=== PATIENT | female | born 1950 | race Caucasian/White ===

== ENCOUNTER 2017-03-10 22:05 | Inpatient (IN) | payer MEDICARE, BC ==
[2017-03-10] MEDS ORDERED: METHYLPREDNISOLONE PF 125MG/VIAL IVP ONE (22:08)
[2017-03-10] MEDS ORDERED: IPRATROPIUM/ALBUTEROL (0.5MG/3MG) NEB INH ONE (22:08)
--- NOTE | 2017-03-10 22:14 | Emergency Department Record ---
History of Present Illness - General Chief Complaint: Shortness of breath Stated Complaint: GUI Time Seen by Provider: 03/10/17 22:06 Source: Patient, EMS Mode of Arrival: EMS Limitations: No limitations - History of Present Illness Initial Comments: 66 yo female presents with several days of increasing shortness of breath. She was driving to the ED tonight for these symptoms and had to ticket puller and call EMS. She has a history of COPD. She reports cough with clear sputum. NO chest pain. She was place on CPAP with very good improvement in the field. She quit smoking 8 years ago. PCP [place]. ROJAS Complaint: Shortness of breath -: Days(s) Severity: Severe Quality: Other Consistency: Intermittent Improves With: Nothing Worsens With: Coughing Known History Of: COPD Associated Symptoms: Cough Treatments Prior to Arrival: None - Related Data Previous Rx's Medication Instructions Recorded Fluticasone/Salmeterol [Advair 1 puff INH BID #1 disk.w.dev 12/31/15 250-50 Diskus] Allergies Allergy/AdvReac Type Severity Reaction Status Date / Time No Known Drug Allergies Allergy Verified 05/11/16 15:09 Review of Systems Constitutional: Denies: Chills, Fever, Malaise, Weakness Eyes: Denies: Eye discharge ENT: Denies: Congestion, Throat pain Respiratory: Reports: Cough, Dyspnea, Wheezes Cardiovascular: Reports: Dyspnea on exertion. Denies: Edema Endocrine: Denies: Fatigue, Polydipsia, Polyuria Gastrointestinal: Denies: Abdominal pain, Diarrhea, Nausea, Vomiting Genitourinary: Denies: Dysuria, Urgency Musculoskeletal: Denies: Arthralgia, Back pain, Joint swelling, Myalgia Skin: Denies: Change in color, Rash Neurological: Denies: Headache, Numbness, Weakness Psychiatric: Denies: Anxiety Hematological/Lymphatic: Denies: Blood Clots, Easy bleeding, Easy bruising, Swollen glands Past Medical History - SOCIAL HISTORY Smoking Status: Former smoker - RESPIRATORY Hx Respiratory Disorders: Yes Hx Bronchitis: Yes Hx COPD: Yes Hx Pneumonia: Yes Comment:: November 2015-GUI collapsed, intubated x 24hrs. - CARDIOVASCULAR Hx Cardio Disorders: Yes Hx Coronary Artery Disease: Yes Comment:: carotid artery stent, murmur - NEURO Hx Neuro Disorders: No - GI Hx GI Disorders: Yes Hx Obstructive Bowel: Yes (d/t adhesions) - Hx Genitourinary Disorders: No - ENDOCRINE Hx Endocrine Disorders: Yes Hx Diabetes: (N/A) Hx Thyroid Disease: Yes (overactive thyroid) - MUSCULOSKELETAL Hx Musculoskeletal Disorders: Yes Hx Arthritis: Yes Hx Gout: Yes (x 1) Hx Osteoporosis: Yes - PSYCH Hx Psych Problems: Yes Hx Anxiety: Yes - HEMATOLOGY/ONCOLOGY Hx Hematology/Oncology Disorders: No Family Medical History Hx Cancer: Mother, Brother/Sister *Cancer Comment: uterine Hx Diabetes: Father, Mother, Brother/Sister Hx Heart Disease: Father Hx Stroke: Mother Physical Exam - General General Appearance: Alert, Oriented x3, Cooperative, Mild distress, Anxious, Other (Alert, answers all questions) Limitations: No limitations - Head Head exam: Normal inspection - Eye Eye exam: Normal appearance, PERRL. negative: Conjunctival injection - ENT ENT exam: Normal exam, Mucous membranes moist Ear exam: Normal external inspection Nasal Exam: Normal inspection Mouth exam: Normal external inspection - Neck Neck exam: Normal inspection, Full ROM. negative: Tenderness - Respiratory Respiratory exam: Accessory muscle use, Decreased breath sounds, Prolonged expiratory, Respiratory distress (mild), Rhonchi, Wheezes. negative: Normal lung sounds bilaterally - Cardiovascular Cardiovascular Exam: Regular rate, Normal rhythm, Normal heart sounds - GI/Abdominal GI/Abdominal exam: Soft. negative: Tenderness - Rectal Rectal exam: Deferred - exam: Deferred - Extremities Extremities exam: Normal inspection, Full ROM, Normal capillary refill. negative: Pedal edema, Tenderness - Back Back exam: Reports: Normal inspection, Full ROM. Denies: Muscle spasm, Rash noted, Tenderness - Neurological Neurological exam: Alert, Normal gait, Oriented X3 - Psychiatric Psychiatric exam: Normal affect, Normal mood - Skin Skin exam: Dry, Intact, Normal color, Warm Course - Reevaluation(s) Reevaluation #1: The patient is improved after the Duoneb The work of breathing has improved EKG 22:26 NSR rate is 96, the axis is normal, the intervals are normal, ST normal. 03/10/17 22:40 03/10/17 22:55 The patient is resting comfortably alert on her baseline 2 liters that she uses at night. 03/10/17 23:07 The CBC was reviewed. No acute changes The CMP was without significant changes. The BNP was mildly elevated The CXR was read as being consistent COPD with bibasilar atelectasis. 03/10/17 23:10 The Troponin is negative The plan is to admit for COPD exacerbation 03/10/17 23:16 The patient is stable for admission. No clinical signs of oxygen retention. She will be kept on her typical oxygen of 2 liters Medical Decision Making - Lab Data Result diagrams: 03/10/17 22:22 03/10/17 22:22 Disposition Disposition: Admit Clinical Impression: COPD (chronic obstructive pulmonary disease) Disposition: Still a Patient at [facility] Decision to Admit: Admit from ER Decision to Admit Date: 03/10/17 Decision to Admit Time: 23:11 Condition: (2) Stable Forms: Patient Portal Access Time of Disposition: 22:42 Quality - Quality Measures Quality Measures: N/A - Blood Pressure Screening Does Patient Have Any of the Following: No Blood Pressure Classification: Pre-Hypertensive BP Reading Systolic Measurement: 133 Diastolic Measurement: 86 Screening for High Blood Pressure: < Pre-Hypertensive BP, F/U Documented > [ [id number]] Pre-Hypertensive Follow-up Interventions: Referral to alternative/primary care provider.
[2017-03-10 22:29] LABS: BASO % 1.2 % (0-6); EOS % 2.6 % (0-6); GRAN % 58.1 % (47-80); HEMATOCRIT 40.9 % (35.0-47.0); HEMOGLOBIN 12.9 gm/dl (11.6-16.0); LYMPH % 23.5 % (16-45); MEAN CORPUSCULAR HEMOGLOBIN 26.8 pg (27-33); MEAN CORPUSCULAR HGB CONC 31.5 g/dl (32-36); MEAN PLATELET VOLUME 10.1 fl (7.4-10.4); MONO % 14.6 % (0-9); PLATELET COUNT 489 K/uL (130-400); RED BLOOD COUNT 4.81 M/uL (3.80-5.40); RED CELL DISTRIBUTION WIDTH 13.8 % (11.5-14.5); WHITE BLOOD COUNT W/O DIFF 7.3 K/uL (4.2-12.2)
[2017-03-10 22:44] LABS: ALB/GLOB RATIO 0.9 (1.1-1.8); ALBUMIN 3.7 g/dL (4.0-5.0); ALKALINE PHOSPHATASE 76 U/L (35-104); ALT/SGPT 14 U/L (<33); AST/SGOT 18 U/L (10.0-35.0); BLOOD UREA NITROGEN 11 mg/dL (8-23); CREATININE 0.6 mg/dL (0.5-0.9); EST GLOMERULAR FILTRATION RATE > 60 mL/min; GLUCOSE,RANDOM 103 mg/dL (74-109); TOTAL PROTEIN 7.7 g/dL (6.6-8.7)
[2017-03-10] MEDS ORDERED: ACETAMINOPHEN 500 MG TABLET PO PRN (23:33)
[2017-03-10] MEDS ORDERED: ALBUTEROL SULFATE (0.083%) 2.5 MG/3 ML NEB INH PRN (23:33)
[2017-03-10] MEDS: METHYLPREDNISOLONE PF 125MG/VIAL IVP SCH (23:34)
[2017-03-10 23:43] LABS: INR 0.96; PROTHROMBIN TIME (PATIENT) 10.4 SECONDS (9.5-12.1)
[2017-03-10] MEDS: CEFTRIAXONE SODIUM 1 GM in 0.9 % SODIUM CHLORIDE 100ML 100 ML IVPB SCH (23:56)
[2017-03-11] MEDS: IPRATROPIUM/ALBUTEROL (0.5MG/3MG) NEB INH SCH ×6 (03:32→22:10)
[2017-03-11] MEDS: METHYLPREDNISOLONE PF 125MG/VIAL IVP SCH ×2 (08:25→15:38)
[2017-03-11] MEDS: AZITHROMYCIN 500 MG TABLET PO SCH (09:32)
[2017-03-11] MEDS: ENOXAPARIN 40 MG/0.4 ML SYR SQ SCH (09:32)
--- NOTE | 2017-03-11 13:53 | RADIOLOGY REPORT ---
EXAM: CHEST AP or PA ONLY HISTORY: DIFFICULTY IN BREATHING, COUGH FOR A COUPLE WEEKS NOW. INCREASING SHORTNESS OF BREATH. SOME CHILLS. TECHNIQUE: AP portable chest. COMPARISON: AP chest 05/11/16. FINDINGS: Heart size appears stable, within normal limits. Lungs again appear hyperinflated suggesting COPD. Considerable clearing of the left base in the interval with a minor amount of bibasilar streaky atelectasis or infiltrate currently. No definite pleural effusion or pneumothorax evident. IMPRESSION: 1. HYPERINFLATION SUGGESTING COPD. 2. MILD BIBASILAR STREAKY ATELECTASIS OR INFILTRATE. JOB NUMBER: [id number] MTDD
--- NOTE | 2017-03-11 14:52 | History & Physical ---
History of Present Illness - Date of Service Date of Service for History & Physical: 03/11/17 - History of Present Illness Admitting Diagnosis: COPD exacerbation History of Present Illness: 66yo female with CC of difficulty in breathing. She has history of COPD, hyperthyroidism, osteoporosis, anxiety, CAD and carotid artery stenosis. She was last hospitalized for COPD exacerbation in April of 2016. She has had one exacerbation requiring intubation in 2016. Patient had been feeling poorly for about 4 days. Says she developed a cough which she usually does not have that has been productive of white phlegm at times. Has been feeling more short of breath. Was at her daughter's house last night and used her rescue inhaler before trying to drive home. She got about half way home and felt very SOB and pulled over. EMS was called and brought her to the ED. Patient arrived by EMS with good response to the CPAP according to ED physician. Heart rate was 93bpm, O2 sat was 92% on room air with 20 RR. BP was 133/86. EKG showed sinus rhythm without ST changes. She had a CXR that showed bibasilar streaks but no definite infiltrate. She received a duoneb breathing treatment with improvement of her work of breathing and was placed on 2L o2 via NC. First set of CE returned wnl range and the rest of her labs were unremarkable. she was admitted for COPD exacerbation. 03/11/17- patient states she is feeling better today but not back to baseline. She reports that she no longer feels short of breath and is resting comfortably without evidence of respiratory distress. She continues to wear the 2L of O2 via NC. She says her cough is a little less frequent today. Denies chest pain. Does feel like she gets winded easily walking to the bathroom. Still follows with pulmonology. she can't remember name but thinks he is at [facility]. pcp: [facility] Travel Screening - Travel/Exposure Within Last 30 Days Have you traveled within the last 30 days?: No - Travel/Exposure Within Last Year Have you traveled outside the [place] in the last year?: No - Additonal Travel Details Have you been exposed to anyone with a communicable illness?: No - Travel Symptoms Symptom Screening: None Review of Systems Constitutional: Denies: Chills, Fever, Malaise, Weakness Eyes: Denies: Eye discharge ENT: Denies: Congestion, Throat pain Respiratory: Reports: Cough, Dyspnea, Wheezes Cardiovascular: Reports: Dyspnea on exertion. Denies: Edema Endocrine: Denies: Fatigue, Polydipsia, Polyuria Gastrointestinal: Denies: Abdominal pain, Diarrhea, Nausea, Vomiting Genitourinary: Denies: Dysuria, Urgency Musculoskeletal: Denies: Arthralgia, Back pain, Joint swelling, Myalgia Skin: Denies: Change in color, Rash Neurological: Denies: Headache, Numbness, Weakness Psychiatric: Denies: Anxiety Hematological/Lymphatic: Denies: Blood Clots, Easy bleeding, Easy bruising, Swollen glands Past Medical History - SOCIAL HISTORY Smoking Status: Former smoker Alcohol Use: None Drug Use: None - RESPIRATORY Hx Respiratory Disorders: Yes Hx Bronchitis: Yes Hx COPD: Yes Hx Pneumonia: Yes Comment:: November 2015-GUI collapsed, intubated x 24hrs. - CARDIOVASCULAR Hx Cardio Disorders: Yes Hx Abnormal EKG: Yes Hx Irregular Heartbeat: Yes Hx Coronary Artery Disease: Yes Comment:: carotid artery stent, murmur - NEURO Hx Neuro Disorders: No Comment:: Rt Sided carotid stent - GI Hx GI Disorders: Yes Hx Obstructive Bowel: Yes (d/t adhesions) - Hx Genitourinary Disorders: No - ENDOCRINE Hx Endocrine Disorders: Yes Hx Diabetes: (N/A) Hx Thyroid Disease: Yes (overactive thyroid) - MUSCULOSKELETAL Hx Musculoskeletal Disorders: Yes Hx Arthritis: Yes Hx Gout: Yes (x 1) Hx Osteoporosis: Yes - PSYCH Hx Psych Problems: Yes Hx Anxiety: Yes - HEMATOLOGY/ONCOLOGY Hx Hematology/Oncology Disorders: No Family Medical History Any Significant Family History?: Yes Hx Cancer: Mother, Brother/Sister *Cancer Comment: uterine Hx Diabetes: Father, Mother, Brother/Sister Hx Heart Disease: Father Hx Stroke: Mother H&P Meds/Allergies - Allergies Allergies: Allergies Allergy/AdvReac Type Severity Reaction Status Date / Time No Known Drug Allergies Allergy Verified 05/11/16 15:09 - Home Medications Previous Rx's Medication Instructions Recorded Fluticasone/Salmeterol [Advair 1 puff INH BID #1 disk.w.dev 12/31/15 250-50 Diskus] - Active Medications Active Medications: Current Medications Acetaminophen (Tylenol 500mg Tab) 500 mg PO Q6H PRN PRN Reason: PAIN/TEMP Albuterol Sulfate () 2.5 mg INH RESP.Q2H PRN PRN Reason: DIFFICULTY IN BREATHING Albuterol/Ipratropium (Duoneb) 3 ml INH RESP.Q4H.WA [facility] Last Admin: 03/11/17 14:06 Dose: 3 ml Azithromycin (Zithromax) 500 mg PO DAILY [facility] Last Admin: 03/11/17 09:32 Dose: 500 mg Ezetimibe (Zetia) 10 mg PO QHS [facility] Enoxaparin Sodium (Lovenox) 40 mg SQ DAILY [facility] Last Admin: 03/11/17 09:32 Dose: 40 mg Ceftriaxone Sodium 1 gm/ (Sodium Chloride) 100 mls @ 100 mls/hr IVPB Q24H [facility] Stop: 03/16/17 00:01 Last Infusion: 03/11/17 01:07 Dose: Infused Methylprednisolone Sodium Succinate (Solu-Medrol) 60 mg IVP Q8H [facility] Last Admin: 03/11/17 08:25 Dose: 65 mg Non-Formulary Medication (Raloxifene Hcl [Evista]) 60 mg PO DAILY [facility] Simvastatin (Zocor) 80 mg PO QHS [facility] Physical Exam - Vital Signs Vital Signs: Vital Signs - Last 24 Hrs Temp Pulse Pulse Resp BP Pulse Ox 03/11/17 10:20 96 H 20 93 L 03/11/17 09:00 97 H 20 03/11/17 07:33 98.5 F 97 H 20 132/68 93 L 03/11/17 05:51 94 H 18 97 03/11/17 03:33 96 H 20 98 03/10/17 23:33 98.9 F 83 24 113/38 93 L 03/10/17 23:32 16 - General General Appearance: Alert, Oriented x3, Cooperative, No acute distress Limitations: No limitations - Head Head exam: Normal inspection - Eye Eye exam: Normal appearance, PERRL. negative: Conjunctival injection - ENT ENT exam: Normal exam, Mucous membranes moist Ear exam: Normal external inspection Nasal Exam: Normal inspection Mouth exam: Normal external inspection - Neck Neck exam: Normal inspection, Full ROM. negative: Tenderness - Respiratory Respiratory exam: Decreased breath sounds, Prolonged expiratory. negative: Normal lung sounds bilaterally, Accessory muscle use, Respiratory distress, Rhonchi, Wheezes - Cardiovascular Cardiovascular Exam: Regular rate, Normal rhythm, Normal heart sounds - GI/Abdominal GI/Abdominal exam: Soft. negative: Tenderness - Rectal Rectal exam: Deferred - exam: Deferred - Extremities Extremities exam: Normal inspection, Full ROM, Normal capillary refill. negative: Pedal edema, Tenderness - Back Back exam: Reports: Normal inspection, Full ROM. Denies: Muscle spasm, Rash noted, Tenderness - Neurological Neurological exam: Alert, Normal gait, Oriented X3 - Psychiatric Psychiatric exam: Normal affect, Normal mood - Skin Skin exam: Dry, Intact, Normal color, Warm Results - Labs Result Diagrams: 03/10/17 22:22 03/10/17 22:22 Labs Last 24 Hours: Laboratory Results - last 24 hr 03/11/17 05:30 Troponin T < 0.010 - Imaging and Cardiology Chest x-ray Status: Report reviewed (bibasilar streaking; no definite infiltrate) VTE H&P Assessment - Risk for VTE Risk for VTE: Yes Risk Level: Moderate Risk Assessment Date: 03/11/17 Risk Assessment Time: 15:26 VTE Orders Placed or Will Be Placed: Yes Plan - Inpatient Certification Inpatient Certification: Admit to inpatient care: Based on my medical assessment, after consideration of patient's risk factors (age, co-morbidities and patient presenting symptoms and acuity), I expect that this patient will remain in the hospital greater than or equal to two midnights and that the services needed warrant inpatient care because: Patient Risk Factors: [age, COPD with exacerbation, respiratory distress] Estimated length of stay: [48-72H] The patient may reasonably be expected to be discharged or transferred to a hospital within 96 hours after admission to [facility]. Services needed: [IV abx, IV steroids, supplemental oxygen] Post hospital care (if known): [] I certify that my determination is in accordance with my understanding of Medicare requirements for reasonable and necessary inpatient services. 03/11/17 15:26 - Detailed Diagnosis and Plan (1) COPD with acute exacerbation Current Visit: No Status: Acute Base Code: J44.1 - CHRONIC OBSTRUCTIVE PULMONARY DISEASE W (ACUTE) EXACERBATION Comment: 03/11/17- Improved. respiratory rate stable at 20 and no increased work of breathing/accessory muscle use. Patient states her GUI has improved as well as her cough. CXR negative for infiltrate. Cardiac enzymes wnl x3. EKG continues to show NSR. -cotninue solumdedrol 60mg IV q8H. will transition to daily tomorrow. -continue rocephin 1gm IV daily and azithromycin 500mg po daily -continue oxygen via NC 2L -continue home inhalers, spiriva and advair -cotninue duoneb q4H prn sob -labs qam -vitals q8H (2) DVT prophylaxis Current Visit: No Status: Acute Base Code: [id number] - Comment: 03/11/17- lovenox 40mg sq daily (3) Full code status Current Visit: Yes Status: Acute Base Code: Z78.9 - OTHER SPECIFIED HEALTH STATUS Comment: 03/11/17- patient is full code.
[2017-03-11] MEDS ORDERED: SIMVASTATIN PO SCH (22:00)
[2017-03-11] MEDS ORDERED: EZETIMIBE PO SCH (22:00)
[2017-03-11] MEDS: SIMVASTATIN 20 MG TABLET PO SCH (22:17)
[2017-03-11] MEDS: EZETIMIBE 10 MG TABLET PO SCH (22:17)
[2017-03-12] MEDS: METHYLPREDNISOLONE PF 125MG/VIAL IVP SCH ×3 (01:00→10:07)
[2017-03-12] MEDS: CEFTRIAXONE SODIUM 1 GM in 0.9 % SODIUM CHLORIDE 100ML 100 ML IVPB SCH (01:02)
[2017-03-12] MEDS: IPRATROPIUM/ALBUTEROL (0.5MG/3MG) NEB INH SCH ×6 (02:17→22:08)
[2017-03-12 06:43] LABS: BASO % 0.1 % (0-6); HEMATOCRIT 36.7 % (35.0-47.0); HEMOGLOBIN 11.4 gm/dl (11.6-16.0); LYMPH % 4.7 % (16-45); MEAN CELL VOLUME 85.2 fl (81-97); MEAN CORPUSCULAR HGB CONC 31.1 g/dl (32-36); MEAN PLATELET VOLUME 9.7 fl (7.4-10.4); MONO % 2.1 % (0-9); PLATELET COUNT 506 K/uL (130-400); RED BLOOD COUNT 4.31 M/uL (3.80-5.40); RED CELL DISTRIBUTION WIDTH 13.8 % (11.5-14.5)
[2017-03-12 06:56] LABS: MEAN CORPUSCULAR HEMOGLOBIN 26.4 pg (27-33)
[2017-03-12 07:13] LABS: ANISOCYTOSIS 1+; PLATELET ESTIMATE INCREASED (NORMAL)
[2017-03-12 08:06] LABS: ALBUMIN 3.4 g/dL (4.0-5.0); ALKALINE PHOSPHATASE 61 U/L (35-104); ALT/SGPT 11 U/L (<33); AST/SGOT 12 U/L (10.0-35.0); BLOOD UREA NITROGEN 13 mg/dL (8-23); CREATININE 0.5 mg/dL (0.5-0.9); EST GLOMERULAR FILTRATION RATE > 60 mL/min; GLUCOSE,RANDOM 163 mg/dL (74-109); TOTAL PROTEIN 6.8 g/dL (6.6-8.7)
[2017-03-12] MEDS: ENOXAPARIN 40 MG/0.4 ML SYR SQ SCH (09:37)
[2017-03-12] MEDS: AZITHROMYCIN 500 MG TABLET PO SCH (09:37)
--- NOTE | 2017-03-12 11:41 | Physician Progress Note ---
Subjective - Date Date of Physician Progress Note: 03/12/17 - Subjective Subjective Comment: 03/12/17- Patient states she continues to improve. still having some cough that is not productive but more than her baseline. She is no longer having difficulty in breathing. Had one episode last night where she started coughing and couldn't stop which made her feel anxious and short of breath. That resolved. She hasn't felt like she needs the oxygen today. Objective - Vital Signs Vital Signs: Vital Signs - Last 24 Hrs Temp Pulse Pulse Resp BP Pulse Ox 03/12/17 10:09 92 H 18 03/12/17 08:00 99.1 F 95 H 18 123/62 95 03/12/17 05:53 96 H 18 93 L 03/12/17 02:18 79 18 99 03/12/17 00:00 98.1 F 95 H 20 117/63 95 03/11/17 22:10 102 H 18 93 L 03/11/17 21:00 97 H 18 03/11/17 18:58 93 H 18 28 L 03/11/17 15:00 98.8 F 99 H 18 127/69 93 L - General General Appearance: Alert, Oriented x3, Cooperative, No acute distress Limitations: No limitations - Head Head exam: Normal inspection - Eye Eye exam: Normal appearance, PERRL. negative: Conjunctival injection - ENT ENT exam: Normal exam, Mucous membranes moist Ear exam: Normal external inspection Nasal Exam: Normal inspection Mouth exam: Normal external inspection - Neck Neck exam: Normal inspection, Full ROM. negative: Tenderness - Respiratory Respiratory exam: Decreased breath sounds, Prolonged expiratory. negative: Normal lung sounds bilaterally, Accessory muscle use, Respiratory distress, Rhonchi, Wheezes - Cardiovascular Cardiovascular Exam: Regular rate, Normal rhythm, Normal heart sounds - GI/Abdominal GI/Abdominal exam: Soft. negative: Tenderness - Rectal Rectal exam: Deferred - exam: Deferred - Extremities Extremities exam: Normal inspection, Full ROM, Normal capillary refill. negative: Pedal edema, Tenderness - Back Back exam: Reports: Normal inspection, Full ROM. Denies: Muscle spasm, Rash noted, Tenderness - Neurological Neurological exam: Alert, Normal gait, Oriented X3 - Psychiatric Psychiatric exam: Normal affect, Normal mood - Skin Skin exam: Dry, Intact, Normal color, Warm Assessment and Plan - Assessment and Plan (1) COPD with acute exacerbation Current Visit: No Status: Acute Base Code: J44.1 - CHRONIC OBSTRUCTIVE PULMONARY DISEASE W (ACUTE) EXACERBATION Comment: 03/12/17- continues to improve.CXR negative for infiltrate. Cardiac enzymes wnl x3. EKG continues to show NSR. -transition solumedrol to 60mg IV daily -continue rocephin 1gm IV daily and azithromycin 500mg po daily -continue oxygen via NC 2L at night and to keep sats >92% during the day -continue home inhalers, spiriva and advair -cotninue duoneb q4H prn sob -labs qam -vitals q8H (2) DVT prophylaxis Current Visit: No Status: Acute Base Code: [id number] - Comment: 03/12/17- lovenox 40mg sq daily (3) Full code status Current Visit: Yes Status: Acute Base Code: Z78.9 - OTHER SPECIFIED HEALTH STATUS Comment: 03/12/17- patient is full code. Results - Labs Result Diagrams: 03/12/17 06:25 03/12/17 06:25 Labs Last 24 Hours: Laboratory Results - last 24 hr 03/12/17 03/12/17 06:25 06:25 WBC 13.0 H RBC 4.31 Hgb 11.4 L Hct 36.7 MCV 85.2 MCH 26.4 L MCHC 31.1 L RDW 13.8 Plt Count 506 H MPV 9.7 Neutrophils % 91.0 H Band Neutrophils % 1.0 Lymphocytes % 4.7 L Monocytes % 2.1 Eosinophils % 0.0 Basophils % 0.1 Lymphocytes 7.0 L Monocytes 1.0 Platelet Estimate Increased Anisocytosis 1+ Sodium 140 Potassium 4.4 Chloride 102 Carbon Dioxide 27.0 Anion Gap 11.0 BUN 13 Creatinine 0.5 Estimated GFR > 60 Random Glucose 163 H Calcium 9.0 Total Bilirubin 0.20 AST 12 ALT 11 Alkaline Phosphatase 61 Total Protein 6.8 Albumin 3.4 L Globulin 3.4 Albumin/Globulin Ratio 1.0 L DVT/PE Assessment - Risk for VTE Risk for VTE: No Risk Level: Moderate Risk Assessment Date: 03/11/17 Risk Assessment Time: 15:26 VTE Orders Placed or Will Be Placed: Yes - Active Medicaitons Current Medications: Current Medications Acetaminophen (Tylenol 500mg Tab) 500 mg PO Q6H PRN PRN Reason: PAIN/TEMP Albuterol Sulfate () 2.5 mg INH RESP.Q2H PRN PRN Reason: DIFFICULTY IN BREATHING Albuterol/Ipratropium (Duoneb) 3 ml INH RESP.Q4H.WA [facility] Last Admin: 03/12/17 10:08 Dose: 3 ml Azithromycin (Zithromax) 500 mg PO DAILY [facility] Last Admin: 03/12/17 09:37 Dose: 500 mg Ezetimibe (Zetia) 10 mg PO QHS [facility] Last Admin: 03/11/17 22:17 Dose: 10 mg Enoxaparin Sodium (Lovenox) 40 mg SQ DAILY [facility] Last Admin: 03/12/17 09:37 Dose: 40 mg Ceftriaxone Sodium 1 gm/ (Sodium Chloride) 100 mls @ 100 mls/hr IVPB Q24H [facility] Stop: 03/16/17 00:01 Last Infusion: 03/12/17 02:02 Dose: Infused Methylprednisolone Sodium Succinate (Solu-Medrol) 60 mg IVP DAILY [facility] Last Admin: 03/12/17 10:07 Dose: Not Given Non-Formulary Medication (Raloxifene Hcl [Evista]) 60 mg PO DAILY [facility] Simvastatin (Zocor) 80 mg PO QHS [facility] Last Admin: 03/11/17 22:17 Dose: 80 mg AMI Plan - Labs Result Diagrams: 03/12/17 06:25 03/12/17 06:25
[2017-03-12] MEDS ORDERED: BENZONATATE 100 MG CAPSULE PO PRN (11:43)
[2017-03-12] MEDS: SIMVASTATIN 20 MG TABLET PO SCH (21:51)
[2017-03-12] MEDS: EZETIMIBE 10 MG TABLET PO SCH (21:51)
[2017-03-13] MEDS: IPRATROPIUM/ALBUTEROL (0.5MG/3MG) NEB INH SCH ×6 (02:47→22:07)
[2017-03-13] MEDS: CEFTRIAXONE SODIUM 1 GM in 0.9 % SODIUM CHLORIDE 100ML 100 ML IVPB SCH (06:30)
[2017-03-13] MEDS: METHYLPREDNISOLONE PF 125MG/VIAL IVP SCH (11:36)
[2017-03-13] MEDS: ENOXAPARIN 40 MG/0.4 ML SYR SQ SCH (11:36)
[2017-03-13] MEDS: AZITHROMYCIN 500 MG TABLET PO SCH (11:36)
[2017-03-13] MEDS: GUAIFENESIN 1,200 MG TABLET PO SCH ×2 (17:31→21:52)
--- NOTE | 2017-03-13 19:22 | Physician Progress Note ---
Subjective - Date Date of Physician Progress Note: 03/13/17 - Subjective Subjective Comment: 03/13/17- patient states she was feeling better this morning but feels tighter in her chest as the afternoon progressed. Just feeling like she isn't moving air as well as she had been. Still coughing without much production but patient states she feels like she needs to get stuff up. She has felt short of breath at times today. She has tried not to wear her oxygen during the day and nursing has had to remind her to put it back on at times. Objective - Vital Signs Vital Signs: Vital Signs - Last 24 Hrs Temp Pulse Pulse Pulse Resp BP Pulse Ox 03/13/17 16:10 93 L 03/13/17 16:00 94 H 18 145/56 87 L 03/13/17 14:03 89 22 82 L 03/13/17 10:00 71 18 95 03/13/17 09:00 76 18 03/13/17 08:00 98.1 F 76 18 135/81 91 L 03/13/17 06:29 89 16 100 03/13/17 02:48 81 16 98 03/13/17 00:00 98.1 F 89 18 114/62 94 L 03/12/17 22:08 81 18 95 03/12/17 21:00 90 16 - General General Appearance: Alert, Oriented x3, Cooperative, No acute distress Limitations: No limitations - Head Head exam: Normal inspection - Eye Eye exam: Normal appearance, PERRL. negative: Conjunctival injection - ENT ENT exam: Normal exam, Mucous membranes moist Ear exam: Normal external inspection Nasal Exam: Normal inspection Mouth exam: Normal external inspection - Neck Neck exam: Normal inspection, Full ROM. negative: Tenderness - Respiratory Respiratory exam: Accessory muscle use (slight use of intercostals while speaking), Decreased breath sounds, Prolonged expiratory. negative: Normal lung sounds bilaterally, Respiratory distress, Rhonchi, Wheezes - Cardiovascular Cardiovascular Exam: Regular rate, Normal rhythm, Normal heart sounds - GI/Abdominal GI/Abdominal exam: Soft. negative: Tenderness - Rectal Rectal exam: Deferred - exam: Deferred - Extremities Extremities exam: Normal inspection, Full ROM, Normal capillary refill. negative: Pedal edema, Tenderness - Back Back exam: Reports: Normal inspection, Full ROM. Denies: Muscle spasm, Rash noted, Tenderness - Neurological Neurological exam: Alert, Normal gait, Oriented X3 - Psychiatric Psychiatric exam: Normal affect, Normal mood - Skin Skin exam: Dry, Intact, Normal color, Warm Assessment and Plan - Assessment and Plan (1) COPD with acute exacerbation Current Visit: No Status: Acute Base Code: J44.1 - CHRONIC OBSTRUCTIVE PULMONARY DISEASE W (ACUTE) EXACERBATION Comment: 03/13/17- patient is slightly worse today clinically. She has vibratory pep valve at home which son is goign to bring in. -add mucinex 1200mg po bid -continue solumedrol to 60mg IV daily -change rocephin and azithromycin to levaquin 750mg po daily x7 days -continue oxygen via NC 2L at night and to keep sats >92% during the day. She will need a repeat home oxygen qualifier to see if she can get a portable concentrator. She says the one she has currently is too heavy for her to carry and therefore cannot ambulate with it. -continue home inhalers, spiriva and advair -cotninue duoneb q4H prn sob -labs qam -vitals q8H (2) DVT prophylaxis Current Visit: No Status: Acute Base Code: [id number] - Comment: 03/13/17- lovenox 40mg sq daily (3) Full code status Current Visit: Yes Status: Acute Base Code: Z78.9 - OTHER SPECIFIED HEALTH STATUS Comment: 03/13/17- patient is full code. Results - Labs Result Diagrams: 03/12/17 06:25 03/12/17 06:25 DVT/PE Assessment - Risk for VTE Risk for VTE: No Risk Level: Moderate Risk Assessment Date: 03/11/17 Risk Assessment Time: 15:26 VTE Orders Placed or Will Be Placed: Yes - Active Medicaitons Current Medications: Current Medications Acetaminophen (Tylenol 500mg Tab) 500 mg PO Q6H PRN PRN Reason: PAIN/TEMP Albuterol Sulfate () 2.5 mg INH RESP.Q2H PRN PRN Reason: DIFFICULTY IN BREATHING Albuterol/Ipratropium (Duoneb) 3 ml INH RESP.Q4H.[facility] Last Admin: 03/13/17 14:02 Dose: 3 ml Benzonatate (Tessalon) 100 mg PO TID PRN PRN Reason: COUGH Ezetimibe (Zetia) 10 mg PO QHS [facility] Last Admin: 03/12/17 21:51 Dose: 10 mg Enoxaparin Sodium (Lovenox) 40 mg SQ DAILY [facility] Last Admin: 03/13/17 11:36 Dose: 40 mg Guaifenesin (Mucinex) 1,200 mg PO BID [facility] Last Admin: 03/13/17 17:31 Dose: 1,200 mg Methylprednisolone Sodium Succinate (Solu-Medrol) 60 mg IVP DAILY [facility] Last Admin: 03/13/17 11:36 Dose: 60 mg Non-Formulary Medication (Raloxifene Hcl [Evista]) 60 mg PO DAILY [facility] Simvastatin (Zocor) 80 mg PO QHS [facility] Last Admin: 03/12/17 21:51 Dose: 80 mg AMI Plan - Labs Result Diagrams: 03/12/17 06:25 03/12/17 06:25
[2017-03-13] MEDS: SIMVASTATIN 20 MG TABLET PO SCH (21:50)
[2017-03-13] MEDS: EZETIMIBE 10 MG TABLET PO SCH (21:51)
[2017-03-13] MEDS: RALOXIFENE HCL 60 MG PO SCH ×2 (21:59)
[2017-03-14] MEDS: IPRATROPIUM/ALBUTEROL (0.5MG/3MG) NEB INH SCH ×2 (07:54→10:29)
[2017-03-14] MEDS ORDERED: LEVOFLOXACIN 500 MG TABLET PO SCH (10:00)
[2017-03-14] MEDS: ENOXAPARIN 40 MG/0.4 ML SYR SQ SCH (10:01)
[2017-03-14] MEDS: GUAIFENESIN 1,200 MG TABLET PO SCH (10:01)
[2017-03-14] MEDS: METHYLPREDNISOLONE PF 125MG/VIAL IVP SCH (10:01)
--- NOTE | 2017-03-14 10:41 | Discharge Summary ---
Providers Discharge Summary Date: 03/14/17 Date of admission: 03/10/17 23:28 Expected Date of Discharge: 03/14/17 Attending physician: Brandon Christianson Primary care physician: Ina Borjas Physical Exam - Vital Signs Vital Signs: Vital Signs - Last 24 Hrs Temp Pulse Pulse Pulse Resp BP Pulse Ox 03/13/17 23:00 98.1 F 82 24 153/88 93 L 03/13/17 22:10 86 18 95 03/13/17 21:00 86 18 03/13/17 16:10 93 L 03/13/17 16:00 94 H 18 145/56 87 L 03/13/17 14:03 89 22 82 L - General General Appearance: Alert, Oriented x3, Cooperative, No acute distress Limitations: No limitations - Head Head exam: Normal inspection - Eye Eye exam: Normal appearance, PERRL. negative: Conjunctival injection - ENT ENT exam: Normal exam, Mucous membranes moist Ear exam: Normal external inspection Nasal Exam: Normal inspection Mouth exam: Normal external inspection - Neck Neck exam: Normal inspection, Full ROM. negative: Tenderness - Respiratory Respiratory exam: Decreased breath sounds, Prolonged expiratory. negative: Normal lung sounds bilaterally, Accessory muscle use, Respiratory distress, Rhonchi, Wheezes - Cardiovascular Cardiovascular Exam: Regular rate, Normal rhythm, Normal heart sounds - GI/Abdominal GI/Abdominal exam: Soft. negative: Tenderness - Rectal Rectal exam: Deferred - exam: Deferred - Extremities Extremities exam: Normal inspection, Full ROM, Normal capillary refill. negative: Pedal edema, Tenderness - Back Back exam: Reports: Normal inspection, Full ROM. Denies: Muscle spasm, Rash noted, Tenderness - Neurological Neurological exam: Alert, Normal gait, Oriented X3 - Psychiatric Psychiatric exam: Normal affect, Normal mood - Skin Skin exam: Dry, Intact, Normal color, Warm Hospitalization - Hospitalization Admission Diagnosis: COPD exacerbation - Problem List/Discharge Diagnosis (1) COPD with acute exacerbation Status: Acute Base Code: J44.1 - CHRONIC OBSTRUCTIVE PULMONARY DISEASE W ( ACUTE) EXACERBATION Comment: 03/14/17-improving. Feels like the PEP valve helps her significantly. -continue mucinex 1200mg po bid -continue levaquin 750mg po dily for total 7 day course -repeat home O2 shows need for continuous oxygen. Social work to set that up with hopefully a smaller, portable concentrator. script written. -continue home inhalers, spiriva and advair -cotninue duoneb q4H prn sob -follow up with Dr. borjas in 7-10 days and call to schedule follow up with [employer] Sales Representative rafa (2) DVT prophylaxis Status: Acute Base Code: [id number] - Comment: 03/14/17-lovenox 40mg sq daily (3) Full code status Status: Acute Base Code: Z78.9 - OTHER SPECIFIED HEALTH STATUS Comment: - patient is full code. - Hospitalization Course Disposition: Home, Self-Care Abnormal Labs: Abnormal Lab Results 03/12/17 03/12/17 Range/Units 06:25 06:25 WBC 13.0 H (4.2-12.2) K/uL Hgb 11.4 L (11.6-16.0) gm/dl MCH 26.4 L (27-33) pg MCHC 31.1 L (32-36) g/dl Plt Count 506 H (130-400) K/uL Neutrophils % 91.0 H (47-80) % Lymphocytes % 4.7 L (16-45) % Lymphocytes 7.0 L (16-45) % Random Glucose 163 H (74-109) mg/dL Albumin 3.4 L (4.0-5.0) g/dL Albumin/Globulin Ratio 1.0 L (1.1-1.8) Condition at Discharge: (2) Stable Discharge Medications - Discharge Medications Prescriptions: Benzonatate [Tessalon Perles] 100 mg PO TID PRN #30 capsule PRN Reason: Cough Guaifenesin [Mucinex] 1,200 mg PO BID #20 tab.er.12h Levofloxacin [Levaquin] 750 mg PO DAILY #6 tablet Prednisone [Prednisone 10Mg] 10 mg PO ASDIR #30 tab Home Medications: Ambulatory Orders Albuterol Sulfate [Proair Hfa] 1 - 2 puff IH .EVERY 4-6 HOURS PRN 11/05/15 [ Last Taken 05/11/16] Ezetimibe/Simvastatin [Vytorin 10-80 mg Tablet] 1 each PO QHS 11/05/15 [Last Taken 05/10/16] Raloxifene HCl [Evista] 60 mg PO DAILY 11/05/15 [Last Taken 05/11/16] Tiotropium [place] [Spiriva] 18 mcg IH DAILY 11/05/15 [Last Taken 05/11/16] Fluticasone/Salmeterol [Advair 250-50 Diskus] 1 puff INH BID #1 disk.w.dev 12/30 [Last Taken 05/11/16] Benzonatate [Tessalon Perles] 100 mg PO TID PRN #30 capsule 03/14/17 [Last Taken Unknown] Guaifenesin [Mucinex] 1,200 mg PO BID #20 tab.er.12h 03/14/17 [Last Taken Unknown] Levofloxacin [Levaquin] 750 mg PO DAILY #6 tablet 03/14/17 [Last Taken Unknown] Prednisone [Prednisone 10Mg] 10 mg PO ASDIR #30 tab 03/14/17 [Last Taken Unknown ] Discharge Plan - Discharge Instructions Activity at Discharge: Resume Usual Activities As Tolerated, Wear Oxygen At All Times Diet at Discharge: Regular Diet Instructions: COPD (Chronic Obstructive Pulmonary Disease) (DC), How Your Lungs Work (DC), Chronic Lung Disease and Infection Prevention (DC), Nutrition Guidelines for People with COPD (DC) Additional Instructions: 2 Activity: Resume Usual Activities As Tolerated Wear Oxygen At Night and with activity 2 Diet: Regular Diet 2 Consults: [] 2 Follow Up: [Please call Dr. 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 May use albuterol as needed every 4 hours as needed for shortness of breath Please call with any questions or concerns Return to ED for any new or worsening symptoms Quality Measures - Quality Measures Quality Measures: Advance Directives, Documentation of Current Medications in Medical Record, Elder Maltreatment Screen and Follow-Up Plan, Screening for High Blood Pressure and F/U Documented - Current Medications Quality Measure: Measure #130: Documentation of Current Medications Documentation of Current Medications: <Current Medications Documented/Reviewed> [G8427] - Blood Pressure Screening Quality Measure: Screening for High Blood Pressure and Follow-Up Documented Does Patient Have Any of the Following: No Blood Pressure Classification: Pre-Hypertensive BP Reading Systolic Measurement: 133 Diastolic Measurement: 86 Screening for High Blood Pressure: < Pre-Hypertensive BP, F/U Documented > [ G8950] Pre-Hypertensive Follow-up Interventions: Referral to alternative/primary care provider. - Advance Directives Quality Measure: Measure #47: Care Plan Advance Directives Established: No Advance Directives Information Provided To Patient: No Advance Directives on File: No Living Will: No Power of Panel Edge Sealer: No Advance Care Planning: <Care Plan/Decision Maker Documented; Discussed & Documented> [1123F] - Elder Abuse Suspicion Index Screening: Elder Abuse Suspicion Index Screening Rely on people for bathing, dressing, shopping, banking, etc: No Prevented from getting food, clothes, medication, etc: No Made to feel shamed or threatened by someone: No Forced to sign papers or use money against will: No Feel afraid, touched in ways not wanted or hurt physically: No Poor eye contact, withdrawn, malnourished, cuts or bruises: No Screening Result: Negative result EASI Reference Information: Willa GARCIA, Melinda C, Deuce D, Jennifer M.Development and validation of a tool to assist physicians identification of elder abuse: The Elder Abuse Suspicion Index (EASI ). Journal of Elder Abuse and Neglect, 2008; 20 (3): 276-300. - Elder Maltreatment Screen Quality Measures: Elder Maltreatment Screen and Follow-Up Plan Elder Maltreatment Screen: <Negative, No Follow-Up Plan Required> [G8734]
== END 2017-03-14 14:20 | disposition home or self-care (01) | DRG 192 ==
LOC: ER 22:05 → MEDSURG 23:28
PROVIDERS: ADMIT Emergency Medicine; ATTEND Emergency Medicine
DX: J44.1 Chronic obstructive pulmonary disease with (acute) exacerbation (principal); E05.90 Thyrotoxicosis, unspecified without thyrotoxic crisis or storm; M81.0 Age-related osteoporosis without current pathological fracture; I25.10 Atherosclerotic heart disease of native coronary artery without angina pectoris; F41.9 Anxiety disorder, unspecified; I65.29 Occlusion and stenosis of unspecified carotid artery; Z87.891 Personal history of nicotine dependence
CPT/HCPCS: 71010; 80053; 83880; 84484; 85025; 85027; 85610; 93005; 93010; 93041; 94010; 94640; 94761; 96374; 99223; 99233; 99239; 99285; J1650; J2930

== ENCOUNTER 2017-07-30 21:21 | Emergency (ER) | payer MEDICARE, BC ==
[2017-07-30] MEDS ORDERED: IPRATROPIUM/ALBUTEROL (0.5MG/3MG) NEB INH ONE (21:28)
[2017-07-30] MEDS ORDERED: METHYLPREDNISOLONE PF 125MG/VIAL IVP ONE (21:28)
[2017-07-30] MEDS ORDERED: MAGNESIUM SULFATE 16 MEQ in 0.9 % SODIUM CHLORIDE 100ML 100 ML IV ONE (21:29)
[2017-07-30 21:32] LABS: HEMATOCRIT 42.7 % (35.0-47.0); HEMOGLOBIN 13.3 gm/dl (11.6-16.0); MEAN CELL VOLUME 84.2 fl (81-97); MEAN CORPUSCULAR HEMOGLOBIN 26.2 pg (27-33); MEAN CORPUSCULAR HGB CONC 31.1 g/dl (32-36); MEAN PLATELET VOLUME 11.2 fl (7.4-10.4); PLATELET COUNT 283 K/uL (130-400); RED BLOOD COUNT 5.07 M/uL (3.80-5.40); RED CELL DISTRIBUTION WIDTH 15.4 % (11.5-14.5); WHITE BLOOD COUNT W/O DIFF 4.8 K/uL (4.2-12.2)
--- NOTE | 2017-07-30 21:32 | Emergency Department Record ---
History of Present Illness - General Stated Complaint: GUI Time Seen by Provider: 07/30/17 21:27 Source: Patient Mode of Arrival: EMS Limitations: No limitations - History of Present Illness Initial Comments: The patient is here due to a 2 day hx of progressively increasing SOB, GUI, and cough. She did cough some clear sputum up this AM but denies any fever, CP, back pain or RAMSEY. She does have a long hx of COPD and is on home O2. Due to worsening COPD EMS was called who found the patient with a low biox. The patient does wear home O2 mainly at night but was needing it during the day today. MD Complaint: Cough Onset/Timin -: Days(s) Severity: Moderate - Related Data Home Medications Medication Instructions Recorded Confirmed Last Taken Buspirone HCl [Buspar] 30 mg PO BID 07/30/17 07/30/17 Unknown Paroxetine HCl [Paxil] 20 mg PO DAILY 07/30/17 07/30/17 Unknown Previous Rx's Medication Instructions Recorded Fluticasone/Salmeterol [Advair 1 puff INH BID #1 disk.w.dev 12/31/15 250-50 Diskus] Allergies Allergy/AdvReac Type Severity Reaction Status Date / Time No Known Drug Allergies Allergy Verified 05/11/16 15:09 Review of Systems Constitutional: Denies: Chills, Fever Eyes: Denies: Eye discharge ENT: Reports: Congestion Respiratory: Reports: Cough, Dyspnea, Wheezes. Denies: Hemoptysis, Stridor Cardiovascular: Denies: Arrhythmia, Chest pain Endocrine: Denies: Fatigue Gastrointestinal: Denies: Nausea Genitourinary: Denies: Dysuria Musculoskeletal: Denies: Arthralgia Past Medical History - SOCIAL HISTORY Smoking Status: Former smoker Drug Use: None - RESPIRATORY Hx Respiratory Disorders: Yes Hx Bronchitis: Yes Hx COPD: Yes Hx Pneumonia: Yes Comment:: November 2015-GUI collapsed, intubated x 24hrs. - CARDIOVASCULAR Hx Cardio Disorders: Yes Hx Abnormal EKG: Yes Hx Irregular Heartbeat: Yes Hx Coronary Artery Disease: Yes Comment:: carotid artery stent, murmur - NEURO Hx Neuro Disorders: No Comment:: Rt Sided carotid stent - GI Hx GI Disorders: Yes Hx Obstructive Bowel: Yes (d/t adhesions) - Hx Genitourinary Disorders: No - ENDOCRINE Hx Endocrine Disorders: Yes Hx Diabetes: (N/A) Hx Thyroid Disease: Yes (overactive thyroid) - MUSCULOSKELETAL Hx Musculoskeletal Disorders: Yes Hx Arthritis: Yes Hx Gout: Yes (x 1) Hx Osteoporosis: Yes - PSYCH Hx Psych Problems: Yes Hx Anxiety: Yes - HEMATOLOGY/ONCOLOGY Hx Hematology/Oncology Disorders: No Family Medical History Hx Cancer: Mother, Brother/Sister *Cancer Comment: uterine Hx Diabetes: Father, Mother, Brother/Sister Hx Heart Disease: Father Hx Stroke: Mother Physical Exam - General General Appearance: Alert, Oriented x3, Cooperative, Mild distress - Head Head exam: Atraumatic, Normocephalic, Normal inspection - ENT Throat exam: Normal inspection. negative: Tonsillar erythema, Tonsillar exudate - Neck Neck exam: Normal inspection, Full ROM. negative: Tenderness - Respiratory Respiratory exam: Accessory muscle use, Decreased breath sounds, Respiratory distress (mild.), Wheezes (at the bases.). negative: Normal lung sounds bilaterally, Rhonchi, Stridor - Cardiovascular Cardiovascular Exam: Regular rate, Normal rhythm, Normal heart sounds - GI/Abdominal GI/Abdominal exam: Soft, Normal bowel sounds. negative: Tenderness - Extremities Extremities exam: Normal inspection, Full ROM, Normal capillary refill. negative: Tenderness - Neurological Neurological exam: Alert. negative: Motor sensory deficit Course - Reevaluation(s) Reevaluation #1: The patient is feeling better at this time. Her HR is decreasing and her RR also is decreasing slowly. She is feeling better and her breathing is less labored. 07/30/17 21:54 Reevaluation #2: The patient is feeling better at this time. Her breathing is less labored and she is feeling better. The patient is able to speak in full sentences and her RR and HR are still decreasing. 07/30/17 22:11 Reevaluation #3: The patient is still fairly labored with her breathing but does feel better. Her ABG did return with a moderate amount of CO2 retention which was measured at 56 and a PH of 7.27. Due to that fact I did recommend transfer to a larger hospital. The patient was intubated last year and sent to [facility] so she did want to return there. We will make contact with Dr. Harris for transfer. 07/30/17 22:47 Reevaluation #4: The patient is doing a little better and slowly making progress. She states she feels like her breathing is about 50% improved and she is not the least confused and not in worsening distress. Her breathing is still labored but no worsening and she is talking in full sentences. She will need a repeat ABG at [facility] but at this time I do not feel she needs Bipap. Her lung aeration is improving and she is feeling better. 07/30/17 23:06 07/30/17 23:38 Medical Decision Making - Data Complexity MDM Data: Labs Ordered and/or Reviewed, X-Ray Ordered and/or Reviewed, EKG Ordered and/or Reviewed - Lab Data Result diagrams: 07/30/17 21:15 07/30/17 21:15 - EKG Data -: EKG Interpreted by Me EKG: No Acute Changes, Unchanged From Previous - Radiology Data Radiology results: Report reviewed (CXR: R lung base infiltrate.) Critical Care Time Critical Care Time: Yes Total Critical Care Time: 90 Disposition Disposition: Transfer Clinical Impression: COPD with acute exacerbation Disposition: Acute Care Hospital Transfer Transfer To: [facility] Reason For Transfer: Pulmonary Accepting Physician: Steven. Time Discussed w/Accepting Physician: 22:58 Condition: (2) Stable Forms: Patient Portal Access Time of Disposition: 22:59 Quality - Quality Measures Quality Measures: N/A - Blood Pressure Screening View Details: Yes Does Patient Have Any of the Following: No Blood Pressure Classification: Normal BP Reading Systolic Measurement: 93 Diastolic Measurement: 71 Screening for High Blood Pressure: < Normal BP, F/U Not Required > [G8783]
[2017-07-30] MEDS ORDERED: ALBUTEROL SULFATE (0.083%) 2.5 MG/3 ML NEB INH ONE ×2 (21:34→22:01)
[2017-07-30 21:37] LABS: BLOOD UREA NITROGEN 8 mg/dL (8-23); CREATININE 0.5 mg/dL (0.5-0.9); EST GLOMERULAR FILTRATION RATE > 60 mL/min
[2017-07-30 21:40] LABS: GLUCOSE,RANDOM 143 mg/dL (74-109)
[2017-07-30 21:43] LABS: CREATINE PHOSPHOKINASE 63 U/L (26-192)
[2017-07-30] MEDS ORDERED: LEVOFLOXACIN/D5W 750 MG/150 ML BAG IVPB ONE (21:51)
[2017-07-30] MEDS ORDERED: 0.9 % SODIUM CHLORIDE 1,000 ML BAG IV ONE (21:53)
[2017-07-30 22:44] LABS: ALLEN TEST PASS; ARTERIAL BLD GAS O2 SATURATION 91.7 % (95-98); ARTERIAL BLOOD GAS HCO3 25.1 mmol/L (18-23); ARTERIAL BLOOD GAS PCO2 56.2 mmHg (35-48); ARTERIAL BLOOD GAS pH 7.27 (7.35-7.45); CARBOXYHEMOGLOBIN 0.9 % (0-1.5); METHEMOGLOBIN 0.2 % (0.0-1.5); O2 HEMOGLOBIN 90.7 % vol (94-99); TOTAL HEMOGLOBIN 12.1 g/dl (11.6-16)
--- NOTE | 2017-07-31 15:06 | RADIOLOGY REPORT ---
EXAM: CHEST, SINGLE VIEW HISTORY: SHORTNESS OF BREATH. HISTORY OF COPD. TECHNIQUE: A single AP portable upright view of the chest was performed. Comparison: 03/10/17. FINDINGS: The heart is normal in size. The mediastinum and pulmonary vasculature are normal. The lungs are hyperinflated consistent with COPD. There is focal infiltrate at the right lung base suspicious for developing pneumonia. There is minor atelectasis or scarring at the left lung base. The upper lung carrasquillo are clear. The bones appear intact. IMPRESSION: 1. MILD INFILTRATE AT THE RIGHT LUNG BASE SUSPICIOUS FOR DEVELOPING PNEUMONIA. 2. COPD. J[facility]BER: [id number] [facility]
== END 2017-07-30 23:27 | disposition short-term general hospital (02) ==
LOC: ER 21:21
DX: J44.1 Chronic obstructive pulmonary disease with (acute) exacerbation (principal); R91.8 Other nonspecific abnormal finding of lung field; R06.00 Dyspnea, unspecified; I25.10 Atherosclerotic heart disease of native coronary artery without angina pectoris; Z99.81 Dependence on supplemental oxygen; Z95.5 Presence of coronary angioplasty implant and graft; Z87.891 Personal history of nicotine dependence
CPT/HCPCS: 99291 ×2; 96365; 96366; 96375; 96368; 82550; 82375; 82553; 80048; 82803; 84484; 85027; 83880; 71045; 94640 ×2; 36600; 93005; 93010; J1956; J2930; J7613

== ENCOUNTER 2017-08-10 18:04 | Emergency (ER) | payer MEDICARE, BC ==
[2017-08-10] MEDS ORDERED: IPRATROPIUM/ALBUTEROL (0.5MG/3MG) NEB INH ONE (18:14)
[2017-08-10] MEDS ORDERED: METHYLPREDNISOLONE PF 125MG/VIAL IVP ONE (18:23)
--- NOTE | 2017-08-10 18:28 | Emergency Department Record ---
History of Present Illness - General Chief Complaint: Shortness of breath Stated Complaint: GUI Time Seen by Provider: 08/10/17 18:22 Source: Patient Mode of Arrival: EMS Limitations: No limitations - History of Present Illness Initial Comments: 66 yo female presents to ED for evaluation of worsening SOB symptoms this afternoon. Patient was seen 1 week ago, diagnosed with CAP, and transferred to [facility], was released yesterday on Prednisone and a medication for anxiety. Patient also reports history of O2 dependent COPD, reports that her SOB symptoms worsened today. Patient report non-productive cough symptoms, denies fever or chills. Patient also reports that she has been too weak to use the bathroom at home. MD Complaint: Shortness of breath Onset/Timin -: Days(s) Severity: Moderate Consistency: Constant Improves With: Bronchodilators, Oxygen Worsens With: Nothing Known History Of: COPD, Other Context: Recent URI Associated Symptoms: Cough, Orthopnia Treatments Prior to Arrival: Bronchodilator, Oxygen - Related Data Home Oxygen Therapy: Yes Home Oxygen Amount: 2 Liters Home Medications Medication Instructions Recorded Confirmed Last Taken Budesonide 1 mg IH BID 08/10/17 08/10/17 Unknown Guaifenesin [Mucinex] 600 mg PO BID 08/10/17 08/10/17 Unknown Previous Rx's Medication Instructions Recorded Fluticasone/Salmeterol [Advair 1 puff INH BID #1 disk.w.dev 12/31/15 250-50 Diskus] Allergies Allergy/AdvReac Type Severity Reaction Status Date / Time No Known Drug Allergies Allergy Verified 05/11/16 15:09 Travel Screening - Travel/Exposure Within Last 30 Days Have you traveled within the last 30 days?: No Review of Systems Constitutional: Reports: Weakness. Denies: Chills, Fever, Malaise, Night sweats Eyes: Denies: Eye discharge, Eye pain ENT: Reports: Congestion. Denies: Ear pain, Epistaxis Respiratory: Reports: Cough, Dyspnea, Wheezes Cardiovascular: Reports: Dyspnea on exertion. Denies: Arrhythmia, Chest pain, Palpitations Endocrine: Reports: Fatigue Gastrointestinal: Denies: Abdominal pain, Constipation, Nausea, Vomiting Genitourinary: Denies: Incontinence, Retention Musculoskeletal: Denies: Arthralgia, Back pain, Gout, Joint swelling Skin: Denies: Bruising, Change in color Neurological: Denies: Abnormal gait, Confusion, Headache Psychiatric: Denies: Anxiety Hematological/Lymphatic: Denies: Anemia, Blood Clots Past Medical History - SOCIAL HISTORY Smoking Status: Former smoker Alcohol Use: None Drug Use: None - RESPIRATORY Hx Respiratory Disorders: Yes Hx Bronchitis: Yes Hx COPD: Yes Hx Pneumonia: Yes Comment:: November 2015-GUI collapsed, intubated x 24hrs. - CARDIOVASCULAR Hx Cardio Disorders: Yes Hx Abnormal EKG: Yes Hx Irregular Heartbeat: Yes Hx Coronary Artery Disease: Yes Comment:: carotid artery stent, murmur - NEURO Hx Neuro Disorders: No Comment:: Rt Sided carotid stent - GI Hx GI Disorders: Yes Hx Obstructive Bowel: Yes (d/t adhesions) - Hx Genitourinary Disorders: No - ENDOCRINE Hx Endocrine Disorders: Yes Hx Diabetes: (N/A) Hx Thyroid Disease: Yes (overactive thyroid) - MUSCULOSKELETAL Hx Musculoskeletal Disorders: Yes Hx Arthritis: Yes Hx Gout: Yes (x 1) Hx Osteoporosis: Yes - PSYCH Hx Psych Problems: Yes Hx Anxiety: Yes - HEMATOLOGY/ONCOLOGY Hx Hematology/Oncology Disorders: No Family Medical History Any Significant Family History?: Yes Hx Cancer: Mother, Brother/Sister *Cancer Comment: uterine Hx Diabetes: Father, Mother, Brother/Sister Hx Heart Disease: Father Hx Stroke: Mother Physical Exam - General General Appearance: Alert, Oriented x3, Cooperative, Moderate distress ( Moderate respiratory distress, decreased BS bilaterally, increased respiratory rate.) Limitations: No limitations - Head Head exam: Atraumatic, Normocephalic, Normal inspection Head exam detail: negative: Abrasion, Contusion, Carballo's sign, General tenderness, Hematoma, Laceration - Eye Eye exam: Normal appearance. negative: Conjunctival injection, Periorbital swelling, Periorbital tenderness, Scleral icterus - ENT Ear exam: negative: Auricular hematoma, Auricular trauma Nasal Exam: negative: Active bleeding, Discharge, Dried blood, Foreign body Mouth exam: negative: Drooling, Laceration, Tongue elevation - Neck Neck exam: Normal inspection. negative: Meningismus, Tenderness - Respiratory Respiratory exam: Decreased breath sounds, Prolonged expiratory, Respiratory distress, Wheezes. negative: Rhonchi, Stridor - Cardiovascular Cardiovascular Exam: Normal rhythm, Normal heart sounds, Tachycardia - GI/Abdominal GI/Abdominal exam: Soft. negative: Rebound, Rigid, Tenderness - Rectal Rectal exam: Deferred - exam: Deferred - Extremities Extremities exam: Normal inspection. negative: Pedal edema, Tenderness - Back Back exam: Denies: CVA tenderness (R), CVA tenderness (L) - Neurological Neurological exam: Alert, Normal gait, Oriented X3 - Psychiatric Psychiatric exam: Normal affect, Normal mood - Skin Skin exam: Normal color. negative: Abrasion Type of lesion: negative: abrasion Course Vital Signs 08/10/17 08/10/17 18:07 18:20 Temperature 98.5 F Pulse Rate 98 H 96 H Respiratory 28 H 24 Rate Blood Pressure 187/82 Pulse Ox 92 L 95 - Reevaluation(s) Reevaluation #1: 08/10/17 19:01 Patient was reassessed following 2nd duoneb, symptoms are greatly improved. Reevaluation #2: 08/10/17 19:17 AB.35/66.5/39/66.9 Findings are c/w hypoxia. Will monitor closely. Reevaluation #3: 08/10/17 19:59 Labs reviewed, WBC 13.2, labs are otherwise grossly unremarkable for an acute process. CXR: Clearing previous RLL infiltrate. Case was discussed with Dr. Christianson, feels the patient should be transferred back to [facility]. Reevaluation #4: 08/10/17 20:21 Case was discussed with Dr. Cavanaugh, will accept transfer at this time. Medical Decision Making - Lab Data Result diagrams: 08/10/17 18:17 08/10/17 18:17 Disposition Disposition: Transfer Clinical Impression: Hypoxia COPD (chronic obstructive pulmonary disease) Qualifiers: COPD type: unspecified COPD Qualified Code(s): J44.9 - Chronic obstructive pulmonary disease, unspecified Disposition: Acute Care Hospital Transfer Transfer To: [facility] Reason For Transfer: Hypoxia, COPD exacerbation, recent respiratory failure Accepting Physician: Mao Time Discussed w/Accepting Physician: 20:06 Condition: (2) Stable Forms: Patient Portal Access Time of Disposition: 20:06 Quality - Quality Measures Quality Measures: N/A - Blood Pressure Screening Does Patient Have Any of the Following: Active Dx of HTN Blood Pressure Classification: Pre-Hypertensive BP Reading Systolic Measurement: 187 Diastolic Measurement: 82 Screening for High Blood Pressure: Patient Exclusion, Hx of HTN [G9744]
[2017-08-10] MEDS ORDERED: ALBUTEROL SULFATE (0.083%) 2.5 MG/3 ML NEB INH SCH (18:30)
[2017-08-10 19:09] LABS: ARTERIAL BLOOD GAS BASE EXCESS 8.2 mmol/L (-2 - 3); ARTERIAL BLOOD GAS HCO3 35.7 mmol/L (18-23); ARTERIAL BLOOD GAS pH 7.35 (7.35-7.45); CARBOXYHEMOGLOBIN 1.2 % (0-1.5); METHEMOGLOBIN 0.2 % (0.0-1.5); TOTAL HEMOGLOBIN 12.6 g/dl (11.6-16)
[2017-08-10 19:11] LABS: ARTERIAL BLOOD GAS PCO2 66.5 mmHg (35-48)
[2017-08-10 19:12] LABS: ARTERIAL BLD GAS O2 SATURATION 66.9 % (95-98)
[2017-08-10 19:19] LABS: HEMATOCRIT 47.4 % (35.0-47.0); HEMOGLOBIN 14.4 gm/dl (11.6-16.0); MEAN CELL VOLUME 86.2 fl (81-97); MEAN CORPUSCULAR HGB CONC 30.4 g/dl (32-36); MEAN PLATELET VOLUME 11.4 fl (7.4-10.4); PLATELET COUNT 396 K/uL (130-400); RED CELL DISTRIBUTION WIDTH 15.8 % (11.5-14.5); WHITE BLOOD COUNT W/O DIFF 13.2 K/uL (4.2-12.2)
[2017-08-10 19:20] LABS: MEAN CORPUSCULAR HEMOGLOBIN 26.1 pg (27-33)
[2017-08-10 19:26] LABS: PLATELET ESTIMATE NORMAL (NORMAL)
[2017-08-10 19:31] LABS: BLOOD UREA NITROGEN 15 mg/dL (8-23); CREATININE 0.4 mg/dL (0.5-0.9); EST GLOMERULAR FILTRATION RATE > 60 mL/min; TOTAL PROTEIN 7.5 g/dL (6.6-8.7)
[2017-08-10 19:33] LABS: GLUCOSE,RANDOM 113 mg/dL (74-109)
[2017-08-10 19:36] LABS: ALBUMIN 3.8 g/dL (4.0-5.0); ALKALINE PHOSPHATASE 65 U/L (35-104); ALT/SGPT 29 U/L (<33); AST/SGOT 27 U/L (10.0-35.0)
--- NOTE | 2017-08-11 14:50 | RADIOLOGY REPORT ---
EXAM: CHEST, TWO VIEWS HISTORY: DIFFICULTY IN BREATHING AND COUGH. TECHNIQUE: PA and lateral views of the chest were obtained. Comparison: Portable chest 07/30/17. FINDINGS: The heart size is within normal limits. There has been some clearing of the right base since the prior study. The lungs again appear hyperinflated consistent with advanced underlying COPD and there is still some minor bibasilar streaky atelectasis or infiltrate present. No definite pleural effusion or pneumothorax evident. Calcification of the aorta. IMPRESSION: 1. FINDINGS CONSISTENT WITH ADVANCED UNDERLYING COPD. 2. SOME CLEARING OF THE RIGHT BASE SINCE 07/30/17 WITH SOME MILD RESIDUAL BIBASILAR STREAKY ATELECTASIS OR INFILTRATE STILL PRESENT. JOB NUMBER: [id number] [facility]
== END 2017-08-10 21:55 | disposition short-term general hospital (02) ==
LOC: ER 18:04
DX: J44.1 Chronic obstructive pulmonary disease with (acute) exacerbation (principal); R09.02 Hypoxemia; I10 Essential (primary) hypertension; Z87.01 Personal history of pneumonia (recurrent); Z99.81 Dependence on supplemental oxygen; Z87.891 Personal history of nicotine dependence
CPT/HCPCS: 36600; 71046; 80053; 82375; 82803; 85027; 94640; 96374; 99285

== ENCOUNTER 2018-08-21 13:54 | Emergency (ER) | payer MEDICARE, BC ==
[2018-08-21] MEDS ORDERED: METHYLPREDNISOLONE PF 125MG/VIAL IVP ONE (14:19)
[2018-08-21] MEDS ORDERED: IPRATROPIUM/ALBUTEROL (0.5MG/3MG) NEB INH ONE (14:19)
[2018-08-21 14:25] LABS: HEMATOCRIT 39.3 % (35.0-47.0); HEMOGLOBIN 11.9 gm/dl (11.6-16.0); MEAN CELL VOLUME 77.5 fl (81-97); MEAN CORPUSCULAR HEMOGLOBIN 23.5 pg (27-33); MEAN CORPUSCULAR HGB CONC 30.3 g/dl (32-36); MEAN PLATELET VOLUME 10.6 fl (7.4-10.4); PLATELET COUNT 430 K/uL (130-400); RED BLOOD COUNT 5.07 M/uL (3.80-5.40); WHITE BLOOD COUNT W/O DIFF 5.2 K/uL (4.2-12.2)
[2018-08-21 14:35] LABS: ARTERIAL BLD GAS O2 SATURATION 93.5 % (95-98); ARTERIAL BLOOD GAS BASE EXCESS 2.8 mmol/L (-2 - 3); ARTERIAL BLOOD GAS HCO3 28.6 mmol/L (18-23); ARTERIAL BLOOD GAS PCO2 52.2 mmHg (35-48); ARTERIAL BLOOD GAS pH 7.36 (7.35-7.45); CARBOXYHEMOGLOBIN 1.6 % (0-1.5); O2 HEMOGLOBIN 92.5 % vol (94-99); TOTAL HEMOGLOBIN 10.9 g/dl (11.6-16)
[2018-08-21 14:41] LABS: BLOOD UREA NITROGEN 10 mg/dL (8-23)
[2018-08-21 14:42] LABS: CREATININE 0.2 mg/dL (0.5-0.9); EST GLOMERULAR FILTRATION RATE > 60 mL/min; TOTAL PROTEIN 7.1 g/dL (6.6-8.7)
[2018-08-21 14:43] LABS: METHEMOGLOBIN -0.5 % (0.0-1.5)
[2018-08-21 14:44] LABS: GLUCOSE,RANDOM 119 mg/dL (74-109)
[2018-08-21 14:44] LABS: ALLEN TEST PASS
[2018-08-21] MEDS ORDERED: ALBUTEROL SULFATE 0.5% 5 MG/ML BTL 20ML INH SCH ×2 (14:45)
[2018-08-21 14:47] LABS: ALBUMIN 3.5 g/dL (4.0-5.0); ALKALINE PHOSPHATASE 78 U/L (35-104); ALT/SGPT 34 U/L (<33); AST/SGOT 37 U/L (10.0-35.0)
[2018-08-21] MEDS ORDERED: ALBUTEROL (0.5% CONCENTRATED) 2.5 MG/0.5 ML VIAL.NEB INH ONE (15:30)
[2018-08-21] MEDS ORDERED: 0.9% SODIUM CHLORIDE 250ML BAG IV ONE (15:52)
[2018-08-21 15:55] LABS: INFLUENZA A NEGATIVE (NEGATIVE); INFLUENZA B NEGATIVE (NEGATIVE)
[2018-08-21] MEDS ORDERED: CEFTRIAXONE 1GM/50ML BAG 1 GM/50 ML BAG IVPB ONE (15:55)
--- NOTE | 2018-08-21 16:25 | Emergency Department Record ---
History of Present Illness - General Chief Complaint: Shortness of breath Stated Complaint: GUI Time Seen by Provider: 08/21/18 14:14 Source: Patient, Family, EMS Mode of Arrival: EMS Limitations: No limitations - History of Present Illness Initial Comments: pt brought in by ems for severe respiratory distress with sats in the 70s. she has been feeling bad since yest w increasing sob, chills, cough. she has been using her home O2 more frequently. MD Complaint: Shortness of breath Onset/Timin -: Days(s) Consistency: Getting worse Improves With: Nothing Worsens With: Exertion, Lying flat Known History Of: COPD Associated Symptoms: Cough, Fever - Related Data Home Oxygen Therapy: Yes Home Oxygen Amount: 2 Liters Home Medications Medication Instructions Recorded Confirmed Last Taken Escitalopram Oxalate [Lexapro] 10 mg PO QHS 08/21/18 08/21/18 08/20/18 Previous Rx's Medication Instructions Recorded Albuterol Sulfate 0.083% [Neb] 3 ml NEB .EVERY 4-6 HOURS PRN #180 08/24/17 [Albuterol Sulfate] ml Aspirin Enteric-Coated [Ecotrin 81 mg PO DAILY tabec 08/24/17 (EC)] Allergies Allergy/AdvReac Type Severity Reaction Status Date / Time No Known Drug Allergies Allergy Verified 08/21/18 14:08 Travel Screening - Travel/Exposure Within Last 30 Days Have you traveled within the last 30 days?: No Review of Systems Reviewed: No additional complaints except as noted below Constitutional: Reports: As per HPI. Denies: Chills, Fever, Malaise, Night sweats, Weakness, Weight change Eyes: Reports: As per HPI. Denies: Eye discharge, Eye pain, Photophobia, Vision change ENT: Reports: As per HPI. Denies: Congestion, Dental pain, Ear pain, Epistaxis , Hearing loss, Throat pain Respiratory: Reports: As per HPI, Cough, Dyspnea. Denies: Hemoptysis, Stridor, Wheezes Cardiovascular: Reports: As per HPI. Denies: Arrhythmia, Chest pain, Dyspnea on exertion, Edema, Murmurs, Orthopnea, Palpitations, Paroxysmal nocturnal dyspnea, Rheumatic Fever, Syncope Endocrine: Reports: As per HPI. Denies: Fatigue, Heat or cold intolerance, Polydipsia, Polyuria Gastrointestinal: Reports: As per HPI. Denies: Abdominal pain, Constipation, Diarrhea, Hematemesis, Hematochezia, Melena, Nausea, Vomiting Genitourinary: Reports: As per HPI. Denies: Abnormal menses, Discharge, Dyspareunia, Dysuria, Frequency, Hematuria, Incontinence, Retention, Urgency Musculoskeletal: Reports: As per HPI. Denies: Arthralgia, Back pain, Gout, Joint swelling, Myalgia, Neck pain Skin: Reports: As per HPI. Denies: Bruising, Change in color, Change in hair/ nails, Lesions, Pruritus, Rash Neurological: Reports: As per HPI. Denies: Abnormal gait, Confusion, Headache, Numbness, Paresthesias, Seizure, Tingling, Tremors, Vertigo, Weakness Psychiatric: Reports: As per HPI. Denies: Anxiety, Auditory hallucinations, Depression, Homicidal thoughts, Suicidal thoughts, Visual hallucinations Hematological/Lymphatic: Reports: As per HPI. Denies: Anemia, Blood Clots, Easy bleeding, Easy bruising, Swollen glands Past Medical History - SOCIAL HISTORY Smoking Status: Former smoker Alcohol Use: None Drug Use: None - RESPIRATORY Hx Respiratory Disorders: Yes Hx Bronchitis: Yes Hx COPD: Yes Hx Pneumonia: Yes Comment:: November 2015-GUI collapsed, intubated x 24hrs. - CARDIOVASCULAR Hx Cardio Disorders: Yes Hx Abnormal EKG: Yes Hx Irregular Heartbeat: Yes Hx Coronary Artery Disease: Yes Comment:: carotid artery stent, murmur - NEURO Hx Neuro Disorders: No Hx Seizures: No - GI Hx GI Disorders: Yes Hx Obstructive Bowel: Yes (d/t adhesions) - Hx Genitourinary Disorders: No - ENDOCRINE Hx Endocrine Disorders: No Hx Diabetes: (N/A) - MUSCULOSKELETAL Hx Musculoskeletal Disorders: Yes Hx Arthritis: Yes Hx Gout: Yes (x 1) Hx Osteoporosis: Yes - PSYCH Hx Psych Problems: Yes Hx Anxiety: Yes - HEMATOLOGY/ONCOLOGY Hx Hematology/Oncology Disorders: No Family Medical History Any Significant Family History?: Yes Hx Cancer: Mother, Brother/Sister *Cancer Comment: uterine Hx Diabetes: Father, Mother, Brother/Sister Hx Heart Disease: Father Hx Stroke: Mother Physical Exam - General General Appearance: Alert, Oriented x3, Cooperative, Moderate distress - Head Head exam: Normal inspection - Eye Eye exam: Normal appearance, PERRL, EOMI Pupils: Normal accommodation - ENT ENT exam: Normal exam, Mucous membranes moist, Normal external ear exam, Normal orophraynx Ear exam: Normal external inspection. negative: External canal tenderness Nasal Exam: Normal inspection. negative: Discharge, Sinus tenderness Mouth exam: Normal external inspection, Tongue normal Teeth exam: Normal inspection. negative: Dental caries Throat exam: Normal inspection. negative: Tonsillar erythema, Tonsillar exudate - Neck Neck exam: Normal inspection, Full ROM. negative: Tenderness - Respiratory Respiratory exam: Normal lung sounds bilaterally. negative: Respiratory distress - Cardiovascular Cardiovascular Exam: Regular rate, Normal rhythm, Normal heart sounds - GI/Abdominal GI/Abdominal exam: Soft, Normal bowel sounds. negative: Tenderness - Rectal Rectal exam: Deferred - exam: Deferred - Extremities Extremities exam: Normal inspection, Full ROM, Normal capillary refill. negative: Tenderness - Back Back exam: Reports: Normal inspection, Full ROM. Denies: Muscle spasm, Rash noted, Tenderness - Neurological Neurological exam: Alert, CN II-XII intact, Normal gait, Oriented X3 - Psychiatric Psychiatric exam: Normal affect, Normal mood - Skin Skin exam: Dry, Intact, Normal color, Warm Course Vital Signs 08/21/18 08/21/18 08/21/18 13:56 14:11 15:35 Temperature 98.8 F 99.1 F Pulse Rate 122 H Pulse Rate [ 131 H 143 H Application Operations Engineer ] Respiratory 28 H 24 24 Rate Blood Pressure 134/92 Blood Pressure 134/89 126/73 [Right Arm] Pulse Ox 83 L 96 92 L - Reevaluation(s) Reevaluation #1: 08/21/18 16:34 pt came in in severe respiratory distress. treaments and steroids given. cxr shows pneumonia Medical Decision Making - Lab Data Result diagrams: 08/21/18 14:10 08/21/18 14:10 Lab Results 08/21/18 08/21/18 08/21/18 Range/Units 14:10 14:10 14:10 WBC 5.2 (4.2-12.2) K/uL RBC 5.07 (3.80-5.40) M/uL Hgb 11.9 (11.6-16.0) gm/dl Hct 39.3 (35.0-47.0) % MCV 77.5 L (81-97) fl MCH 23.5 L (27-33) pg MCHC 30.3 L (32-36) g/dl RDW 16.0 H (11.5-14.5) % Plt Count 430 H (130-400) K/uL MPV 10.6 H (7.4-10.4) fl Neutrophils % 67.0 (47-80) % Eosinophils % Not Reportable Basophils % Not Reportable Lymphocytes 19.0 (16-45) % Monocytes 13.0 H (0-9) % Eosinophil Count 1.0 (0-6) % Puncture Site pCO2 (35-48) mmHg pO2 (83-108) mmHg HCO3 (18-23) mmol/L Oxyhemoglobin (94-99) % vol ABG pH (7.35-7.45) ABG O2 Saturation (95-98) % ABG Base Excess (-2 - 3) mmol/L Thang Test Carboxyhemoglobin (0-1.5) % Methemoglobin (0.0-1.5) % Total Hemoglobin (11.6-16) g/dl Actual Respiration Rate (10-18) /MIN FiO2 % Sodium 139 (136-145) mmol/L Potassium 4.2 (3.4-4.5) mmol/L Chloride 100 (98-107) mmol/L Carbon Dioxide 27.0 (22-29) mmol/L Anion Gap 12.0 (7-16) BUN 10 (8-23) mg/dL Creatinine 0.2 L (0.5-0.9) mg/dL Estimated GFR > 60 mL/min Random Glucose 119 H (74-109) mg/dL Calcium 9.4 (8.8-10.2) mg/dL Total Bilirubin 0.30 (0.2-1.0) mg/dL AST 37 H (10.0-35.0) U/L ALT 34 H (<33) U/L Alkaline Phosphatase 78 (35-104) U/L NT-Pro-B Natriuret Pep 1151.00 H (<125) pg/mL Total Protein 7.1 (6.6-8.7) g/dL Albumin 3.5 L (4.0-5.0) g/dL Globulin 3.6 (1.4-4.8) gm/dL Albumin/Globulin Ratio 1.0 L (1.1-1.8) Influenza Type A Ag (NEGATIVE) Influenza Type B Ag (NEGATIVE) 04/02/19 04/02/19 Range/Units 14:25 15:30 WBC (4.2-12.2) K/uL RBC (3.80-5.40) M/uL Hgb (11.6-16.0) gm/dl Hct (35.0-47.0) % MCV (81-97) fl MCH (27-33) pg MCHC (32-36) g/dl RDW (11.5-14.5) % Plt Count (130-400) K/uL MPV (7.4-10.4) fl Neutrophils % (47-80) % Eosinophils % Basophils % Lymphocytes (16-45) % Monocytes (0-9) % Eosinophil Count (0-6) % Puncture Site Right wrist pCO2 52.2 H (35-48) mmHg pO2 68.0 L (83-108) mmHg HCO3 28.6 H (18-23) mmol/L Oxyhemoglobin 92.5 L (94-99) % vol ABG pH 7.36 (7.35-7.45) ABG O2 Saturation 93.5 L (95-98) % ABG Base Excess 2.8 (-2 - 3) mmol/L Thang Test Pass Carboxyhemoglobin 1.6 H (0-1.5) % Methemoglobin -0.5 L (0.0-1.5) % Total Hemoglobin 10.9 L (11.6-16) g/dl Actual Respiration Rate 30.0 H (10-18) /MIN FiO2 % Sodium (136-145) mmol/L Potassium (3.4-4.5) mmol/L Chloride (98-107) mmol/L Carbon Dioxide (22-29) mmol/L Anion Gap (7-16) BUN (8-23) mg/dL Creatinine (0.5-0.9) mg/dL Estimated GFR mL/min Random Glucose (74-109) mg/dL Calcium (8.8-10.2) mg/dL Total Bilirubin (0.2-1.0) mg/dL AST (10.0-35.0) U/L ALT (<33) U/L Alkaline Phosphatase (35-104) U/L NT-Pro-B Natriuret Pep (<125) pg/mL Total Protein (6.6-8.7) g/dL Albumin (4.0-5.0) g/dL Globulin (1.4-4.8) gm/dL Albumin/Globulin Ratio (1.1-1.8) Influenza Type A Ag Negative (NEGATIVE) Influenza Type B Ag Negative (NEGATIVE) Critical Care Time Critical Care Time: Yes Total Critical Care Time: 30 Disposition Disposition: Transfer Clinical Impression: Pneumonia Qualifiers: Pneumonia type: due to unspecified organism Laterality: bilateral Lung location : lower lobe of lung Qualified Code(s): J18.1 - Lobar pneumonia, unspecified organism Disposition: [facility] For Transfer: needs alarm technician Accepting Physician: dr walden Time Discussed w/Accepting Physician: 17:26 Quality - Quality Measures Quality Measures: N/A - Blood Pressure Screening Does Patient Have Any of the Following: No Blood Pressure Classification: Hypertensive Reading Systolic Measurement: 134 Diastolic Measurement: 92 Screening for High Blood Pressure: < First Hypertensive BP, F/U Documented > [ G8950] First Hypertensive Follow-up Interventions: Follow-up with rescreen GT 1 day and LT 4 weeks.
[2018-08-21] MEDS ORDERED: LEVALBUTEROL HCL 1.25 MG/3 ML INH ONE (17:58)
--- NOTE | 2018-08-23 10:40 | RADIOLOGY REPORT ---
EXAM: FRONTAL CHEST HISTORY: DIFFICULTY BREATHING. TECHNIQUE: A single frontal view of the chest was obtained. Comparison: Two view chest radiograph 08/10/17. FINDINGS: The cardiac silhouette is within normal limits. The lungs are hyperinflated. Increased patchy opacities in both lung bases. No significant pleural fluid collection. No visible pneumothorax. IMPRESSION: 1. INCREASING BIBASILAR PULMONARY OPACITIES, MAY REPRESENT ATELECTASIS OR PNEUMONIA. 2. PULMONARY HYPERINFLATION SUGGESTING COPD. JOB NUMBER: [id number] [facility]
== END 2018-08-21 19:11 | disposition short-term general hospital (02) ==
LOC: ER 13:54
DX: J18.1 Lobar pneumonia, unspecified organism (principal); J44.9 Chronic obstructive pulmonary disease, unspecified; Z99.81 Dependence on supplemental oxygen; Z87.891 Personal history of nicotine dependence
CPT/HCPCS: 36600; 71045; 80053; 82375; 82803; 83880; 85027; 87400; 93005; 93010; 94640; 96365; 96366; 96375; 99285; J0696; J2930

== ENCOUNTER 2018-08-29 12:08 | Inpatient (IN) | payer MEDICARE, BC ==
--- NOTE | 2018-08-29 15:51 | Rehab Evaluation ---
Patient Information - Patient Information Diagnosis: deconditioning Ordered Treatment: OT Evaluate and Treat Status: Initial Evaluation Surgery: No Past Medical/Surgical Hx: PAST MEDICAL/SURGICAL HISTORY Past Surgical History Hysterectomy, , Carotid artery with stent, colon resection (d/t adhesions), heart cath 2018 PMH - Respiratory Hx Respiratory Disorders Yes Hx Bronchitis Yes Hx Chronic Obstructive Yes Pulmonary Disease (COPD) Hx Pneumonia Yes Hx of SOB Yes Comment: November 2015-GUI collapsed, intubated x 24hrs. PMH - Cardiovascular Hx Cardiovascular Disorders Yes Hx Abnormal EKG Yes Hx Irregular Heartbeat Yes Hx Coronary Artery Disease Yes Hx Heart Murmur Yes: no problems Comment: carotid artery stent, murmur PMH - Neuro Hx Neurological Disorders No Hx Seizures No Comment: Rt Sided carotid stent PMH - GI Hx Gastrointestinal Disorders Yes Hx Obstructive Bowel Yes: d/t adhesions PMH - Hx Genitourinary Disorders No PMH - Endocrine Hx Endocrine Disorders No Hx Diabetes N/A Hx Thyroid Disease Yes: overactive thyroid PMH - Musculoskeletal Hx Musculoskeletal Disorders Yes Hx Arthritis Yes Hx Gout Yes: x 1 Hx Osteoporosis Yes PMH - Psych Hx Psychiatric Problems Yes Hx Anxiety Yes Hx Depression Yes PMH - Hematology/Oncology Hx Hematology/Oncology No Disorders Premorbid Status: Detail (Pt lives with son in a 1 story house with basement. She has 3 steps at the entrance onto a deck and 1 step into the kitchen with padmini railings. She has a tub/shower combination with shower seat and hand held shower, no grab bars and an elevated toilet, no grab bars. Pt and son shared home mgmt and meal prep, son was responsible for laundry. She ambulated without an assistive device but owns a 4 wheeled walker. She uses 1 1/2 liters of oxygen at night.) Social History: Detail (Pt has a supportive family.) Precautions: [place], [place], Other (Using 1 1/2 liters of oxygen) - Time With Patient Total Time Spent With Patient (Min): 35 Treatment Procedures: Detail (OT eval low complexity) Subjective Information - Subjective Information Per Patient Objective Data - Pain Pain Present: No - Mental Status Patient Orientation: Oriented x3 - Visual Perception Appears within normal limits for therapeutic activities - ROM Not within normal limits (Right shoulder flexion to 45 degrees from injury in December,, remaining padmini UE AROM WNL) - Strength/Tone Not within normal limits (Right shoulder flexion 2-/5, left shoulder flexion 4-/ 5, padmini elbow flexion 4/5, padmini elbow extension 4/5, padmini marketing sales representative 4/5) - Coordination Appears within normal limits for therapeutic activities - Transfers Needs Assist (Ind with sit to stand from recliner, mod assist for sit to stand from standard toilet height.) - Balance Balance Sitting: Good Balance Standing: Good - Sensation Intact - Gait Detail (Pt ambulated several feet in room with 2 wheeled walker using 1 1/2 liters of oxygen and rest breaks due to shortness of breath.) - ADL's/IADL's Detail (Pt has not attempted self care tasks yet but she was able to complete toileting including pants management and toileting hygiene Indly with assist for sit to stand from toilet height.) Therapy Assessment - Therapy Assessment Detail (Pt presents with significant shortness of breath with activity as well as decreased Ind with self cares and functional mobility.) Problem List - Problem List Occupational Therapy Problem List: Detail (1. Decreased Ind with total body dressing. 2. Decreased Ind with showering in sitting. 3. Decreased activity tolerance needed for safe and Ind self cares and IADLs.) Goals - Goals Occupational Therapy Goals: 1. Pt will be Ind with total body dressing using energy conservation techniques. 2. Pt will be Ind with showering in sitting using energy conservation techniques. 3. Pt will demonstrate improved endurance to allow safe and Ind self cares. Prognosis - Prognosis Good Plan - Plan Occupational Therapy Plan: OT 2-4 days per week to address goals and problem list. Thank you for this referral.
--- NOTE | 2018-08-29 16:03 | Rehab Evaluation ---
Patient Information - Patient Information Diagnosis: deconditioning Ordered Treatment: PT Evaluate and Treat Status: Initial Evaluation Surgery: No Past Medical/Surgical Hx: PAST MEDICAL/SURGICAL HISTORY Past Surgical History Hysterectomy, , Carotid artery with stent, colon resection (d/t adhesions), heart cath 2018 PMH - Respiratory Hx Respiratory Disorders Yes Hx Bronchitis Yes Hx Chronic Obstructive Yes Pulmonary Disease (COPD) Hx Pneumonia Yes Hx of SOB Yes Comment: November 2015-GUI collapsed, intubated x 24hrs. PMH - Cardiovascular Hx Cardiovascular Disorders Yes Hx Abnormal EKG Yes Hx Irregular Heartbeat Yes Hx Coronary Artery Disease Yes Hx Heart Murmur Yes: no problems Comment: carotid artery stent, murmur PMH - Neuro Hx Neurological Disorders No Hx Seizures No Comment: Rt Sided carotid stent PMH - GI Hx Gastrointestinal Disorders Yes Hx Obstructive Bowel Yes: d/t adhesions PMH - Hx Genitourinary Disorders No PMH - Endocrine Hx Endocrine Disorders No Hx Diabetes N/A Hx Thyroid Disease Yes: overactive thyroid PMH - Musculoskeletal Hx Musculoskeletal Disorders Yes Hx Arthritis Yes Hx Gout Yes: x 1 Hx Osteoporosis Yes PMH - Psych Hx Psychiatric Problems Yes Hx Anxiety Yes Hx Depression Yes PMH - Hematology/Oncology Hx Hematology/Oncology No Disorders Premorbid Status: Detail (Pt lives with son in a 1 story house with basement. She has 3 steps at the entrance onto a deck and 1 step into the kitchen with padmini railings. She has a tub/shower combination with shower seat and hand held shower, no grab bars and an elevated toilet, no grab bars. Pt and son shared home mgmt and meal prep, son was responsible for laundry. She ambulated without an assistive device but owns a 4 wheeled walker. She uses 1 1/2 liters of oxygen at night.) Social History: Detail (Pt has a supportive family.) Precautions: Elk, Fall, Other (Using 1 1/2 liters of oxygen) - Time With Patient Total Time Spent With Patient (Min): 30 Treatment Procedures: Detail (Initial Evaluation) Subjective Information - Subjective Information Per Patient (The patient had no complaints of pain but did complain of LE "aching" due to increased LE edema.) Objective Data - Mental Status Patient Orientation: Oriented x3 - Visual Perception Appears within normal limits for therapeutic activities - ROM Within normal limits (LE AROM was WNL.) - Strength/Tone Not within normal limits (R LE strength: hip flexors 4-/5, hip abductors/ adductors 4/5, ankle musculature 4/5, knee flexors 4-/5, knee extensors 4-/5, L LE strength is generally 4/5.) - Bed Mobility Needs Assist (Bed mobility was not tested since patient was up in chair.) - Transfers Independent (Independent sit to stand from recliner. Moderate PA of one with sit to stand from toilet. The patient was independent with stand to sit from all surfaces.) - Balance Balance Sitting: Good Balance Standing: Fair (The patient required support of walker to stand. The patient's balance was not tested using objective balance test.) - Gait Detail (The patient ambulated with two wheeled walker 20 feet x 1 with 1 1/2 L of O2 and to and from bathroom 7 feet x 2. O2 sat after ambulated was 92. The patient required frequent rest period throughout ambulation. The patient was short of breath with ambulation but was able to complete pursed lip breathing.) Therapy Assessment - Therapy Assessment Detail (The patient has decreased ability to complete prolonged physical activity and required assistance with sit to stand from lower surface. The patient ambulates limited distances. Feel the patient is a good rehab candidate to return to previous functional level. Due to patient's stable condition PT complexity is rated as low.) Problem List - Problem List Physical Therapy Problem List: Detail (1) Shortness of breath with ambulation/ all physical activity 2) Assistance with sit to stand transfer from low surface 3) Decreased LE strength R LE greater then L. 4) Decreased ability to complete physical activity) Goals - Goals Physical Therapy Goals: 1) Assess the patient's balance using objective balance testing. 2)Assess the patient's bed mobility. 3) The patient will ambulate with appropriate assistive device independently distances of 100 feet plus with minimal shortness of breath. 4) The patient will be independent with all transfers and bed mobility. 5)The patient will tolerate 20 to 30 minutes of physical activity with one to two rest periods. 6) Increase LE strength 1/3 muscle grade to improve stability of gait pattern. Prognosis - Prognosis Good Plan - Plan Physical Therapy Plan: PT 1 to 2 times a day for gait training, bed mobility, transfer training, LE strengthening and muscular endurance exercises.
--- NOTE | 2018-08-29 17:15 | History & Physical ---
History of Present Illness - Date of Service Date of Service for History & Physical: 08/31/18 - History of Present Illness Admitting Diagnosis: Deconditioning r/t PNA History of Present Illness: 67 yo female presents for swing bed rehab s/p NSTEMI, resp failure, and pneumonia. Pt has significant PMH of COPD (emphysema), resp failure, anxiety, hyperlipidemia, and poor calorie intake. 08/21/18 Pt presented to [facility] ER for SOB, sats 70% with severe resp distress, reporting onset of symptoms 1 day previous to ER visit. Pt given steroids, neb treatments. CXR showed padmini lower lob pneumonia Pt was transferred to [facility]. 08/21/18 [facility] notes reviewed, pt was paced on bipap for several days, labs revealed NSTEMI, heart cath completed but no STENTs required. Continued Zosyn, neb, steroids through inpt stay and having PTOT work with pt. Pt consulting pulm and cardiology during inpt stay, started on Lasix r/t new onset water retention abd and padmini legs. Pt transitioned to 2L NC, up with some STRICKLAND but functional. D/C to [facility] Swing Bed. 08/29/18 Pt admitted for physical deconditioning r/t pneumonia. Pt in no acute distress, able to talk in complete sentences. Tolerating 2L NC with ADLs and other activities. Pt alert and oriented, remembers most/all of inpt stay. Son at bedside and was unaware pt had NSTEMI when inpt. Lungs diminished throughout but no wheezing noted, heart RRR. DP and PT +3, trace edema lower legs. Abdomen appears larger than pt baseline, concerns for continued water retentions. BS x4. Pt denies any pain, expresses desire to increase strength, healthy weight gain, and decrease STRICKLAND. Skin pink, warm, and dry. POC- Pt to continue PT/OT, improve activity tolerance, continue to diurese, and increase to high protein diet and regain weight loss to return to baseline 100lbs. Pt was 93lbs with onset of PNA. Pt will also complete here cardiology follow up, preventative health mammogram and lower ext doppler ordered from PCP. Follow up PCP 1 week after d/c from swing bed. PCP MILANA Reza Specialist Elbert (pulm) Review of Systems Constitutional: Reports: As per HPI. Denies: Chills, Fever, Malaise, Night sweats, Weakness, Weight change Eyes: Reports: As per HPI. Denies: Eye discharge, Eye pain, Photophobia, Vision change ENT: Reports: As per HPI. Denies: Congestion, Dental pain, Ear pain, Epistaxis , Hearing loss, Throat pain Respiratory: Reports: Dyspnea Cardiovascular: Reports: As per HPI, Dyspnea on exertion. Denies: Arrhythmia, Chest pain, Edema, Murmurs, Orthopnea, Palpitations, Paroxysmal nocturnal dyspnea, Rheumatic Fever, Syncope Endocrine: Reports: As per HPI. Denies: Fatigue, Heat or cold intolerance, Polydipsia, Polyuria Gastrointestinal: Reports: As per HPI. Denies: Abdominal pain, Constipation, Diarrhea, Hematemesis, Hematochezia, Melena, Nausea, Vomiting Genitourinary: Reports: As per HPI. Denies: Abnormal menses, Discharge, Dyspareunia, Dysuria, Frequency, Hematuria, Incontinence, Retention, Urgency Musculoskeletal: Reports: As per HPI. Denies: Arthralgia, Back pain, Gout, Joint swelling, Myalgia, Neck pain Skin: Reports: Bruising Neurological: Reports: As per HPI. Denies: Abnormal gait, Confusion, Headache, Numbness, Paresthesias, Seizure, Tingling, Tremors, Vertigo, Weakness Psychiatric: Reports: Anxiety. Denies: Suicidal thoughts, Visual hallucinations Hematological/Lymphatic: Reports: As per HPI. Denies: Anemia, Blood Clots, Easy bleeding, Easy bruising, Swollen glands Past Medical History - SOCIAL HISTORY Smoking Status: Former smoker - RESPIRATORY Hx Respiratory Disorders: Yes Hx Bronchitis: Yes Hx COPD: Yes Hx Pneumonia: Yes Comment:: November 2015-GUI collapsed, intubated x 24hrs. - CARDIOVASCULAR Hx Cardio Disorders: Yes Hx Abnormal EKG: Yes Hx Irregular Heartbeat: Yes Comment:: carotid artery stent, murmur - NEURO Hx Neuro Disorders: No Hx Seizures: No - GI Hx GI Disorders: Yes Hx Obstructive Bowel: Yes (d/t adhesions) - Hx Genitourinary Disorders: No - ENDOCRINE Hx Endocrine Disorders: No Hx Diabetes: (N/A) - MUSCULOSKELETAL Hx Musculoskeletal Disorders: Yes Hx Arthritis: Yes Hx Gout: Yes (x 1) Hx Osteoporosis: Yes - PSYCH Hx Psych Problems: Yes Hx Anxiety: Yes - HEMATOLOGY/ONCOLOGY Hx Hematology/Oncology Disorders: No Family Medical History Any Significant Family History?: Yes Hx Cancer: Mother, Brother/Sister *Cancer Comment: uterine Hx Diabetes: Father, Mother, Brother/Sister Hx Heart Disease: Father Hx Stroke: Mother H&P Meds/Allergies - Allergies Allergies: Allergies Allergy/AdvReac Type Severity Reaction Status Date / Time No Known Drug Allergies Allergy Verified 08/21/18 14:08 - Home Medications Home Medications Medication Instructions Recorded Confirmed Last Taken Carvedilol [Coreg] 12.5 mg PO BID 08/29/18 08/29/18 Unknown Previous Rx's Medication Instructions Recorded Albuterol Sulfate 0.083% [Neb] 3 ml NEB .EVERY 4-6 HOURS PRN #180 08/24/17 [Albuterol Sulfate] ml Aspirin Enteric-Coated [Ecotrin 81 mg PO DAILY tabec 08/24/17 (EC)] - Active Medications Active Medications: Current Medications Albuterol Sulfate (Albuterol Sulfate) 2.5 mg INH Q4H PRN PRN Reason: SHORTNESS OF BREATH Aspirin (Ecotrin (Ec)) 81 mg PO DAILY [facility] Carvedilol (Coreg) 12.5 mg PO BID [facility] Ezetimibe (Zetia) 10 mg PO QHS [facility] Escitalopram Oxalate (Lexapro) 15 mg PO QHS [facility] Furosemide (Lasix) 20 mg PO DAILY [facility] Patient Own Med: (Raloxifene 60 Mg) 1 each PO DAILY [facility] Patient Own Med: (Daliresp 500 Mcg) 1 each PO DAILY [facility] Prednisone (Prednisone 20mg) 40 mg PO DAILYWM [facility] Stop: 09/01/18 08:01 Prednisone (Prednisone 20mg) 20 mg PO DAILYWM [facility] Stop: 09/07/18 08:01 Prednisone (Prednisone 10mg) 10 mg PO DAILYWM [facility] Stop: 09/04/18 08:01 Prednisone (Prednisone 10mg) 10 mg PO DAILYWM [facility] Stop: 09/10/18 08:01 Simvastatin (Zocor) 80 mg PO QHS [facility] Physical Exam - Vital Signs Vital Signs: Vital Signs - Last 24 Hrs Temp Pulse Resp BP BP Pulse Ox 08/29/18 16:13 97.9 F 167/81 08/29/18 15:10 97.9 F 83 20 167/81 91 L - General General Appearance: Alert, Oriented x3, Cooperative, No acute distress Limitations: Physical limitation (weakness, STRICKLAND) - Head Head exam: Atraumatic Head exam detail: negative: Abrasion, Contusion - Eye Eye exam: Normal appearance Pupils: Normal accommodation - ENT ENT exam: Normal exam, Mucous membranes moist Ear exam: Normal external inspection Nasal Exam: Normal inspection Mouth exam: Normal external inspection - Neck Neck exam: Normal inspection - Respiratory Respiratory exam: Decreased breath sounds, Prolonged expiratory. negative: Wheezes - Cardiovascular Peripheral Pulses: 3+: Radial (R), Radial (L), Dorsalis Pedis (R), Dorsalis Pedis (L) - GI/Abdominal GI/Abdominal exam: Soft, Normal bowel sounds, Distended - Rectal Rectal exam: Deferred - exam: Deferred - Extremities Extremities exam: Normal inspection, Full ROM, Normal capillary refill, Pedal edema (trace) - Back Back exam: Reports: Normal inspection, Full ROM. Denies: CVA tenderness (R), CVA tenderness (L) - Neurological Neurological exam: Alert, CN II-XII intact, Normal gait, Oriented X3 - Psychiatric Psychiatric exam: Normal affect, Normal mood - Skin Skin exam: Dry, Normal color, Warm, Other (brusing padmini wrist (ABGs and heart cath access sites), no s/s infection) Results - Imaging and Cardiology Chest x-ray Status: Report reviewed ([facility] and [facility] reports reviewed) VTE H&P Assessment - Risk for VTE Risk for VTE: Yes Risk Level: Moderate Risk Assessment Date: 08/31/18 Risk Assessment Time: 08:46 VTE Orders Placed or Will Be Placed: Yes Plan - Detailed Diagnosis and Plan (1) Physical deconditioning Current Visit: Yes Status: Acute Base Code: R53.81 - OTHER MALAISE Comment : 08/29/18 -PT/OT ordered, continue to decrease STRICKLAND with ADLs -up in chair and hallway several times a day -independent for ADLs using O2 and 4-wheeled walker (2) Emphysema lung Current Visit: No Status: Chronic Qualifiers: Emphysema type: unspecified Qualified Code(s): J43.9 - Emphysema, unspecified Base Code: J43.9 - EMPHYSEMA, UNSPECIFIED Comment: 08/29/18 -prednisone taper dose -alb neb tx q4 PRN WA -daily maint inhalers -O2 continuous (3) DVT prophylaxis Current Visit: No Status: Acute Base Code: [id number] - Comment: 08/29/18 -lovenox 40 mg SQ daily (4) Full code status Current Visit: No Status: Acute Base Code: Z78.9 - OTHER SPECIFIED HEALTH STATUS Comment: 08/29/18- patient is full code.
[2018-08-29] MEDS: ESCITALOPRAM 10 MG TABLET PO SCH (21:09)
[2018-08-29] MEDS: EZETIMIBE 10 MG TABLET PO SCH (21:09)
[2018-08-29] MEDS: CARVEDILOL 12.5 MG TABLET PO SCH (21:10)
[2018-08-29] MEDS: SIMVASTATIN 20 MG TABLET PO SCH (21:10)
[2018-08-29] MEDS: ALBUTEROL SULFATE (0.083%) 2.5 MG/3 ML NEB INH PRN (21:23)
[2018-08-30] MEDS: ASPIRIN 81 MG TABEC PO SCH (10:16)
[2018-08-30] MEDS: CARVEDILOL 12.5 MG TABLET PO SCH ×2 (10:16→22:08)
[2018-08-30] MEDS: FUROSEMIDE 20 MG TABLET PO SCH (10:16)
[2018-08-30] MEDS: UMECLIDINIUM BROMIDE (INCRUSE) 62.5MCG IH SCH (10:21)
[2018-08-30] MEDS: BREO (FLUTICASONE/VILANTEROL) 200MCG/25MCG INHALER INH SCH (10:22)
[2018-08-30] MEDS: PREDNISONE 20 MG TAB PO SCH (10:42)
[2018-08-30] MEDS: DALIRESP 500 MCG PO SCH (10:43)
[2018-08-30] MEDS: PATIENT OWN MED: RALOXIFENE 60 MG PO SCH (10:44)
[2018-08-30] MEDS: PNEUM 23-VAL ADULT IM ONE ×2 (11:01→15:53)
[2018-08-30] MEDS: ALBUTEROL SULFATE (0.083%) 2.5 MG/3 ML NEB INH PRN (12:46)
--- NOTE | 2018-08-30 15:17 | Physical Therapy Tx Note ---
Physical Therapy Tx Note - Treatment Note Tolerated: Good Total Time Spent With Patient: 30 Physical Therapy Tx Note: Detail (Pt sitting up in recliner upon arrival, awake/ alert, cooperative for therapy. Sit<>stand transfer to 4WW independently, [facility] and return w/SBA and assist for O2 (about 134 feet). After brief rest period, she performed 10 reps each B of hip flexion, knee extension, hip adduction w/pillow, hip abduction w/manual resistance, isometric knee flexion, ankle pumps. She requested pictures of exercises to do on her own. She was left up in chair, reclined, w/call light and bedside table in reach.) Physical Therapy Problem List: Detail (1) Shortness of breath with ambulation/ all physical activity 2) Assistance with sit to stand transfer from low surface 3) Decreased LE strength R LE greater then L. 4) Decreased ability to complete physical activity) Physical Therapy Goals: 1) Assess the patient's balance using objective balance testing. 2)Assess the patient's bed mobility. 3) The patient will ambulate with appropriate assistive device independently distances of 100 feet plus with minimal shortness of breath. 4) The patient will be independent with all transfers and bed mobility. 5)The patient will tolerate 20 to 30 minutes of physical activity with one to two rest periods. 6) Increase LE strength 1/3 muscle grade to improve stability of gait pattern. Prognosis: Good Physical Therapy Plan: PT 1 to 2 times a day for gait training, bed mobility, transfer training, LE strengthening and muscular endurance exercises.
--- NOTE | 2018-08-30 15:27 | Physical Therapy Tx Note ---
Physical Therapy Tx Note - Treatment Note Tolerated: Good Total Time Spent With Patient: 20 Physical Therapy Tx Note: Detail (Pt sleeping in recliner upon arrival, but awakened easily and cooperative for therapy. Stated she felt like she might have done too much this morning, had just had breathing treatment. Chose to do LE exercises instead of walking; provided w/written illustrated instructions and performed 10 reps each B of hip flexion, knee extension, hip adduction w/ pillow, hip abduction w/yellow theraband, resisted knee extension w/yellow theraband. Assisted to bathroom for toileting (mostly for O2 tubing) w/SBA for transfers and gait w/4WW. Returned to bedside recliner, mildly short of breath. Verbalized and demonstrated good understanding of HEP. Left up in chair w/call light in reach, son present in room.) Physical Therapy Problem List: Detail (1) Shortness of breath with ambulation/ all physical activity 2) Assistance with sit to stand transfer from low surface 3) Decreased LE strength R LE greater then L. 4) Decreased ability to complete physical activity) Physical Therapy Goals: 1) Assess the patient's balance using objective balance testing. 2)Assess the patient's bed mobility. 3) The patient will ambulate with appropriate assistive device independently distances of 100 feet plus with minimal shortness of breath. 4) The patient will be independent with all transfers and bed mobility. 5)The patient will tolerate 20 to 30 minutes of physical activity with one to two rest periods. 6) Increase LE strength 1/3 muscle grade to improve stability of gait pattern. Physical Therapy Plan: PT 1 to 2 times a day for gait training, bed mobility, transfer training, LE strengthening and muscular endurance exercises.
[2018-08-30] MEDS ORDERED: Diph,Pert(Acell),Tet Vac 0.5 ML SYR IM ONE (15:38)
[2018-08-30] MEDS: ESCITALOPRAM 10 MG TABLET PO SCH (22:07)
[2018-08-30] MEDS: SIMVASTATIN 20 MG TABLET PO SCH (22:08)
[2018-08-30] MEDS: EZETIMIBE 10 MG TABLET PO SCH (22:08)
[2018-08-31] MEDS: PREDNISONE 20 MG TAB PO SCH (07:46)
[2018-08-31] MEDS: UMECLIDINIUM BROMIDE (INCRUSE) 62.5MCG IH SCH (10:04)
[2018-08-31] MEDS: BREO (FLUTICASONE/VILANTEROL) 200MCG/25MCG INHALER INH SCH (10:04)
--- NOTE | 2018-08-31 10:27 | Occupational Therapy Tx Note ---
Occupational Therapy Tx Note - Treatment Note Tolerated: Good Total Time Spent With Patient: 35 (ADL) Occupational Therapy Treatment Note: Detail (S: Pt up in chair, looking forward to showering. O: Pt using 1 1/2 liters of oxygen throughout treatment. Sit to stand and amb to toilet with 4 wheeled walker Indly. Pt completed toileting Indly including pants mgmt and hygiene. Pt doffed slipper socks, pants and underwear Indly in sitting with multiple short rest breaks and verbal cues for pursed lip breathing. Natan socks doffed per OT. Pt doffed sweatshirt Indly. Pt sit to stand from toilet Indly and amb to shower with 4 wheeled walker Indly. Pt completed partial body showering in sitting with max assist to wash hair due to fatigue and shortness of breath. Pt dried self with assist for back and hair. Pt donned sweatshirt, underwear, pants and slipper socks Indly in sitting. Pt amb to chair with 4 wheeled walker Indly. A: Pt very short of breath and required many rest breaks during shower and dressing activity. Pt able to pace self and use energy conservation techniques appropriately.) Occupational Therapy Problem List: Detail (1. Decreased Ind with total body dressing. 2. Decreased Ind with showering in sitting. 3. Decreased activity tolerance needed for safe and Ind self cares and IADLs.) Occupational Therapy Goals: 1. Pt will be Ind with total body dressing using energy conservation techniques. 2. Pt will be Ind with showering in sitting using energy conservation techniques. 3. Pt will demonstrate improved endurance to allow safe and Ind self cares. Prognosis: Good Occupational Therapy Plan: OT 2-4 days per week to address goals and problem list. Thank you for this referral.
[2018-08-31] MEDS: CARVEDILOL 12.5 MG TABLET PO SCH ×2 (10:33→23:15)
[2018-08-31] MEDS: FUROSEMIDE 20 MG TABLET PO SCH (10:34)
[2018-08-31] MEDS: ASPIRIN 81 MG TABEC PO SCH (10:34)
[2018-08-31] MEDS: PATIENT OWN MED: RALOXIFENE 60 MG PO SCH (10:36)
[2018-08-31] MEDS: DALIRESP 500 MCG PO SCH (10:37)
[2018-08-31] MEDS: ENOXAPARIN 40 MG/0.4 ML SYR SQ SCH (10:38)
--- NOTE | 2018-08-31 14:00 | Physical Therapy Tx Note ---
Physical Therapy Tx Note - Treatment Note Tolerated: Fair Total Time Spent With Patient: 30 Physical Therapy Tx Note: Detail (The patient was up in a chair when PT arrived. The patient ambulated with 4 wheeled walker 67 ft. x 2 and 130 feet x 2 with 2 L of O2. (two seperate 15 min sessions)O2 sat level was 75-80 after ambulating and returned after a minute rest period to 90. The patient's balance was tested using the Tinetti Assessment Tool was 21/28 which is moderate risk for falling. The patient completed LE strengthening exercises which included: yellow T-band LAQ and hip abduction, hip marching and hip adduction all x 10 reps. O2 sat level decreased to 85-88 with LE exercises with recovery to the 90' s after 2 to 3 minutes. The patient is gradually increasing her ambulation distance.) Physical Therapy Problem List: Detail (1) Shortness of breath with ambulation/ all physical activity 2) Assistance with sit to stand transfer from low surface 3) Decreased LE strength R LE greater then L. 4) Decreased ability to complete physical activity) Physical Therapy Goals: 1) Assess the patient's balance using objective balance testing. 2)Assess the patient's bed mobility. 3) The patient will ambulate with appropriate assistive device independently distances of 100 feet plus with minimal shortness of breath. 4) The patient will be independent with all transfers and bed mobility. 5)The patient will tolerate 20 to 30 minutes of physical activity with one to two rest periods. 6) Increase LE strength 1/3 muscle grade to improve stability of gait pattern. Physical Therapy Plan: PT 1 to 2 times a day for gait training, bed mobility, transfer training, LE strengthening and muscular endurance exercises.
[2018-08-31] MEDS: ESCITALOPRAM 10 MG TABLET PO SCH (23:16)
[2018-08-31] MEDS: SIMVASTATIN 20 MG TABLET PO SCH (23:17)
[2018-08-31] MEDS: EZETIMIBE 10 MG TABLET PO SCH (23:18)
[2018-09-01] MEDS: PREDNISONE 20 MG TAB PO SCH (08:06)
[2018-09-01] MEDS: UMECLIDINIUM BROMIDE (INCRUSE) 62.5MCG IH SCH (09:46)
[2018-09-01] MEDS: BREO (FLUTICASONE/VILANTEROL) 200MCG/25MCG INHALER INH SCH (09:46)
[2018-09-01] MEDS: ASPIRIN 81 MG TABEC PO SCH (10:00)
[2018-09-01] MEDS: CARVEDILOL 12.5 MG TABLET PO SCH ×2 (10:00→21:41)
[2018-09-01] MEDS: ENOXAPARIN 40 MG/0.4 ML SYR SQ SCH (10:00)
[2018-09-01] MEDS: FUROSEMIDE 20 MG TABLET PO SCH (10:00)
[2018-09-01] MEDS: PATIENT OWN MED: RALOXIFENE 60 MG PO SCH (10:01)
[2018-09-01] MEDS: DALIRESP 500 MCG PO SCH (10:01)
[2018-09-01] MEDS: SIMVASTATIN 20 MG TABLET PO SCH (21:41)
[2018-09-01] MEDS: EZETIMIBE 10 MG TABLET PO SCH (21:41)
[2018-09-01] MEDS: ESCITALOPRAM 10 MG TABLET PO SCH (21:41)
[2018-09-02] MEDS: ENOXAPARIN 40 MG/0.4 ML SYR SQ SCH (09:08)
[2018-09-02] MEDS: CARVEDILOL 12.5 MG TABLET PO SCH ×2 (09:08→21:51)
[2018-09-02] MEDS: ASPIRIN 81 MG TABEC PO SCH (09:09)
[2018-09-02] MEDS: FUROSEMIDE 20 MG TABLET PO SCH (09:09)
[2018-09-02] MEDS: PREDNISONE 20 MG TAB PO SCH (09:09)
[2018-09-02] MEDS: PATIENT OWN MED: RALOXIFENE 60 MG PO SCH (09:10)
[2018-09-02] MEDS: DALIRESP 500 MCG PO SCH (09:10)
[2018-09-02] MEDS: PREDNISONE 10 MG TAB PO SCH (09:12)
[2018-09-02] MEDS: BREO (FLUTICASONE/VILANTEROL) 200MCG/25MCG INHALER INH SCH (09:33)
[2018-09-02] MEDS: UMECLIDINIUM BROMIDE (INCRUSE) 62.5MCG IH SCH (09:33)
[2018-09-02] MEDS: SIMVASTATIN 20 MG TABLET PO SCH (21:50)
[2018-09-02] MEDS: ESCITALOPRAM 10 MG TABLET PO SCH (21:51)
[2018-09-02] MEDS: EZETIMIBE 10 MG TABLET PO SCH (21:51)
[2018-09-03] MEDS: PREDNISONE 10 MG TAB PO SCH (08:33)
[2018-09-03] MEDS: PREDNISONE 20 MG TAB PO SCH (08:33)
[2018-09-03] MEDS: CARVEDILOL 12.5 MG TABLET PO SCH ×2 (09:03→21:48)
[2018-09-03] MEDS: FUROSEMIDE 20 MG TABLET PO SCH (09:03)
[2018-09-03] MEDS: ASPIRIN 81 MG TABEC PO SCH (09:03)
[2018-09-03] MEDS: ENOXAPARIN 40 MG/0.4 ML SYR SQ SCH (09:03)
[2018-09-03] MEDS: DALIRESP 500 MCG PO SCH (09:04)
[2018-09-03] MEDS: PATIENT OWN MED: RALOXIFENE 60 MG PO SCH (09:04)
[2018-09-03] MEDS: BREO (FLUTICASONE/VILANTEROL) 200MCG/25MCG INHALER INH SCH (09:57)
[2018-09-03] MEDS: UMECLIDINIUM BROMIDE (INCRUSE) 62.5MCG IH SCH (09:58)
--- NOTE | 2018-09-03 10:18 | Occupational Therapy Tx Note ---
Occupational Therapy Tx Note - Treatment Note Tolerated: Good Total Time Spent With Patient: 40 (ther activity) Occupational Therapy Treatment Note: Detail (S: Pt up in room, ready for OT. O : Pt using 1 1/2 liters of oxygen during treatment. Pt amb 65 feet with 4 wheeled walker Indly and then transported to rehab gym via wheelchair. Pt completed 5 minutes on nustep with rest breaks as needed with sats above 91 throughout. Pt completed reaching into overhead and lower cupboards to simulate kitchen activity - 4 sets of 12 reps for overhead and 1 set of lower reaching with rest breaks in between. Pt was able to maintain sats above 90 while using 1 1/2 liters of oxygen but dropped to 87 without oxygen on last set of overhead reaching activity. Reviewed energy conservation techniques and use of oxygen during activity once she returns home. Pt is hoping to wean off oxygen during the day. Pt transported back to room and left up in chair with respiratory. A: Shortness of breath continues with UE activity although endurance is somewhat improved.) Occupational Therapy Problem List: Detail (1. Decreased Ind with total body dressing. 2. Decreased Ind with showering in sitting. 3. Decreased activity tolerance needed for safe and Ind self cares and IADLs.) Occupational Therapy Goals: 1. Pt will be Ind with total body dressing using energy conservation techniques. 2. Pt will be Ind with showering in sitting using energy conservation techniques. 3. Pt will demonstrate improved endurance to allow safe and Ind self cares. Prognosis: Good Occupational Therapy Plan: OT 2-4 days per week to address goals and problem list. Thank you for this referral.
--- NOTE | 2018-09-03 13:44 | Physical Therapy Tx Note ---
Physical Therapy Tx Note - Treatment Note Tolerated: Good Total Time Spent With Patient: 30 Physical Therapy Tx Note: Detail (The patient reports she doesn't feel energetic since her B/P is low. The patient ambulated with 4 wheeled walker a distance of 67 feet with 1 1/2 L of O2. The patient ambulated on 3 steps with use of railing x 2 (rest period inbetween). Unsteadiness in LE's was noted with descending stairs. The patient ambulated back to room with a rest period. The patient was instructed in standing squats x , MARIYA, quad sets to increase quad strength. The patient did well with O2 sat. level remaining 83-90 with activity. ) Physical Therapy Problem List: Detail (1) Shortness of breath with ambulation/ all physical activity 2) Assistance with sit to stand transfer from low surface 3) Decreased LE strength R LE greater then L. 4) Decreased ability to complete physical activity) Physical Therapy Goals: 1) Assess the patient's balance using objective balance testing. 2)Assess the patient's bed mobility. 3) The patient will ambulate with appropriate assistive device independently distances of 100 feet plus with minimal shortness of breath. 4) The patient will be independent with all transfers and bed mobility. 5)The patient will tolerate 20 to 30 minutes of physical activity with one to two rest periods. 6) Increase LE strength 1/3 muscle grade to improve stability of gait pattern. Physical Therapy Plan: PT 1 to 2 times a day for gait training, bed mobility, transfer training, LE strengthening and muscular endurance exercises.
--- NOTE | 2018-09-03 16:35 | Occupational Therapy Tx Note ---
Occupational Therapy Tx Note - Treatment Note Occupational Therapy Treatment Note: Detail (Discussed kitchen assessment and pt deferring at this time as she does not feel this will be a problem after discharge. She did request healthy microwave meal options and this was passed on to Zo in dietary.) Occupational Therapy Problem List: Detail (1. Decreased Ind with total body dressing. 2. Decreased Ind with showering in sitting. 3. Decreased activity tolerance needed for safe and Ind self cares and IADLs.) Occupational Therapy Goals: 1. Pt will be Ind with total body dressing using energy conservation techniques. 2. Pt will be Ind with showering in sitting using energy conservation techniques. 3. Pt will demonstrate improved endurance to allow safe and Ind self cares. Occupational Therapy Plan: OT 2-4 days per week to address goals and problem list. Thank you for this referral.
[2018-09-03] MEDS: SIMVASTATIN 20 MG TABLET PO SCH (21:48)
[2018-09-03] MEDS: ESCITALOPRAM 10 MG TABLET PO SCH (21:48)
[2018-09-03] MEDS: EZETIMIBE 10 MG TABLET PO SCH (21:49)
[2018-09-04] MEDS: PREDNISONE 20 MG TAB PO SCH (07:34)
[2018-09-04] MEDS: PREDNISONE 10 MG TAB PO SCH (07:35)
[2018-09-04] MEDS: UMECLIDINIUM BROMIDE (INCRUSE) 62.5MCG IH SCH (10:13)
[2018-09-04] MEDS: BREO (FLUTICASONE/VILANTEROL) 200MCG/25MCG INHALER INH SCH (10:14)
[2018-09-04] MEDS: FUROSEMIDE 20 MG TABLET PO SCH (10:32)
[2018-09-04] MEDS: ASPIRIN 81 MG TABEC PO SCH (10:33)
[2018-09-04] MEDS: CARVEDILOL 12.5 MG TABLET PO SCH ×2 (10:33→23:19)
[2018-09-04] MEDS: ENOXAPARIN 40 MG/0.4 ML SYR SQ SCH (10:34)
[2018-09-04] MEDS: DALIRESP 500 MCG PO SCH (10:36)
[2018-09-04] MEDS: PATIENT OWN MED: RALOXIFENE 60 MG PO SCH (10:37)
--- NOTE | 2018-09-04 10:55 | Occupational Therapy Tx Note ---
Occupational Therapy Tx Note - Treatment Note Tolerated: Good Total Time Spent With Patient: 36 (2 ADL) Occupational Therapy Treatment Note: Detail (S: Pt sitting in chair upon arrival , agreeable to OT Tx and requesting shower. Reports she is feeling good today and her breathing is improving. O: Pt using 1.5 L O2 NC and demos good use of self-initiated rest breaks and PLB technique throughout Tx. Pt completes toileting independently. Pt demos ability to don/doff UB and LB dress independently. Pt showers with several self-initiated rest breaks (occassional therapist initiated), requiring assist to wash hair secondary to fatigue and SOB. Pt demos safe use of 4WW during functional ambulation within her bedroom. Pt educated on handout of energy conservation techniques to use at home. A: Pt moderately SOB throughout Tx and requiring many rest breaks, however demos good pacing and self-initiated rests. Would benefit from further education on EC techs to use at home when feeling SOB to reduce risk of overexertion.) Occupational Therapy Problem List: Detail (1. Decreased Ind with total body dressing. 2. Decreased Ind with showering in sitting. 3. Decreased activity tolerance needed for safe and Ind self cares and IADLs.) Occupational Therapy Goals: 1. Pt will be Ind with total body dressing using energy conservation techniques. 2. Pt will be Ind with showering in sitting using energy conservation techniques. 3. Pt will demonstrate improved endurance to allow safe and Ind self cares. Prognosis: Good Occupational Therapy Plan: OT 2-4 days per week to address goals and problem list. Thank you for this referral.
--- NOTE | 2018-09-04 15:15 | Physical Therapy Tx Note ---
Physical Therapy Tx Note - Treatment Note Tolerated: Good Total Time Spent With Patient: 30 Physical Therapy Tx Note: Detail (The patient was up in chair when PT arrived. The patient stated she rode the pedalar for 45 minutes and asked how she could progress.Resistance was increased on pedalar. The patient ambulated with 4 wheeled walker a distance of 67 feet x 2 with 1.5 L of O2 with minimal shortness of breath. The patient completed a tub transfer stepping over the tub lip with supervision for safety only. The patient completed LE exercises in parallel bar including squats, hip abduction and hip extension and step ups all x 10 reps. Patient required one rest period to complete LE exercises.) Physical Therapy Problem List: Detail (1) Shortness of breath with ambulation/ all physical activity 2) Assistance with sit to stand transfer from low surface 3) Decreased LE strength R LE greater then L. 4) Decreased ability to complete physical activity) Physical Therapy Goals: 1) Assess the patient's balance using objective balance testing.(Goal Met). 2)Assess the patient's bed mobility. 3) The patient will ambulate with appropriate assistive device independently distances of 100 feet plus with minimal shortness of breath.(Goal Met). 4) The patient will be independent with all transfers and bed mobility. 5)The patient will tolerate 20 to 30 minutes of physical activity with one to two rest periods. 6) Increase LE strength 1/3 muscle grade to improve stability of gait pattern. Physical Therapy Plan: PT 1 to 2 times a day for gait training, bed mobility, transfer training, LE strengthening and muscular endurance exercises.
[2018-09-04] MEDS: SIMVASTATIN 20 MG TABLET PO SCH (23:18)
[2018-09-04] MEDS: EZETIMIBE 10 MG TABLET PO SCH (23:19)
[2018-09-04] MEDS: ESCITALOPRAM 10 MG TABLET PO SCH (23:19)
[2018-09-05] MEDS: PREDNISONE 20 MG TAB PO SCH (08:39)
[2018-09-05] MEDS: CARVEDILOL 12.5 MG TABLET PO SCH ×2 (10:20→21:16)
[2018-09-05] MEDS: UMECLIDINIUM BROMIDE (INCRUSE) 62.5MCG IH SCH (10:23)
[2018-09-05] MEDS: BREO (FLUTICASONE/VILANTEROL) 200MCG/25MCG INHALER INH SCH (10:23)
[2018-09-05] MEDS: FUROSEMIDE 20 MG TABLET PO SCH (10:29)
[2018-09-05] MEDS: ENOXAPARIN 40 MG/0.4 ML SYR SQ SCH (10:32)
[2018-09-05] MEDS: ASPIRIN 81 MG TABEC PO SCH (10:32)
[2018-09-05] MEDS: DALIRESP 500 MCG PO SCH (10:33)
[2018-09-05] MEDS: PATIENT OWN MED: RALOXIFENE 60 MG PO SCH (10:33)
--- NOTE | 2018-09-05 12:47 | Occupational Therapy Tx Note ---
Occupational Therapy Tx Note - Treatment Note Tolerated: Good Total Time Spent With Patient: 40 (ther exercise) Occupational Therapy Treatment Note: Detail (S: Pt up in chair ready for OT. O : Pt amb 135 feet with 4 wheeled walker using 1 1/2 liters of O2 Indly. Pt transported to rehab gym via wheelchair. O: Pt completed repetitive reaching and resisted pinch activity with graded clothespins using padmini UEs (right only to shoulder height). Pt completed standing and reaching overhead and below waist into cupboard to simulate kitchen activity x 10 reps x 2 sets overhead and 1 set below waist. Pt required rest breaks between each set. Provided pt with red theraputty and written HEP for padmini arts and crafts teacher, pinch and rolling. Pt completed 8 min of theraputty strengthening. Reviewed energy conservation principles with self care and meal/home mgmt tasks, diaphramatic breathing, deep breathing and coordinating breathing with activity with pt as well as provided written information. Pt verbalized understanding. Pt left with PT in rehab gym. A: Shortness of breath is slowly improving sven. with overhead activities.) Occupational Therapy Problem List: Detail (1. Decreased Ind with total body dressing. 2. Decreased Ind with showering in sitting. 3. Decreased activity tolerance needed for safe and Ind self cares and IADLs.) Occupational Therapy Goals: 1. Pt will be Ind with total body dressing using energy conservation techniques. 2. Pt will be Ind with showering in sitting using energy conservation techniques. 3. Pt will demonstrate improved endurance to allow safe and Ind self cares. Prognosis: Good Occupational Therapy Plan: OT 2-4 days per week to address goals and problem list. Thank you for this referral.
--- NOTE | 2018-09-05 13:19 | Physical Therapy Tx Note ---
Physical Therapy Tx Note - Treatment Note Tolerated: Good Total Time Spent With Patient: 20 Physical Therapy Tx Note: Detail (The patient's balance was retested using Tinetti Assessment Tool and was rated as 22/28 which remains in the moderate risk for falling category. The patient's strength was retested and was : bilateral hip abductors and adductors 4+/5, hip flexors 4/5, knee extensors L 4/ 5, R 4+/5, ankle musculature 4+/5. The patient reports she sleeps in recliner at home so has no need to complete bed mobility. The patient ambulated with front wheeled walker a distance of 104 feet x 2 with 1 1/2 L of O2. The patient' s LE strength has improved. Patient continues to complain of knee weakness.) Physical Therapy Problem List: Detail (1) Shortness of breath with ambulation/ all physical activity 2) Assistance with sit to stand transfer from low surface 3) Decreased LE strength R LE greater then L. 4) Decreased ability to complete physical activity) Physical Therapy Goals: 1) Assess the patient's balance using objective balance testing.(Goal Met). 2)Assess the patient's bed mobility (NA- patient sleeps in recliner). 3) The patient will ambulate with appropriate assistive device independently distances of 100 feet plus with minimal shortness of breath.(Goal Met). 4) The patient will be independent with all transfers and bed mobility ( Goal Met). 5)The patient will tolerate 20 to 30 minutes of physical activity with one to two rest periods. 6) Increase LE strength 1/3 muscle grade to improve stability of gait pattern. Physical Therapy Plan: PT 1 to 2 times a day for gait training, bed mobility, transfer training, LE strengthening and muscular endurance exercises.
--- NOTE | 2018-09-05 14:28 | Physician Progress Note ---
Subjective - Date Date of Progress Note: 09/05/18 - Admitting Diagnosis Diagnosis: Deconditioning r/t PNA - Subjective Nursing Care Plan Problem List Activity Intolerance (Swing Bed) Start: 08/29/18 14: 22 Freq: Status: Active Protocol: Created 08/29/18 14:22 [facility] (Rec: 08/29/18 14:22 [facility] [id number]) Knowledge Deficit (Swing Bed) Start: 08/29/18 14: 22 Freq: Status: Active Protocol: Created 08/29/18 14:22 [facility] (Rec: 08/29/18 14:22 [facility] [id number]) Pain (Swing Bed) Start: 08/29/18 14: 22 Freq: Status: Active Protocol: Created 08/29/18 14:22 [facility] (Rec: 08/29/18 14:22 [facility] [id number]) General - Cognitive Patterns Speech: Normal Thought Process: Intact Thought Content: Normal - Communication Select best description of speech pattern: Clear Speech Ability to express ideas and wants: Understood Understanding verbal content: Understands - Mood and Behavior Patterns Appearance: Well Groomed Mood: Normal Attitude: Cooperative Motor Activity: Calm Affect: Appropriate Hallucinations: Denies - Physical Functioning Activity Level: Up as tolerated Turning: Self ad eli ROM Ability: Within Normal Limits Assistive Devices: 4 Wheel Walker Ambulation Ability: Independent Bed Mobility: Independent Transfer Ability: Independent Bathing Ability: Independent Personal Hygiene: Independent Dressing Ability: Independent Eating (Feeding) Ability: Independent Toileting Ability: Independent Administer Own Medication: Independent - Continence Bowel Pattern: Normal for Patient Bladder Pattern: Normal Meds/Allergies - Allergies Allergies Allergy/AdvReac Type Severity Reaction Status Date / Time No Known Drug Allergies Allergy Verified 08/21/18 14:08 - Active Medications Current Medications Albuterol Sulfate (Albuterol Sulfate) 2.5 mg INH Q4H PRN PRN Reason: SHORTNESS OF BREATH Last Admin: 08/30/18 12:46 Dose: 2.5 mg Aspirin (Ecotrin (Ec)) 81 mg PO DAILY [facility] Last Admin: 09/05/18 10:32 Dose: 81 mg Carvedilol (Coreg) 12.5 mg PO BID [facility] Last Admin: 09/05/18 10:20 Dose: Not Given Ezetimibe (Zetia) 10 mg PO QHS [facility] Last Admin: 09/04/18 23:19 Dose: 10 mg Enoxaparin Sodium (Lovenox) 40 mg SQ DAILY [facility] Last Admin: 09/05/18 10:32 Dose: 40 mg Escitalopram Oxalate (Lexapro) 15 mg PO QHS [facility] Last Admin: 09/04/18 23:19 Dose: 15 mg Furosemide (Lasix) 20 mg PO DAILY [facility] Last Admin: 09/05/18 10:29 Dose: Not Given Patient Own Med: (Raloxifene 60 Mg) 1 each PO DAILY [facility] Last Admin: 09/05/18 10:33 Dose: 1 each Patient Own Med: (Daliresp 500 Mcg) 1 each PO DAILY [facility] Last Admin: 09/05/18 10:33 Dose: 1 each Prednisone (Prednisone 20mg) 20 mg PO DAILYWM [facility] Stop: 09/07/18 08:01 Last Admin: 09/05/18 08:39 Dose: 20 mg Prednisone (Prednisone 10mg) 10 mg PO DAILYWM [facility] Stop: 09/10/18 08:01 Simvastatin (Zocor) 80 mg PO QHS [facility] Last Admin: 09/04/18 23:18 Dose: 80 mg Objective - Vital Signs Vital Signs: Vital Signs - Last 24 Hrs Pulse Pulse Resp BP Pulse Ox 09/05/18 10:57 97/45 09/05/18 10:23 72 16 93 L 09/05/18 08:00 80 20 80/54 93 L - General General Appearance: Alert, Oriented x3, Cooperative, No acute distress Limitations: Physical limitation (weakness, STRICKLAND) - Head Head exam: Atraumatic Head exam detail: negative: Abrasion, Contusion - Eye Eye exam: Normal appearance Pupils: Normal accommodation - ENT ENT exam: Normal exam, Mucous membranes moist Ear exam: Normal external inspection Nasal Exam: Normal inspection Mouth exam: Normal external inspection - Neck Neck exam: Normal inspection - Respiratory Respiratory exam: Decreased breath sounds, Prolonged expiratory. negative: Wheezes - Cardiovascular Peripheral Pulses: 3+: Radial (R), Radial (L), Dorsalis Pedis (R), Dorsalis Pedis (L) - GI/Abdominal GI/Abdominal exam: Soft, Normal bowel sounds, Distended - Rectal Rectal exam: Deferred - exam: Deferred - Extremities Extremities exam: Normal inspection, Full ROM, Normal capillary refill, Pedal edema (trace) - Back Back exam: Reports: Normal inspection, Full ROM. Denies: CVA tenderness (R), CVA tenderness (L) - Neurological Neurological exam: Alert, CN II-XII intact, Normal gait, Oriented X3 - Psychiatric Psychiatric exam: Normal affect, Normal mood - Skin Skin exam: Dry, Normal color, Warm, Other (brusing padmini wrist (ABGs and heart cath access sites), no s/s infection) Discharge Potential - Discharge Potential Discharge Potential: Planning for d/c home this Monday with home health care in place - Discharge Needs Community Services Used Prior to Admission: None Patient Discharge Plan Description: Return Home Community Services Needed at Discharge: Physical Therapy Discharge Needs Comment: Pt would like same home health company as she had last time she discharged Plan - Swing Bed Certification Initial Certification Due: 08/29/18 14 Day Re-Cert Due: 09/12/18 44 Day Re-Cert Due: 10/12/18 74 Day Re-Cert Due: 11/11/18 - Detailed Diagnosis and Plan (1) Physical deconditioning Current Visit: Yes Status: Acute Base Code: R53.81 - OTHER [place] Comment : 09/05/18 -PT/OT ordered, continue to decrease STRICKLAND with ADLs -up in chair and hallway several times a day -independent for ADLs using O2 and 4-wheeled walker (2) DVT prophylaxis Current Visit: No Status: Acute Base Code: [id number] - Comment: 09/05/18 -lovenox 40 mg SQ daily (3) Full code status Current Visit: No Status: Acute Base Code: Z78.9 - OTHER SPECIFIED HEALTH STATUS Comment: 09/05/18- patient is full code.
[2018-09-05] MEDS: ESCITALOPRAM 10 MG TABLET PO SCH (21:16)
[2018-09-05] MEDS: SIMVASTATIN 20 MG TABLET PO SCH (21:16)
[2018-09-05] MEDS: EZETIMIBE 10 MG TABLET PO SCH (21:16)
[2018-09-06] MEDS: PREDNISONE 20 MG TAB PO SCH (09:03)
[2018-09-06] MEDS: ASPIRIN 81 MG TABEC PO SCH (09:03)
[2018-09-06] MEDS: PATIENT OWN MED: RALOXIFENE 60 MG PO SCH (09:04)
[2018-09-06] MEDS: DALIRESP 500 MCG PO SCH (09:04)
[2018-09-06] MEDS: UMECLIDINIUM BROMIDE (INCRUSE) 62.5MCG IH SCH (09:33)
[2018-09-06] MEDS: BREO (FLUTICASONE/VILANTEROL) 200MCG/25MCG INHALER INH SCH (09:34)
[2018-09-06] MEDS: ENOXAPARIN 40 MG/0.4 ML SYR SQ SCH (09:53)
[2018-09-06] MEDS: FUROSEMIDE 20 MG TABLET PO SCH (10:02)
[2018-09-06] MEDS: CARVEDILOL 12.5 MG TABLET PO SCH ×2 (10:02→22:04)
[2018-09-06] MEDS ORDERED: FUROSEMIDE 20 MG TABLET PO PRN (14:10)
--- NOTE | 2018-09-06 15:04 | Physical Therapy Tx Note ---
Physical Therapy Tx Note - Treatment Note Tolerated: Good Total Time Spent With Patient: 30 Physical Therapy Tx Note: Detail (Patient was seated in chair upon COACH arrival. Patient states bilateral calves are sore today, possibly from using portable bike in her room. Patient transferred sit to and from stand SBA x1. Patient ambulated 176 feet x2 with four wheeled walker with 1.5 L portable oxygen SBA x1. Patient transferred sit to and from stand SBA x1. Patient performed the following exercises x10-15 reps each: seated marching, seated heel raises, seated toe raises, and LAQ. Patient transferred sit to and from stand SBA x1. Patient performed gastroc stretch and soleus stretch standing x30 seconds each bilateral. Patient required seated rest break with ambulation and exercises due to shortness of breath and fatigue. Patient reports feeling tired after treatment. Patient was left seated in chair on 1.5L O2 with call light within reach.) Physical Therapy Problem List: Detail (1) Shortness of breath with ambulation/ all physical activity 2) Assistance with sit to stand transfer from low surface 3) Decreased LE strength R LE greater then L. 4) Decreased ability to complete physical activity) Physical Therapy Goals: 1) Assess the patient's balance using objective balance testing.(Goal Met). 2)Assess the patient's bed mobility (NA- patient sleeps in recliner). 3) The patient will ambulate with appropriate assistive device independently distances of 100 feet plus with minimal shortness of breath.(Goal Met). 4) The patient will be independent with all transfers and bed mobility ( Goal Met). 5)The patient will tolerate 20 to 30 minutes of physical activity with one to two rest periods. 6) Increase LE strength 1/3 muscle grade to improve stability of gait pattern. Prognosis: Good Physical Therapy Plan: PT 1 to 2 times a day for gait training, bed mobility, transfer training, LE strengthening and muscular endurance exercises.
--- NOTE | 2018-09-06 17:49 | Physical Therapy Tx Note ---
Physical Therapy Tx Note - Treatment Note Tolerated: Good Total Time Spent With Patient: 30 Physical Therapy Tx Note: Detail (Patient was seated in chair upon [employer] SALESPERSON arrival. Patient states calves feel better this afternoon. Patient transferred sit to and from stand SBA x1. Patient ambulated 279 feet x2 with four wheeled walker with 2L portable oxygen SBA x1. Patient required seated rest break with ambulation due to fatigue and shortness of breath. Patient transferred sit to and from stand SBA x1. Patient performed the following seated exercises with 1.5L oxygen x10 reps each: heel raises, toe raises, marching, LAQ, isometric hamstring sets, isometric hip abduction, and adductor squeezes. Patient tolerated treatment well. Patient displays shortness of breath with ambulation , and seated exercises. Patient reports feeling tired after treatment. Patient was left seated in chair with call light within reach.) Physical Therapy Problem List: Detail (1) Shortness of breath with ambulation/ all physical activity 2) Assistance with sit to stand transfer from low surface 3) Decreased LE strength R LE greater then L. 4) Decreased ability to complete physical activity) Physical Therapy Goals: 1) Assess the patient's balance using objective balance testing.(Goal Met). 2)Assess the patient's bed mobility (NA- patient sleeps in recliner). 3) The patient will ambulate with appropriate assistive device independently distances of 100 feet plus with minimal shortness of breath.(Goal Met). 4) The patient will be independent with all transfers and bed mobility ( Goal Met). 5)The patient will tolerate 20 to 30 minutes of physical activity with one to two rest periods. 6) Increase LE strength 1/3 muscle grade to improve stability of gait pattern. Prognosis: Good Physical Therapy Plan: PT 1 to 2 times a day for gait training, bed mobility, transfer training, LE strengthening and muscular endurance exercises.
[2018-09-06] MEDS: SIMVASTATIN 20 MG TABLET PO SCH (21:54)
[2018-09-06] MEDS: EZETIMIBE 10 MG TABLET PO SCH (21:56)
[2018-09-06] MEDS: ESCITALOPRAM 10 MG TABLET PO SCH (21:57)
[2018-09-07] MEDS: ASPIRIN 81 MG TABEC PO SCH (09:06)
[2018-09-07] MEDS: PREDNISONE 20 MG TAB PO SCH (09:06)
[2018-09-07] MEDS: CARVEDILOL 12.5 MG TABLET PO SCH (09:06)
[2018-09-07] MEDS: ENOXAPARIN 40 MG/0.4 ML SYR SQ SCH (09:07)
[2018-09-07] MEDS: DALIRESP 500 MCG PO SCH (09:07)
[2018-09-07] MEDS: PATIENT OWN MED: RALOXIFENE 60 MG PO SCH (09:07)
[2018-09-07] MEDS: BREO (FLUTICASONE/VILANTEROL) 200MCG/25MCG INHALER INH SCH (09:54)
[2018-09-07] MEDS: UMECLIDINIUM BROMIDE (INCRUSE) 62.5MCG IH SCH (09:54)
--- NOTE | 2018-09-07 10:10 | Physical Therapy Tx Note ---
Physical Therapy Tx Note - Treatment Note Tolerated: Good Total Time Spent With Patient: 30 Physical Therapy Tx Note: Detail (Patient states she did her portable bike for a half hour last night and isn't too sore today. Patient was seated in chair with nursing upon STORAGE [employer]UT[employer] ARCHITECT arrival. Patient transferred sit to and from stand independently. Patient ambulated 13 feet x2 without assistive device independently with 1.5L O2. Patient transferred sit to and from stand independently. Patient ambulated 186 feet x2 with four wheeled walker SBA x1 with 2L portable O2. Patient transferred sit to and from stand independently. Patient performed the following seated exercises x15-20 reps each: marching, LAQ , hamstring curls with yellow theraband, hip abduction with red theraband, and isometric hip adduction. Patient tolerated treatment well. Patient displays shortness of breath with ambulation, and required seated rest break. Patient required a couple rest breaks with seated exercises due to shortness of breath. Patient reports feeling tired after treatment. Patient was left seated in chair with call light within reach.) Physical Therapy Problem List: Detail (1) Shortness of breath with ambulation/ all physical activity 2) Assistance with sit to stand transfer from low surface 3) Decreased LE strength R LE greater then L. 4) Decreased ability to complete physical activity) Physical Therapy Goals: 1) Assess the patient's balance using objective balance testing.(Goal Met). 2)Assess the patient's bed mobility (NA- patient sleeps in recliner). 3) The patient will ambulate with appropriate assistive device independently distances of 100 feet plus with minimal shortness of breath.(Goal Met). 4) The patient will be independent with all transfers and bed mobility ( Goal Met). 5)The patient will tolerate 20 to 30 minutes of physical activity with one to two rest periods. 6) Increase LE strength 1/3 muscle grade to improve stability of gait pattern. Prognosis: Good Physical Therapy Plan: PT 1 to 2 times a day for gait training, bed mobility, transfer training, LE strengthening and muscular endurance exercises.
--- NOTE | 2018-09-07 10:46 | Discharge Summary ---
Providers Discharge Summary Date: 09/07/18 Date of admission: 08/29/18 14:12 Expected Date of Discharge: 09/07/18 Attending physician: INDIRA CHAMPION Primary care physician: INDIRA CHAMPION Physical Exam - Vital Signs Vital Signs: Vital Signs - Last 24 Hrs Temp Pulse Pulse Resp BP Pulse Ox 09/07/18 09:57 79 20 93 L 09/07/18 08:00 98.2 F 79 16 137/45 97 09/06/18 20:00 97.8 F 75 22 130/47 96 - General General Appearance: Alert, Oriented x3, Cooperative, No acute distress Limitations: Physical limitation (weakness) - Head Head exam: Atraumatic Head exam detail: negative: Abrasion, Contusion - Eye Eye exam: Normal appearance Pupils: Normal accommodation - ENT ENT exam: Normal exam, Mucous membranes moist Ear exam: Normal external inspection Nasal Exam: Normal inspection Mouth exam: Normal external inspection - Neck Neck exam: Normal inspection - Respiratory Respiratory exam: Decreased breath sounds, Prolonged expiratory. negative: Wheezes - Cardiovascular Peripheral Pulses: 3+: Radial (R), Radial (L), Dorsalis Pedis (R), Dorsalis Pedis (L) - GI/Abdominal GI/Abdominal exam: Soft, Normal bowel sounds, Distended - Rectal Rectal exam: Deferred - exam: Deferred - Extremities Extremities exam: Normal inspection, Full ROM, Normal capillary refill, Pedal edema (trace) - Back Back exam: Reports: Normal inspection, Full ROM. Denies: CVA tenderness (R), CVA tenderness (L) - Neurological Neurological exam: Alert, CN II-XII intact, Normal gait, Oriented X3 - Psychiatric Psychiatric exam: Normal affect, Normal mood - Skin Skin exam: Dry, Normal color, Warm, Other (brusing padmini wrist (ABGs and heart cath access sites), no s/s infection) Hospitalization - Hospitalization Admission Diagnosis: Deconditioning r/t PNA - Problem List (1) Physical deconditioning Current Visit: Yes Status: Acute Base Code: R53.81 - OTHER MALAISE Comment : 09/07/18 -independent for ADLs using O2 and 4-wheeled walker -Increased strength, balance, and endurance -Plan to d/c home today with home health service (2) DVT prophylaxis Current Visit: No Status: Acute Base Code: [id number] - Comment: 09/07/18 -Will not d/c home with prophylaxis, pt to return to normal level of activity (3) Full code status Current Visit: No Status: Acute Base Code: Z78.9 - OTHER SPECIFIED HEALTH STATUS Comment: 09/05/18- patient is full code. - Hospitalization Course Disposition: Home Health Service Reason For Discharge/Transfer: Medical Stability Hospital Course: 67 yo female presents for swing bed rehab s/p NSTEMI, resp failure, and pneumonia. Pt has significant PMH of COPD (emphysema), resp failure, anxiety, hyperlipidemia, and poor calorie intake. 08/21/18 Pt presented to [facility] ER for SOB, sats 70% with severe resp distress, reporting onset of symptoms 1 day previous to ER visit. Pt given steroids, neb treatments. CXR showed padmini lower lob pneumonia Pt was transferred to [facility]. 08/21/18 [facility] notes reviewed, pt was paced on bipap for several days, labs revealed NSTEMI, heart cath completed but no STENTs required. Continued Zosyn, neb, steroids through inpt stay and having PTOT work with pt. Pt consulting pulm and cardiology during inpt stay, started on Lasix r/t new onset water retention abd and padmini legs. Pt transitioned to 2L NC, up with some STRICKLAND but functional. D/C to [facility] Swing Bed. 08/29/18 Pt admitted for physical deconditioning r/t pneumonia. Pt in no acute distress, able to talk in complete sentences. Tolerating 2L NC with ADLs and other activities. Pt alert and oriented, remembers most/all of inpt stay. Son at bedside and was unaware pt had NSTEMI when inpt. Lungs diminished throughout but no wheezing noted, heart RRR. DP and PT +3, trace edema lower legs. Abdomen appears larger than pt baseline, concerns for continued water retentions. BS x4. Pt denies any pain, expresses desire to increase strength, healthy weight gain, and decrease STRICK[place]. Skin pink, warm, and dry. POC- Pt to continue PT/OT, improve activity tolerance, continue to diurese, and increase to high protein diet and regain weight loss to return to baseline 100lbs. Pt was 93lbs with onset of PNA. Pt will also complete here cardiology follow up, preventative health mammogram and lower ext doppler ordered from PCP. Follow up PCP 1 week after d/c from swing bed. 09/07/18: Continued progress with PT/OT, plan to d/c home today with home health service in place. Pt. has been using Breo and Incruse during swing bed- per pt - she prefers to try continuing these due to being once/day and she often would forget the 2nd dose of her spiriva. f/u with Yvette as scheduled for 09/13/18 at 4:40pm. PCP MILANA Reza Specialist [facility] (pulm) Condition at Discharge: (2) Stable Discharge Medications - Discharge Medications Prescriptions: Fluticasone/Vilanterol 200/25 [Breo Ellipta 200-25 Mcg INH] 1 puff INH DAILY 30 Days #1 inhaler Umeclidinium [place] (Incruse) [Incruse Ellipta] 1 puff IH DAILY 30 Days #1 inhaler Home Medications: Ambulatory Orders Albuterol Sulfate 0.083% [Neb] [Albuterol Sulfate] 3 ml NEB .EVERY 4-6 HOURS PRN #180 ml 08/24/17 [Last Taken 08/21/18] Aspirin Enteric-Coated [Ecotrin (EC)] 81 mg PO DAILY tabec 08/24/17 [Last Taken 08/21/18] Escitalopram Oxalate [Lexapro] 15 mg PO QHS 08/21/18 [Last Taken 08/20/18] Carvedilol [Coreg] 12.5 mg PO BID 08/29/18 [Last Taken Unknown] Fluticasone/Vilanterol 200/25 [Breo Ellipta 200-25 Mcg INH] 1 puff INH DAILY 30 Days #1 inhaler 09/07/18 [Last Taken Unknown] Umeclidinium [place]idalia (Incruse) [Incruse Ellipta] 1 puff IH DAILY 30 Days #1 inhaler 09/07/18 [Last Taken Unknown] Discharge Plan - Discharge Instructions Activity at Discharge: As Per Physical Therapy Diet at Discharge: Advance to Usual Diet Additional Instructions: Appointments have been scheduled for you as follows: Yvette Varela NP at [facility] on September 13 at 4:40PM. GINA Luu with [facility] at [facility] on October 18 at 1:30 pm. [facility] will see you at home. They can be reached at Quality Measures - Quality Measures Quality Measures: Advance Directives, Documentation of Current Medications in Medical Record, Elder Maltreatment Screen and Follow-Up Plan, Screening for High Blood Pressure and F/U Documented - Current Medications Quality Measure: Measure #130: Documentation of Current Medications Documentation of Current Medications: <Current Medications Documented/Reviewed> [D1589] - Blood Pressure Screening Quality Measure: Screening for High Blood Pressure and Follow-Up Documented Does Patient Have Any of the Following: Active Dx of HTN Blood Pressure Classification: Pre-Hypertensive BP Reading Systolic Measurement: 125 Diastolic Measurement: 42 Screening for High Blood Pressure: Patient Exclusion, Hx of HTN [G9744] - Advance Directives Quality Measure: Measure #47: Care Plan Advance Directives Established: No Advance Directives Information Provided To Patient: No Advance Directives on File: No Living Will: Yes (TRUST) Power of Laborer Hoisting: Yes Power of Laborer Hoisting Name: MARYA CONWAY Advance Care Planning: <Care Plan/Decision Maker Documented; Discussed & Documented> [1123F] - Elder Abuse Suspicion Index Screening: Elder Abuse Suspicion Index Screening Rely on people for bathing, dressing, shopping, banking, etc: No Prevented from getting food, clothes, medication, etc: No Made to feel shamed or threatened by someone: No Forced to sign papers or use money against will: No Feel afraid, touched in ways not wanted or hurt physically: No Poor eye contact, withdrawn, malnourished, cuts or bruises: No Screening Result: Negative result EASI Reference Information: Willa GARCIA, Melinda C, Deuce D, Jennifer Rivas.Development and validation of a tool to assist physicians identification of elder abuse: The Elder Abuse Suspicion Index (EASI ). Journal of Elder Abuse and Neglect, 2008; 20 (3): 276-300. - Elder Maltreatment Screen Quality Measures: Elder Maltreatment Screen and Follow-Up Plan Elder Maltreatment Screen: <Negative, No Follow-Up Plan Required> [G8734]
--- NOTE | 2018-09-07 15:16 | Physical Therapy Tx Note ---
Physical Therapy Tx Note - Treatment Note Tolerated: Good Total Time Spent With Patient: 15 Physical Therapy Tx Note: Detail (Patient states feeling good this afternoon. Patient was seated in chair upon GREEN TIRE INSPECTOR arrival. Patient transferred sit to and from stand independently. Patient ambulated 176 feet x2 with four wheeled walker SBA x1 with 2L portable oxygen. Patient ascended and descended 3 steps SBA x1 with 2L portable oxgyen. Patient transferred sit to and from stand independently. Patient ambulated 13 feet without assistive device SBA x1 with 1.5L oxygen. Patient tolerated treatment well. Patient reports feeling tired after ambulating stairs. Patient displays some shortness of breath with ambulation, and ascending and descending stairs. Patient was left in bathroom with pull cord within reach.) Physical Therapy Problem List: Detail (1) Shortness of breath with ambulation/ all physical activity 2) Assistance with sit to stand transfer from low surface 3) Decreased LE strength R LE greater then L. 4) Decreased ability to complete physical activity) Physical Therapy Goals: 1) Assess the patient's balance using objective balance testing.(Goal Met). 2)Assess the patient's bed mobility (NA- patient sleeps in recliner). 3) The patient will ambulate with appropriate assistive device independently distances of 100 feet plus with minimal shortness of breath.(Goal Met). 4) The patient will be independent with all transfers and bed mobility ( Goal Met). 5)The patient will tolerate 20 to 30 minutes of physical activity with one to two rest periods. 6) Increase LE strength 1/3 muscle grade to improve stability of gait pattern. Prognosis: Good Physical Therapy Plan: PT 1 to 2 times a day for gait training, bed mobility, transfer training, LE strengthening and muscular endurance exercises.
[2018-09-08] MEDS ORDERED: PREDNISONE 10 MG TAB PO SCH (08:00)
--- NOTE | 2018-09-10 11:42 | Rehab Discharge Summary ---
Patient Information - Patient Information Diagnosis: deconditioning Ordered Treatment: PT Evaluate and Treat Surgery: No Past Medical/Surgical Hx: PAST MEDICAL/SURGICAL HISTORY Past Surgical History Hysterectomy, , Carotid artery with stent, colon resection (d/t adhesions), heart cath 2018 PMH - Respiratory Hx Respiratory Disorders Yes Hx Bronchitis Yes Hx Chronic Obstructive Yes Pulmonary Disease (COPD) Hx Pneumonia Yes Hx of SOB Yes Comment: November 2015-GUI collapsed, intubated x 24hrs. PMH - Cardiovascular Hx Cardiovascular Disorders Yes Hx Abnormal EKG Yes Hx Irregular Heartbeat Yes Hx Coronary Artery Disease Yes Hx Heart Murmur Yes: no problems Comment: carotid artery stent, murmur PMH - Neuro Hx Neurological Disorders No Hx Seizures No Comment: Rt Sided carotid stent PMH - GI Hx Gastrointestinal Disorders Yes Hx Obstructive Bowel Yes: d/t adhesions PMH - Hx Genitourinary Disorders No PMH - Endocrine Hx Endocrine Disorders No Hx Diabetes N/A Hx Thyroid Disease Yes: overactive thyroid PMH - Musculoskeletal Hx Musculoskeletal Disorders Yes Hx Arthritis Yes Hx Gout Yes: x 1 Hx Osteoporosis Yes PMH - Psych Hx Psychiatric Problems Yes Hx Anxiety Yes Hx Depression Yes PMH - Hematology/Oncology Hx Hematology/Oncology No Disorders Premorbid Status: Detail (Pt lives with son in a 1 story house with basement. She has 3 steps at the entrance onto a deck and 1 step into the kitchen with padmini railings. She has a tub/shower combination with shower seat and hand held shower, no grab bars and an elevated toilet, no grab bars. Pt and son shared home mgmt and meal prep, son was responsible for laundry. She ambulated without an assistive device but owns a 4 wheeled walker. She uses 1 1/2 liters of oxygen at night.) Social History: Detail (Pt has a supportive family.) Precautions: [place], Fall, Other (Using 1 1/2 liters of oxygen) Subjective Information - Subjective Information Per Patient (The patient has no complaints of pain. The patient reports her LE' s still feel weak when she's ambulating but not as "rubbery" as initially.) Objective Data - Mental Status Patient Orientation: Oriented x3 - Visual Perception Appears within normal limits for therapeutic activities - ROM Within normal limits - Strength/Tone Not within normal limits (The patient's LE strength was bilateral hip flexors 4/ 5, hip abductors and adductors 4+/5, knee extensors L 4/5, R 4+/5, knee flexors 4/5, ankle musculature 4+/5.) - Bed Mobility Independent (The patient sleeps in recliner at home.) - Transfers Independent (The patient was independent with sit to and from stand transfer, toilet transfer and tub transfer (stepping over tub).) - Balance Balance Sitting: Good Balance Standing: Fair (The patient's balance using the Tinetti Assessment Tool was 21/28 which is in the moderate for falls category.) - Gait Detail (The patient ambulated with 4 wheeled walker a distance of 176 feet x 2 with 1.5 L of O2 with assistance with equipment only. The patient ambulated on steps with use of railing with supervision for safety only.) Therapy Assessment - Therapy Assessment Detail (The patient exhibited increased LE strength in most muscle groups and was independent with transfers and ambulation. The patient is to recieve Home Rehab services to assess safety in the home environment and continue to improve LE strength, balance and ability to complete prolonged physical activity.) Patient Education - Patient Education Teaching Topic: Exercise/Activity (The patient was independent with a home exercise program of LE strengthening exercises. The patient was also independent with deep breathing techniques.) Response: Return Demonstration Teaching Method: Demonstration, Handout Teaching Recipient: Patient Barriers To Learning: None Problem List - Problem List Physical Therapy Problem List: Detail (1) Shortness of breath with ambulation/ all physical activity 2) Assistance with sit to stand transfer from low surface 3) Decreased LE strength R LE greater then L. 4) Decreased ability to complete physical activity) Occupational Therapy Problem List: Detail (1. Decreased Ind with total body dressing. 2. Decreased Ind with showering in sitting. 3. Decreased activity tolerance needed for safe and Ind self cares and IADLs.) Goals - Goals Physical Therapy Goals: 1) Assess the patient's balance using objective balance testing.(Goal Met). 2)Assess the patient's bed mobility (NA- patient sleeps in recliner). 3) The patient will ambulate with appropriate assistive device independently distances of 100 feet plus with minimal shortness of breath.(Goal Met). 4) The patient will be independent with all transfers and bed mobility ( Goal Met). 5)The patient will tolerate 20 to 30 minutes of physical activity with one to two rest periods. 6) Increase LE strength 1/3 muscle grade to improve stability of gait pattern. Occupational Therapy Goals: 1. Pt will be Ind with total body dressing using energy conservation techniques. 2. Pt will be Ind with showering in sitting using energy conservation techniques. 3. Pt will demonstrate improved endurance to allow safe and Ind self cares. Plan - Plan Physical Therapy Plan: The patient was discharged from [facility] to home. The patient is to receive Home PT/OT. Occupational Therapy Plan: OT 2-4 days per week to address goals and problem list. Thank you for this referral.
--- NOTE | 2018-09-11 11:10 | Rehab Discharge Summary ---
Patient Information - Patient Information Diagnosis: deconditioning Ordered Treatment: OT Evaluate and Treat Surgery: No Past Medical/Surgical Hx: PAST MEDICAL/SURGICAL HISTORY Past Surgical History Hysterectomy, , Carotid artery with stent, colon resection (d/t adhesions), heart cath 2018 PMH - Respiratory Hx Respiratory Disorders Yes Hx Bronchitis Yes Hx Chronic Obstructive Yes Pulmonary Disease (COPD) Hx Pneumonia Yes Hx of SOB Yes Comment: November 2015-GUI collapsed, intubated x 24hrs. PMH - Cardiovascular Hx Cardiovascular Disorders Yes Hx Abnormal EKG Yes Hx Irregular Heartbeat Yes Hx Coronary Artery Disease Yes Hx Heart Murmur Yes: no problems Comment: carotid artery stent, murmur PMH - Neuro Hx Neurological Disorders No Hx Seizures No Comment: Rt Sided carotid stent PMH - GI Hx Gastrointestinal Disorders Yes Hx Obstructive Bowel Yes: d/t adhesions PMH - Hx Genitourinary Disorders No PMH - Endocrine Hx Endocrine Disorders No Hx Diabetes N/A Hx Thyroid Disease Yes: overactive thyroid PMH - Musculoskeletal Hx Musculoskeletal Disorders Yes Hx Arthritis Yes Hx Gout Yes: x 1 Hx Osteoporosis Yes PMH - Psych Hx Psychiatric Problems Yes Hx Anxiety Yes Hx Depression Yes PMH - Hematology/Oncology Hx Hematology/Oncology No Disorders Premorbid Status: Detail (Pt lives with son in a 1 story house with basement. She has 3 steps at the entrance onto a deck and 1 step into the kitchen with padmini railings. She has a tub/shower combination with shower seat and hand held shower, no grab bars and an elevated toilet, no grab bars. Pt and son shared home mgmt and meal prep, son was responsible for laundry. She ambulated without an assistive device but owns a 4 wheeled walker. She uses 1 1/2 liters of oxygen at night.) Social History: Detail (Pt has a supportive family.) Precautions: [place], Fall, Other (Using 1 1/2 liters of oxygen) Subjective Information - Subjective Information Per Patient Objective Data - Pain Pain Present: No - Mental Status Patient Orientation: Oriented x3 - Visual Perception Appears within normal limits for therapeutic activities - ROM Not within normal limits (Right shoulder flexion limited to 90 degrees due to premorbid injury. Remaining UE AROM WNL.) - Strength/Tone Not within normal limits (Right shoulder flexion 2-/5, left shoulder flexion 4/5 , padmini elbow flexion 4/5, padmini elbow extension 4+/5, padmini mine analyst 4/5) - Coordination Appears within normal limits for therapeutic activities - Bed Mobility Independent (Ind with supine to sit.) - Transfers Independent (Ind with sit to stand from various surfaces.) - Balance Balance Sitting: Good Balance Standing: Fair - Sensation Intact - Gait Detail (Pt ambulating with 4 wheeled walker Indly.) - ADL's/IADL's Detail (Pt is Ind with showering in sitting, she requires assist for washing hair due to shortness of breath. Pt uses 1 1/2 liters of oxygen at all times. She is Ind with total body dressing. She was able to simulate kitchen activity but declined completion of meal prep.) Therapy Assessment - Therapy Assessment Detail (Pt is Ind with use of breathing techniques and energy conservation techniques for self cares and IADLs.) Problem List - Problem List Physical Therapy Problem List: Detail (1) Shortness of breath with ambulation/ all physical activity 2) Assistance with sit to stand transfer from low surface 3) Decreased LE strength R LE greater then L. 4) Decreased ability to complete physical activity) Occupational Therapy Problem List: Detail (1. Decreased Ind with total body dressing. 2. Decreased Ind with showering in sitting. 3. Decreased activity tolerance needed for safe and Ind self cares and IADLs.) Goals - Goals Physical Therapy Goals: 1) Assess the patient's balance using objective balance testing.(Goal Met). 2)Assess the patient's bed mobility (NA- patient sleeps in recliner). 3) The patient will ambulate with appropriate assistive device independently distances of 100 feet plus with minimal shortness of breath.(Goal Met). 4) The patient will be independent with all transfers and bed mobility ( Goal Met). 5)The patient will tolerate 20 to 30 minutes of physical activity with one to two rest periods. 6) Increase LE strength 1/3 muscle grade to improve stability of gait pattern. Occupational Therapy Goals: Goals Met: 1. Pt will be Ind with total body dressing using energy conservation techniques. 2. Pt will be Ind with showering in sitting using energy conservation techniques. Goal partially met: 3. Pt will demonstrate improved endurance to allow safe and Ind self cares. Prognosis - Prognosis Good Plan - Plan Physical Therapy Plan: The patient was discharged from [facility] to home. The patient is to receive Home PT/OT. Occupational Therapy Plan: Pt discharged home on 09/07/18 with home OT/PT.
== END 2018-09-07 16:15 | disposition home health service (06) | DRG 947 ==
LOC: MEDSURG 14:12
PROVIDERS: ADMIT Internal Medicine; ATTEND Internal Medicine
DX: R53.81 Other malaise (principal); J18.9 Pneumonia, unspecified organism; I22.9 Subsequent ST elevation (STEMI) myocardial infarction of unspecified site; I21.9 Acute myocardial infarction, unspecified; J96.90 Respiratory failure, unspecified, unspecified whether with hypoxia or hypercapnia; J44.9 Chronic obstructive pulmonary disease, unspecified; J43.9 Emphysema, unspecified; E78.5 Hyperlipidemia, unspecified; Z87.891 Personal history of nicotine dependence; Z95.5 Presence of coronary angioplasty implant and graft; R01.1 Cardiac murmur, unspecified; M19.90 Unspecified osteoarthritis, unspecified site
CPT/HCPCS: 90715; 90732; 94640; 94760; 94761; 97110; 97530; 97535; 99306; 99309; 99315; J1650; J7512; J7613

== ENCOUNTER 2018-12-16 13:14 | Inpatient (IN) | payer MEDICARE, BC ==
[2018-12-16] MEDS: BREO (FLUTICASONE/VILANTEROL) 200MCG/25MCG INHALER INH SCH (09:30)
[2018-12-16] MEDS: UMECLIDINIUM BROMIDE (INCRUSE) 62.5MCG IH SCH (09:30)
[~2018-12-16 13:14] MED LIST: ALBUTEROL SULFATE (0.083%) 2.5 MG/3 ML NEB INH PRN
[2018-12-16] MEDS: CARVEDILOL 3.125 MG TABLET PO SCH ×2 (14:30→21:35)
[2018-12-16] MEDS: BIFIDOBACTERIUM INFANTIS 4 MG CAPSULE PO SCH (14:30)
[2018-12-16] MEDS: ASPIRIN 81 MG TABEC PO SCH (14:30)
[2018-12-16] MEDS: DALIRESP 500 MCG PO SCH (14:33)
[2018-12-16] MEDS: ESCITALOPRAM 10 MG TABLET PO SCH (14:33)
[2018-12-16] MEDS: DRONABINOL 2.5 MG CAPSULE PO SCH ×2 (14:34→17:39)
[2018-12-16] MEDS: EVISTA 60 MG PO SCH (14:34)
[2018-12-16] MEDS: VANCOMYCIN HCL 1 GM VIAL PO SCH ×2 (14:34→17:39)
[2018-12-16] MEDS: EZETIMIBE 10 MG TABLET PO SCH (21:35)
[2018-12-16] MEDS: SIMVASTATIN 20 MG TABLET PO SCH (21:35)
[2018-12-17] MEDS: VANCOMYCIN HCL 1 GM VIAL PO SCH ×4 (00:02→18:04)
[2018-12-17] MEDS: BIFIDOBACTERIUM INFANTIS 4 MG CAPSULE PO SCH (09:21)
[2018-12-17] MEDS: ESCITALOPRAM 10 MG TABLET PO SCH (09:22)
[2018-12-17] MEDS: ASPIRIN 81 MG TABEC PO SCH (09:22)
[2018-12-17] MEDS: CARVEDILOL 3.125 MG TABLET PO SCH ×2 (09:22→22:07)
[2018-12-17] MEDS: DALIRESP 500 MCG PO SCH (09:23)
[2018-12-17] MEDS: EVISTA 60 MG PO SCH (09:23)
--- NOTE | 2018-12-17 09:55 | Rehab Evaluation ---
Patient Information - Patient Information Diagnosis: Deconditioning secondary to C-Diff., failure to thrive/wgt Ordered Treatment: PT Evaluate and Treat Status: Initial Evaluation Past Medical/Surgical Hx: PAST MEDICAL/SURGICAL HISTORY Past Surgical History Hysterectomy, , Carotid artery with stent, colon resection (d/t adhesions), heart cath 2018 PMH - Respiratory Hx Respiratory Disorders Yes Hx Bronchitis Yes Hx Chronic Obstructive Yes Pulmonary Disease (COPD) Hx Pneumonia Yes Hx of SOB Yes Comment: November 2015-GUI collapsed, intubated x 24hrs. PMH - Cardiovascular Hx Cardiovascular Disorders Yes Hx Abnormal EKG Yes Hx Irregular Heartbeat Yes Hx Coronary Artery Disease Yes Hx Heart Murmur Yes: no problems Comment: carotid artery stent, murmur PMH - Neuro Hx Neurological Disorders No Hx Seizures No Comment: Rt Sided carotid stent PMH - GI Hx Gastrointestinal Disorders Yes Hx Obstructive Bowel Yes: d/t adhesions PMH - Hx Genitourinary Disorders No PMH - Endocrine Hx Endocrine Disorders No Hx Diabetes N/A Hx Thyroid Disease Yes: overactive thyroid PMH - Musculoskeletal Hx Musculoskeletal Disorders Yes Hx Arthritis Yes Hx Gout Yes: x 1 Hx Osteoporosis Yes PMH - Psych Hx Psychiatric Problems Yes Hx Anxiety Yes Hx Depression Yes PMH - Hematology/Oncology Hx Hematology/Oncology No Disorders Premorbid Status: Detail (Prior to admission, the patient was independent with self care. The patient was ambulatory without a device household distances with 1 L of O2. The patient does have a 4WW available.) Social History: Detail (The patient lives with son in a one story house with basement. At the enterance there are 3 steps that take you up onto a deck and then 1 more step into kitchen with bilateral hand rails. Patient has a tub/shower combination with a shower seat and hand held shower head and an elevated toilet . There are not grab bars in the bathroom. Pt. and son share home management and meal prep tasks. The patient's son completes laundry.) Precautions: [place], Fall, Other (C-diff precautions) - Time With Patient Total Time Spent With Patient (Min): 30 Treatment Procedures: Detail (Initial Evaluation, LE muscular endurance exercises including the following: red T-band hip abduction and hamstring curls, ankle pumps, hip adductor squeezes and LAQ all x 15 reps. The patient required 3 rest periods and O2 sat level dropped to SpO2 83-85 with 3 to 4 minute recovery period to return to 88/90. Patient completed exercisies with 1 L of O2.) Subjective Information - Subjective Information Per Patient (The paient had no complaints of pain, but did complain of fatigue.) Objective Data - Mental Status Patient Orientation: Oriented x3 - Visual Perception Appears within normal limits for therapeutic activities - ROM Within normal limits (LE AROM is WNL.) - Strength/Tone Not within normal limits (The mag's LE strength is generally 4+ to 5/5 except for bilateral hip extensors 4-/5, hip flexors 4/5, R knee flexors 4/5).) - Bed Mobility Independent (The patient was independent with supine to and from sit and scooting up in bed.) - Transfers Independent (The patient was independent with sit to and from stand transfer.) - Balance Balance Sitting: Good Balance Standing: Good (Did not test the patient's balance with formal objective balance test.) - Sensation Intact - Gait Detail (The patient ambulated in room without device and 1 L of O2 a distance of 55 feet x 1. SpO2 dropped to 83 after ambulation. The patient required a 5 minute rest period to return 90.) Therapy Assessment - Therapy Assessment Detail (The patient exhibits weakness in some LE muscle groups and decreased ability to complete prolonged physical activity. Feel the patient would benefit from PT to return to previous functional.) Problem List - Problem List Physical Therapy Problem List: Detail (1)Weakness in hip flexors, extensors and R hamstrings 2) Decreased ability to complete prolonged physical activity 3) Shortness of breath and SpO2 decrease to the 80's with activity) Goals - Goals Physical Therapy Goals: 1) Evaluate the patient's balance with use of an objective balance scale. 2) The paient will ambulate distances of 100 feet and plus independently on 1L of O2 maintaining SpO2 level to 90 and above. 3) The patient will tolerate 30 minutes of physical activity with one to two rest periods. Prognosis - Prognosis Good Plan - Plan Physical Therapy Plan: PT 1-2 times a day M-F for LE strengthening and muscular endurance exercises, mild aerobic exercises and gait training distances.
--- NOTE | 2018-12-17 10:32 | Swing Bed Certification/Recert ---
Initial Certification Due: 12/16/18 14 Day Re-Cert Due: 12/30/18 44 Day Re-Cert Due: 01/29/19 74 Day Re-Cert Due: 02/28/19 CERTIFICATION CERTIFICATION OF PATIENT ADMISSION Required at time of admission. Due: 12/16/18 I certify that SNF services are required to be given on an inpatient basis because of the above named patient's need for long-term care on a continui ng basis for the condition(s) for which he/she was receiving inpatient hospital services prior to his/her transfer to the SNF. The patient's current needs for skilled care includes: [PT/OT for decond itioning/failure to thrive in adult] Farrah Desai, N.P. 12/16/18
--- NOTE | 2018-12-17 10:41 | History & Physical ---
History of Present Illness - Date Date of Service for History & Physical: 12/17/18 - History of Present Illness Admitting Diagnosis: deconditioning due to C Diff infection History of Present Illness: Pt. presented to her PCP appointment on 12/13 for a f/u of COPD and c/o persistent diarrhea with occasional abdominal pain/cramping due to a d-diff infection for 4 months. She had lost 4 pounds since 11/14/18, and 30 pounds since 09/06/18. Her history includes: ex-smoker, COPD emphysema, home oxygen dependent, mixed hyperlipidemia, and AZUCENA. She was directly admitted for c-diff, failed outpatient treatment, dehydration, weight loss, anorexia, and failure to thrive. Labs ordered, TSH low <0.01. Nutrition consult ordered, high calorie/high protein diet ordered. PT/OT eval ordered. Thyroid u/s demonstrated sm nodule, recommend f/u u/s in 1 year. CRP and ESR wnl- r/o thyroiditis as cause of low TSH. Thyroid uptake scan ordered, will complete during swing bed admission and refer to endocrinology for poss ablation. Patient received IV hydration, lab monitoring, PO vanco, pt. was moved to swing bed on 12/16 for continued PT/OT for failure to thrive and weakness associated with weight loss/anorexia. PCP: MILANA Reza General - Cognitive Patterns Orientation: Oriented x3 - Communication Preferred Language?: [place] Domestic Violence Advocate Required: No Level of Education: College Preferred Method of Learning: Seeing, Doing, Reading Comprehension Ability: No Impairment Able to Read: Yes Able to Write: Yes Select best description of speech pattern: Clear Speech Ability to express ideas and wants: Understood Understanding verbal content: Understands - Psychosocial Well-Being Usual Living Arrangement: Children - Dental Status Unable to examine: No Broken or loosely fitting full or partial dentures: No No natural teeth or tooth fragment(s) (edentulous): No Abnormal mouth tissue (ulcers, masses, oral lesions, etc.): No Obvious or likely cavity or broken natural teeth: No Inflamed or bleeding gums or loose natural teeth: No Mouth/facial pain, discomfort or difficulty chewing: No - Nutrition Screening Poor oral intake > 1 week: Yes Unplanned weight loss in specified time frame: Yes Nutrition Support via tube feedings or parenteral nutrition: No Pressure Ulcer: No Significantly underweight define as BMI <18.5 kg/m2: Yes Albumin <2.5mg/dL: No Persistent nausea/vomiting/diarrhea >3 days: Yes Difficulty chewing/swallowing/mouth sores: No Admitting Diagnosis: Yes Nutrition Risk Score: High Risk Review of Systems Reviewed: No additional complaints except as noted below Constitutional: Reports: Weakness, Weight change. Denies: Chills, Fever, Malaise, Night sweats Eyes: Reports: As per HPI. Denies: Eye discharge, Eye pain, Photophobia, Vision change ENT: Reports: As per HPI. Denies: Congestion, Dental pain, Ear pain, Epistaxis, Hearing loss, Throat pain Respiratory: Reports: As per HPI. Denies: Cough, Dyspnea, Hemoptysis, Stridor, Wheezes Cardiovascular: Reports: As per HPI. Denies: Arrhythmia, Chest pain, Dyspnea on exertion, Edema, Murmurs, Orthopnea, Palpitations, Paroxysmal nocturnal dyspnea, Rheumatic Fever, Syncope Endocrine: Reports: As per HPI. Denies: Fatigue, Heat or cold intolerance, Poly dipsia, Polyuria Gastrointestinal: Reports: Diarrhea. Denies: Abdominal pain, Constipation, Hematemesis, Hematochezia, Melena, Nausea, Vomiting Genitourinary: Reports: As per HPI. Denies: Abnormal menses, Discharge, Dyspareunia, Dysuria, Frequency, Hematuria, Incontinence, Retention, Urgency Musculoskeletal: Reports: As per HPI. Denies: Arthralgia, Back pain, Gout, Joint swelling, Myalgia, Neck pain Skin: Reports: As per HPI. Denies: Bruising, Change in color, Change in hair/nails, Lesions, Pruritus, Rash Neurological: Reports: As per HPI. Denies: Abnormal gait, Confusion, Headache, Numbness, Paresthesias, Seizure, Tingling, Tremors, Vertigo, Weakness Psychiatric: Reports: As per HPI. Denies: Anxiety, Auditory hallucinations, Depression, Homicidal thoughts, Suicidal thoughts, Visual hallucinations Hematological/Lymphatic: Reports: As per HPI. Denies: Anemia, Blood Clots, Easy bleeding, Easy bruising, Swollen glands Past Medical History - SOCIAL HISTORY Smoking Status: Former smoker - SURGICAL HISTORY Past Surgical History: Hysterectomy, ,. Carotid artery with stent,. colon resection (d/t adhesions),. heart cath 2019 - RESPIRATORY Hx Respiratory Disorders: Yes Hx Bronchitis: Yes Hx COPD: Yes Hx Pneumonia: Yes Comment:: November 2015-GUI collapsed, intubated x 24hrs. - CARDIOVASCULAR Hx Cardio Disorders: Yes Hx Abnormal EKG: Yes Hx Irregular Heartbeat: Yes Comment:: carotid artery stent, murmur - NEURO Hx Neuro Disorders: No Hx Seizures: No - GI Hx GI Disorders: Yes Hx Obstructive Bowel: Yes (d/t adhesions) - Hx Genitourinary Disorders: No - ENDOCRINE Hx Endocrine Disorders: No Hx Diabetes: (N/A) - MUSCULOSKELETAL Hx Musculoskeletal Disorders: Yes Hx Arthritis: Yes Hx Gout: Yes (x 1) Hx Osteoporosis: Yes - PSYCH Hx Psych Problems: Yes Hx Anxiety: Yes - HEMATOLOGY/ONCOLOGY Hx Hematology/Oncology Disorders: No Family Medical History Any Significant Family History?: No Hx Cancer: Mother, Brother/Sister *Cancer Comment: uterine Hx Diabetes: Father, Mother, Brother/Sister Hx Heart Disease: Father Hx Stroke: Mother H&P Meds/Allergies - Allergies Allergies: Allergies Allergy/AdvReac Type Severity Reaction Status Date / Time No Known Drug Allergies Allergy Unverified 12/13/18 13:47 - Home Medications Previous Rx's Medication Instructions Recorded Albuterol Sulfate 0.083% [Neb] 3 ml NEB .EVERY 4-6 HOURS PRN #180 08/24/17 [Albuterol Sulfate] ml Aspirin Enteric-Coated [Ecotrin 81 mg PO DAILY tabec 08/24/17 (EC)] Fluticasone/Vilanterol 200/25 1 puff INH DAILY 30 Days #1 inhaler 09/07/18 [Breo Ellipta 200-25 Mcg INH] - Active Medications Active Medications: Current Medications Albuterol Sulfate (Albuterol Sulfate) 2.5 mg INH Q4H PRN PRN Reason: DIFFICULTY IN BREATHING Aspirin (Ecotrin (Ec)) 81 mg PO DAILY [facility] Last Admin: 12/17/18 09:22 Dose: 81 mg Documented by: Carvedilol (Coreg) 3.125 mg PO BID [facility] Last Admin: 12/17/18 09:22 Dose: 3.125 mg Documented by: Dronabinol (Dronabinol) 2.5 mg PO 1130,1700 [facility] Last Admin: 12/16/18 17:39 Dose: 2.5 mg Documented by: Ezetimibe (Zetia) 10 mg PO QHS [facility] Last Admin: 12/16/18 21:35 Dose: 10 mg Documented by: Escitalopram Oxalate (Lexapro) 20 mg PO DAILY [facility] Last Admin: 12/17/18 09:22 Dose: 20 mg Documented by: Patient Own Med: (Evista 60 Mg) 1 each PO DAILY [facility] Last Admin: 12/17/18 09:23 Dose: 1 each Documented by: Patient Own Med: (Daliresp 500 Mcg) 1 each PO DAILY [facility] Last Admin: 12/17/18 09:23 Dose: 1 each Documented by: Simvastatin (Zocor) 80 mg PO QHS [facility] Last Admin: 12/16/18 21:35 Dose: 80 mg Documented by: Vancomycin HCl (Vancomycin Hcl) 125 mg PO Q6HR [facility] Stop: 12/21/18 12:01 Last Admin: 12/17/18 06:24 Dose: 125 mg Documented by: Physical Exam - Vital Signs Vital Signs: Vital Signs - Last 24 Hrs Temp Pulse Resp BP BP Pulse Ox 12/17/18 09:39 98.8 F 126/59 12/17/18 07:38 98.8 F 95 H 18 126/59 91 L 12/16/18 20:00 98.9 F 104 H 20 101/50 89 L 12/16/18 15:00 91 H 20 109/47 12/16/18 13:20 98.7 F 94 H 18 91/42 90 L - General General Appearance: Alert, Oriented x3, Cooperative, No acute distress Limitations: Other (malnourished appearance) - Head Head exam: Normal inspection - Eye Eye exam: Normal appearance, PERRL Pupils: Normal accommodation - ENT ENT exam: Normal exam, Mucous membranes moist, Normal external ear exam, Normal orophraynx, TM's normal bilaterally Ear exam: Normal external inspection. negative: External canal tenderness Nasal Exam: Normal inspection. negative: Discharge, Sinus tenderness Mouth exam: Normal external inspection, Tongue normal Teeth exam: Normal inspection. negative: Dental caries Throat exam: Normal inspection. negative: Tonsillar erythema, Tonsillar exudate - Neck Neck exam: Normal inspection, Full ROM. negative: Tenderness - Respiratory Respiratory exam: Decreased breath sounds. negative: Respiratory distress - Cardiovascular Cardiovascular Exam: Regular rate, Normal rhythm, Normal heart sounds - GI/Abdominal GI/Abdominal exam: Soft, Normal bowel sounds. negative: Tenderness - Rectal Rectal exam: Deferred - exam: Deferred - Extremities Extremities exam: Normal inspection, Full ROM, Normal capillary refill. negative: Tenderness - Back Back exam: Reports: Normal inspection, Full ROM. Denies: Muscle spasm, Rash noted, Tenderness - Neurological Neurological exam: Alert, Normal gait, Oriented X3, Reflexes normal - Psychiatric Psychiatric exam: Normal affect, Normal mood - Skin Skin exam: Dry, Intact, Normal color, Warm Discharge Potential - Discharge Needs Community Services Used Prior to Admission: Oxygen Therapy Patient Discharge Plan Description: Return Home Community Services Needed at Discharge: Oxygen Therapy Plan - Swing Bed Certification Initial Certification Due: 12/16/18 14 Day Re-Cert Due: 12/30/18 44 Day Re-Cert Due: 01/29/19 74 Day Re-Cert Due: 02/28/19 - Detailed Diagnosis and Plan (1) Physical deconditioning Current Visit: No Status: Acute Base Code: R53.81 - OTHER MALAISE Comment: 12/17/18 -independent for ADLs using O2 and 4-wheeled walker -Increased strength, balance, and endurance -Continue PT/OT M-F (2) Failure to thrive in adult Current Visit: No Status: Acute Base Code: R62.7 - ADULT FAILURE TO THRIVE Comment: 12/17/18: -30lb wt. loss since August 2018 secondary to c. diff -PT/OT eval and nutritional consults completed (3) Graves disease Current Visit: No Status: Acute Base Code: E05.00 - THYROTOXICOSIS W DIFFUSE GOITER W/O THYROTOXIC CRISIS Comment: 12/17/18: -TSH <0.01, Free T4 2.67, total T3 pending -hx of Graves, no treatment for >10 years per pt, no hx of ablation -thyroid US done 12/14, sm nodule, recommend f/u US in 1 year -Thyroid uptake scan ordered to be done Tuesday 12/19 with referral to endocrinology OP (4) C. difficile diarrhea Current Visit: No Status: Acute Base Code: A04.72 - ENTEROCOLITIS D/T CLOSTRIDIUM DIFFICILE, NOT SPCF RECUR Comment: 12/17/18: -c diff for 4mo, failed OP treatment -Vanco dosing per pharmacy -isolation precautions in place -tolerating PO well (5) COPD (chronic obstructive pulmonary disease) Current Visit: No Status: Chronic Qualifiers: COPD type: unspecified COPD Qualified Code(s): J44.9 - Chronic obstructive pulmonary disease, unspecified Base Code: J44.9 - CHRONIC OBSTRUCTIVE PULMONARY DISEASE, UNSPECIFIED Comment: 12/17/18: -Pt has home O2 -Continue home medication regimen of Jessica (6) Full code status Current Visit: No Status: Acute Base Code: Z78.9 - OTHER SPECIFIED HEALTH STATUS Comment: 12/17/18: -patient is full code.
[2018-12-17] MEDS: BREO (FLUTICASONE/VILANTEROL) 200MCG/25MCG INHALER INH SCH (11:41)
[2018-12-17] MEDS: UMECLIDINIUM BROMIDE (INCRUSE) 62.5MCG IH SCH (11:41)
[2018-12-17] MEDS: DRONABINOL 2.5 MG CAPSULE PO SCH ×2 (11:55→16:51)
--- NOTE | 2018-12-17 14:06 | Rehab Evaluation ---
Patient Information - Patient Information Diagnosis: Deconditioning secondary to C-Diff., failure to thrive/wgt Ordered Treatment: OT Evaluate and Treat Status: Initial Evaluation Surgery: No Past Medical/Surgical Hx: PAST MEDICAL/SURGICAL HISTORY Past Surgical History Hysterectomy, , Carotid artery with stent, colon resection (d/t adhesions), heart cath 2018 PMH - Respiratory Hx Respiratory Disorders Yes Hx Bronchitis Yes Hx Chronic Obstructive Yes Pulmonary Disease (COPD) Hx Pneumonia Yes Hx of SOB Yes Comment: November 2015-GUI collapsed, intubated x 24hrs. PMH - Cardiovascular Hx Cardiovascular Disorders Yes Hx Abnormal EKG Yes Hx Irregular Heartbeat Yes Hx Coronary Artery Disease Yes Hx Heart Murmur Yes: no problems Comment: carotid artery stent, murmur PMH - Neuro Hx Neurological Disorders No Hx Seizures No Comment: Rt Sided carotid stent PMH - GI Hx Gastrointestinal Disorders Yes Hx Obstructive Bowel Yes: d/t adhesions PMH - Hx Genitourinary Disorders No Patient No PMH - Endocrine Hx Endocrine Disorders No Hx Diabetes N/A Hx Thyroid Disease Yes: overactive thyroid PMH - Musculoskeletal Hx Musculoskeletal Disorders Yes Hx Arthritis Yes Hx Gout Yes: x 1 Hx Osteoporosis Yes PMH - Psych Hx Psychiatric Problems Yes Hx Anxiety Yes Hx Depression Yes PMH - Hematology/Oncology Hx Hematology/Oncology No Disorders Premorbid Status: Detail (Prior to admission, the patient was independent with self care. The patient was ambulatory without a device household distances with 1 L of O2. The patient does have a 4WW available.) Social History: Detail (The patient lives with son in a one story house with basement. At the entrance there are 3 steps that take you up onto a deck and then 1 more step into kitchen with bilateral hand rails. Patient has a tub/shower combination with a shower seat and hand held shower head and an elevated toilet. There are no grab bars in the bathroom. Pt reports her son is responsible for the majority of meal prep and laundry and she washes dishes. She reports her daughter assists with home mgmt tasks.) Precautions: [place], Fall, Other (Isolation precautions) - Time With Patient Total Time Spent With Patient (Min): 35 Treatment Procedures: Detail (OT eval low complexity) Subjective Information - Subjective Information Per Patient Objective Data - Pain Pain Present: No - Mental Status Patient Orientation: Oriented x3 - Visual Perception Appears within normal limits for therapeutic activities - ROM Not within normal limits (Left UE AROM WNL, Right shoulder limited due to previous injury - shoulder flexion AROM approx 100 degrees, right elbow, wrist and hand AROM WNL.) - Strength/Tone Not within normal limits (Left UE 4/5, right shoulder not tested due to pain, right elbow flexion 3+/5, right elbow extension and stucco mason 4/5) - Coordination Appears within normal limits for therapeutic activities - Balance Balance Sitting: Good - Sensation Intact - ADL's/IADL's Detail (Pt reports she has not attempted self care tasks due to fatigue.) Therapy Assessment - Therapy Assessment Detail (Pt presents with significant shortness of breath with evaluation tasks, decreased Ind with self cares and decreased endurance.) Problem List - Problem List Physical Therapy Problem List: Detail (1)Weakness in hip flexors, extensors and R hamstrings 2) Decreased ability to complete prolonged physical activity 3) Shortness of breath and SpO2 decrease to the 80's with activity) Occupational Therapy Problem List: Detail (1. Decreased endurance needed for safe and Ind self cares. 2. Decreased right UE ROM and strength due to pain/premorbid injury. 3. Decreased Ind with self care tasks.) Goals - Goals Physical Therapy Goals: 1) Evaluate the patient's balance with use of an objective balance scale. 2) The paient will ambulate distances of 100 feet and plus independently on 1L of O2 maintaining SpO2 level to 90 and above. 3) The patient will tolerate 30 minutes of physical activity with one to two rest p eriods. Occupational Therapy Goals: 1. Pt will demonstrate improved endurance needed for safe and Ind ADLs. 2. Pt will demonstrate improved right UE strength and motion to allow functional use during ADLs/ADLs. 3. Pt will be safe and Ind with showering and total body dressing. Prognosis - Prognosis Good Plan - Plan Physical Therapy Plan: PT 1-2 times a day M-F for LE strengthening and muscular endurance exercises, mild aerobic exercises and gait training distances. Occupational Therapy Plan: OT 2-4 times per week to address self cares, UE function and overall activity tolerance to allow safe and Ind return home.
[2018-12-17] MEDS: EZETIMIBE 10 MG TABLET PO SCH (22:06)
[2018-12-17] MEDS: SIMVASTATIN 20 MG TABLET PO SCH (22:07)
[2018-12-18] MEDS: VANCOMYCIN HCL 1 GM VIAL PO SCH ×5 (00:55→23:15)
[2018-12-18] MEDS: BIFIDOBACTERIUM INFANTIS 4 MG CAPSULE PO SCH (09:47)
[2018-12-18] MEDS: CARVEDILOL 3.125 MG TABLET PO SCH ×2 (09:48→21:19)
[2018-12-18] MEDS: ASPIRIN 81 MG TABEC PO SCH (09:48)
[2018-12-18] MEDS: ESCITALOPRAM 10 MG TABLET PO SCH (09:48)
[2018-12-18] MEDS: DALIRESP 500 MCG PO SCH (09:49)
[2018-12-18] MEDS: EVISTA 60 MG PO SCH (09:50)
[2018-12-18] MEDS: UMECLIDINIUM BROMIDE (INCRUSE) 62.5MCG IH SCH (10:09)
[2018-12-18] MEDS: BREO (FLUTICASONE/VILANTEROL) 200MCG/25MCG INHALER INH SCH (10:09)
[2018-12-18] MEDS: DRONABINOL 2.5 MG CAPSULE PO SCH ×2 (12:10→17:05)
--- NOTE | 2018-12-18 13:04 | Occupational Therapy Tx Note ---
Occupational Therapy Tx Note - Treatment Note Occupational Therapy Treatment Note: Detail (Pt unable to participate in OT session today due to thyroid testing.) Occupational Therapy Problem List: Detail (1. Decreased endurance needed for safe and Ind self cares. 2. Decreased right UE ROM and strength due to pain/premorbid injury. 3. Decreased Ind with self care tasks.) Occupational Therapy Goals: 1. Pt will demonstrate improved endurance needed for safe and Ind ADLs. 2. Pt will demonstrate improved right UE strength and motion to allow functional use during ADLs/ADLs. 3. Pt will be safe and Ind with showering and total body dressing. Occupational Therapy Plan: OT 2-4 times per week to address self cares, UE function and overall activity tolerance to allow safe and Ind return home.
--- NOTE | 2018-12-18 15:07 | Physical Therapy Tx Note ---
Physical Therapy Tx Note - Treatment Note Tolerated: Good Total Time Spent With Patient: 30 Physical Therapy Tx Note: Detail (The patient was up in a chair when PT arrived. The patient shared with PT chair aerobic program she has been completing. The patient ambulated at a normal , faster speed x 2 lapsin room (20 feet) with 1 L of O2 without device with SpO2 dropping to 75. The patient's O2 was increased to 2L. The patient recovered to 90 after 4 minutes with pursed lip breathing techniques. The patient then ambulated without device 5 laps( 50 feet) at a slow speed with 2L of O2 SpO2 to 86. The patient's balance was tested using the Benavidez Balance Scale : 49/56-low risk for falls, however pt. does exhibit decreased posterior equilibrium response. The patient was fatigued after balance testing. The patient was instructed to complete her LE exercises later. O2 level was reduced to 1 L at rest and patient was able to maintain 90 SpO2.) Physical Therapy Problem List: Detail (1)Weakness in hip flexors, extensors and R hamstrings 2) Decreased ability to complete prolonged physical activity 3) Shortness of breath and SpO2 decrease to the 80's with activity) Physical Therapy Goals: 1) Evaluate the patient's balance with use of an objective balance scale. 2) The paient will ambulate distances of 100 feet and plus independently on 1L of O2 maintaining SpO2 level to 90 and above. 3) The patient will tolerate 30 minutes of physical activity with one to two rest periods. Physical Therapy Plan: PT 1-2 times a day M-F for LE strengthening and muscular endurance exercises, mild aerobic exercises and gait training distances.
[2018-12-18] MEDS: SIMVASTATIN 20 MG TABLET PO SCH (21:19)
[2018-12-18] MEDS: EZETIMIBE 10 MG TABLET PO SCH (21:19)
[2018-12-19] MEDS: VANCOMYCIN HCL 1 GM VIAL PO SCH ×4 (00:02→17:59)
[2018-12-19] MEDS: EVISTA 60 MG PO SCH (09:41)
[2018-12-19] MEDS: DALIRESP 500 MCG PO SCH (09:41)
[2018-12-19] MEDS: BIFIDOBACTERIUM INFANTIS 4 MG CAPSULE PO SCH (09:42)
[2018-12-19] MEDS: ASPIRIN 81 MG TABEC PO SCH (09:42)
[2018-12-19] MEDS: ESCITALOPRAM 10 MG TABLET PO SCH (09:42)
[2018-12-19] MEDS: CARVEDILOL 3.125 MG TABLET PO SCH ×2 (09:42→22:07)
[2018-12-19] MEDS: BREO (FLUTICASONE/VILANTEROL) 200MCG/25MCG INHALER INH SCH (10:16)
[2018-12-19] MEDS: UMECLIDINIUM BROMIDE (INCRUSE) 62.5MCG IH SCH (10:16)
--- NOTE | 2018-12-19 10:52 | Occupational Therapy Tx Note ---
Occupational Therapy Tx Note - Treatment Note Occupational Therapy Treatment Note: Detail (Attempted OT session in the am. Pt reports not feeling well. OT will check her status this afternoon.) Occupational Therapy Problem List: Detail (1. Decreased endurance needed for safe and Ind self cares. 2. Decreased right UE ROM and strength due to pain/premorbid injury. 3. Decreased Ind with self care tasks.) Occupational Therapy Goals: 1. Pt will demonstrate improved endurance needed for safe and Ind ADLs. 2. Pt will demonstrate improved right UE strength and motion to allow functional use during ADLs/ADLs. 3. Pt will be safe and Ind with showering and total body dressing. Occupational Therapy Plan: OT 2-4 times per week to address self cares, UE function and overall activity tolerance to allow safe and Ind return home.
[2018-12-19] MEDS: DRONABINOL 2.5 MG CAPSULE PO SCH ×2 (11:43→17:23)
[2018-12-19] MEDS ORDERED: ACETAMINOPHEN 500 MG TABLET PO PRN (12:29)
--- NOTE | 2018-12-19 14:42 | Occupational Therapy Tx Note ---
Occupational Therapy Tx Note - Treatment Note Tolerated: Good Total Time Spent With Patient: 30 (MTT) Occupational Therapy Treatment Note: Detail (S: Pt feeling a little better this afternoon but would prefer to wait on showering. She reports significant improvement in right shoulder pain after last treatment and she is requesting to work on this today. O: Pt lying reclined in chair. PROM and slow sustained stretching to right shoulder flexion and abduction throughout all ranges with MTT and MFR to right posterior shoulder, lateral shoulder/deltoid insertion and pecs/anterior shoulder during stretching and in relaxed state. Pt educated on stretches in standing using wall and doorway as well as pec stretch while in supine. She verbalized understanding. A: Pt reports significant decrease in pain after treatment and she had improved motion throughout right shoulder) Occupational Therapy Problem List: Detail (1. Decreased endurance needed for safe and Ind self cares. 2. Decreased right UE ROM and strength due to pain/premorbid injury. 3. Decreased Ind with self care tasks.) Occupational Therapy Goals: 1. Pt will demonstrate improved endurance needed for safe and Ind ADLs. 2. Pt will demonstrate improved right UE strength and motion to allow functional use during ADLs/ADLs. 3. Pt will be safe and Ind with showering and total body dressing. Prognosis: Good Occupational Therapy Plan: OT 2-4 times per week to address self cares, UE function and overall activity tolerance to allow safe and Ind return home.
--- NOTE | 2018-12-19 15:46 | Physician Progress Note ---
Subjective - Date Date of Progress Note: 12/19/18 - Admitting Diagnosis Diagnosis: deconditioning due to c. difficile infection - Subjective Events since last encounter: Patient is reporting headache and feeling chilled today, otherwise no new concerns. Has been afebrile. Was unable to complete radioactive iodine uptake scan due to recent MVI with minerals use. Nursing Care Plan Problem List Activity Intolerance (Swing Bed) Start: 12/16/18 13:32 Freq: Status: Active Protocol: Created 12/16/18 13:32 HMF (Rec: 12/16/18 13:32 HMF [email or web address]-[email or web address]) Altered Thought Process (Fall Risk) Start: 12/16/18 20:09 Freq: Status: Active Protocol: Created 12/16/18 20:09 MDD (Rec: 12/16/18 20:09 MDD [email or web address]) Impaired Mobility (Fall Risk) Start: 12/16/18 20:09 Freq: Status: Active Protocol: Created 12/16/18 20:09 MDD (Rec: 12/16/18 20:09 MDD [email or web address]) Knowledge Deficit (Swing Bed) Start: 12/16/18 13:32 Freq: Status: Active Protocol: Created 12/16/18 13:32 HMF (Rec: 12/16/18 13:32 HMF [email or web address]-1) Pain (Swing Bed) Start: 12/16/18 13:32 Freq: Status: Active Protocol: Created 12/16/18 13:32 HMF (Rec: 12/16/18 13:32 HMF [email or web address]-1) Risk for Injury (Fall Risk) Start: 12/16/18 20:09 Freq: Status: Active Protocol: Created 12/16/18 20:09 MDD (Rec: 12/16/18 20:09 MDD [email or web address]-1) General - Cognitive Patterns Speech: Normal Thought Process: Intact Thought Content: Normal - Communication Select best description of speech pattern: Clear Speech Ability to express ideas and wants: Understood Understanding verbal content: Understands - Mood and Behavior Patterns Appearance: Well Groomed Mood: Depressed Attitude: Cooperative Motor Activity: Calm Affect: Appropriate, Sad - Physical Functioning Activity Level: Up as tolerated Turning: Self ad eli ROM Ability: Moves all extremities Assistive Devices: Oxygen Ambulation Ability: Independent Bed Mobility: Independent Transfer Ability: Independent Bathing Ability: Independent Personal Hygiene: Independent Dressing Ability: Independent Eating (Feeding) Ability: Independent Toileting Ability: Independent Administer Own Medication: Independent - Continence Bowel Pattern: Normal for Patient Bladder Pattern: Normal, Incontinent Urinary Incontinence: Unconscious Meds/Allergies - Allergies Allergies Allergy/AdvReac Type Severity Reaction Status Date / Time No Known Drug Allergies Allergy Unverified 12/13/18 13:47 - Active Medications Current Medications Acetaminophen (Tylenol 500mg Tab) 1,000 mg PO Q6H PRN PRN Reason: HEADACHE Albuterol Sulfate (Albuterol Sulfate) 2.5 mg INH Q4H PRN PRN Reason: DIFFICULTY IN BREATHING Aspirin (Ecotrin (Ec)) 81 mg PO DAILY [facility] Last Admin: 12/19/18 09:42 Dose: 81 mg Documented by: Carvedilol (Coreg) 3.125 mg PO BID [facility] Last Admin: 12/19/18 09:42 Dose: 3.125 mg Documented by: Dronabinol (Dronabinol) 5 mg PO 1130,1700 [facility] Last Admin: 12/19/18 11:43 Dose: 5 mg Documented by: Ezetimibe (Zetia) 10 mg PO QHS [facility] Last Admin: 12/18/18 21:19 Dose: 10 mg Documented by: Escitalopram Oxalate (Lexapro) 20 mg PO DAILY [facility] Last Admin: 12/19/18 09:42 Dose: 20 mg Documented by: Patient Own Med: (Evista 60 Mg) 1 each PO DAILY [facility] Last Admin: 12/19/18 09:41 Dose: 1 each Documented by: Patient Own Med: (Daliresp 500 Mcg) 1 each PO DAILY [facility] Last Admin: 12/19/18 09:41 Dose: 1 each Documented by: Simvastatin (Zocor) 80 mg PO QHS [facility] Last Admin: 12/18/18 21:19 Dose: 80 mg Documented by: Vancomycin HCl (Vancomycin Hcl) 125 mg PO Q6HR [facility] Last Admin: 12/19/18 11:42 Dose: 125 mg Documented by: Objective - Vital Signs Vital Signs: Vital Signs - Last 24 Hrs Temp Pulse Pulse Resp BP Pulse Ox 12/19/18 10:10 100 H 16 89 L 12/19/18 08:00 98.4 F 99 H 20 113/85 85 L 12/18/18 20:00 97.8 F 93 H 20 121/55 90 L - General General Appearance: Alert, Oriented x3, Cooperative, No acute distress Limitations: Other (malnourished appearance) - Head Head exam: Normal inspection - Eye Eye exam: Normal appearance, PERRL Pupils: Normal accommodation - ENT ENT exam: Normal exam, Mucous membranes moist, Normal external ear exam, Normal orophraynx, TM's normal bilaterally Ear exam: Normal external inspection. negative: External canal tenderness Nasal Exam: Normal inspection. negative: Discharge, Sinus tenderness Mouth exam: Normal external inspection, Tongue normal Teeth exam: Normal inspection. negative: Dental caries Throat exam: Normal inspection. negative: Tonsillar erythema, Tonsillar exudate - Neck Neck exam: Normal inspection, Full ROM. negative: Tenderness - Respiratory Respiratory exam: Decreased breath sounds. negative: Respiratory distress - Cardiovascular Cardiovascular Exam: Regular rate, Normal rhythm, Normal heart sounds - GI/Abdominal GI/Abdominal exam: Soft, Normal bowel sounds. negative: Tenderness - Rectal Rectal exam: Deferred - exam: Deferred - Extremities Extremities exam: Normal inspection, Full ROM, Normal capillary refill. negative: Tenderness - Back Back exam: Reports: Normal inspection, Full ROM. Denies: Muscle spasm, Rash noted, Tenderness - Neurological Neurological exam: Alert, Normal gait, Oriented X3, Reflexes normal - Psychiatric Psychiatric exam: Normal affect, Normal mood - Skin Skin exam: Dry, Intact, Normal color, Warm Discharge Potential - Discharge Needs Community Services Used Prior to Admission: Oxygen Therapy Patient Discharge Plan Description: Return Home Community Services Needed at Discharge: Oxygen Therapy Plan - Swing Bed Certification Initial Certification Due: 12/16/18 14 Day Re-Cert Due: 12/30/18 44 Day Re-Cert Due: 01/29/19 74 Day Re-Cert Due: 02/28/19
--- NOTE | 2018-12-19 16:20 | Physical Therapy Tx Note ---
Physical Therapy Tx Note - Treatment Note Tolerated: Good Total Time Spent With Patient: 25 Physical Therapy Tx Note: Detail (The patient was up in chair when PT arrived. The patient ambulated 75 feet x 2 with 2 L of O2 without device at a normal functional walking pace. SpO2 sat. level after ambulating was 83 to 85 with 5 minute recovery to return to 88 to 90. The patient also completed standing squats and hip abduction x 10 reps before fatiguing. O2 sat level dropped to 83 with recovery again aproximately 5 minutes . The patient continues to require 2 L of O2 with activity and 1 L at rest. The patient ambulated with a steadier gait pattern.) Physical Therapy Problem List: Detail (1)Weakness in hip flexors, extensors and R hamstrings 2) Decreased ability to complete prolonged physical activity 3) Shortness of breath and SpO2 decrease to the 80's with activity) Physical Therapy Goals: 1) Evaluate the patient's balance with use of an objective balance scale. 2) The patient will ambulate distances of 100 feet and plus independently on 1L of O2 maintaining SpO2 level to 90 and above. 3) The patient will tolerate 30 minutes of physical activity with one to two rest periods. Physical Therapy Plan: PT 1-2 times a day M-F for LE strengthening and muscular endurance exercises, mild aerobic exercises and gait training distances.
[2018-12-19] MEDS: SIMVASTATIN 20 MG TABLET PO SCH (22:07)
[2018-12-19] MEDS: EZETIMIBE 10 MG TABLET PO SCH (22:07)
[2018-12-20] MEDS: VANCOMYCIN HCL 1 GM VIAL PO SCH ×4 (05:50→23:49)
[2018-12-20] MEDS: UMECLIDINIUM BROMIDE (INCRUSE) 62.5MCG IH SCH (10:33)
[2018-12-20] MEDS: BREO (FLUTICASONE/VILANTEROL) 200MCG/25MCG INHALER INH SCH (10:33)
[2018-12-20] MEDS: CARVEDILOL 3.125 MG TABLET PO SCH ×2 (10:59→21:41)
[2018-12-20] MEDS: DRONABINOL 2.5 MG CAPSULE PO SCH ×2 (10:59→17:31)
[2018-12-20] MEDS: ASPIRIN 81 MG TABEC PO SCH (10:59)
[2018-12-20] MEDS: BIFIDOBACTERIUM INFANTIS 4 MG CAPSULE PO SCH (10:59)
[2018-12-20] MEDS: ESCITALOPRAM 10 MG TABLET PO SCH (10:59)
[2018-12-20] MEDS: EVISTA 60 MG PO SCH (11:00)
[2018-12-20] MEDS: DALIRESP 500 MCG PO SCH (11:00)
--- NOTE | 2018-12-20 11:18 | Physical Therapy Tx Note ---
Physical Therapy Tx Note - Treatment Note Tolerated: Good Total Time Spent With Patient: 30 Physical Therapy Tx Note: Detail (Patient was seated in chair working with respiratory therapist upon [employer] arrival. Patient was increased to 3L oxygen due to decreased O2 levels. Patient performed the following seated exercises x10-15 reps each: LAQ, marching, hamstring curls with red theraband, hip abduction with red theraband, isometric hip adduction, glut squeezes, heel raises, toe raises. Patient transferred sit to and from stand x2 SBA x1. Patient performed the following standing exercises x10 reps each: hip flexion, hip abduction, hip extension, hamstring curls, heel raises, and toe raises. Patient required rest breaks with standing exercises and seated exercises due to shortness of breath. Patient declined ambulation this morning due to shortness of breath. Patient reports feeling tired after treatment. Patient was left seated in chair with nurse in room.) Physical Therapy Problem List: Detail (1)Weakness in hip flexors, extensors and R hamstrings 2) Decreased ability to complete prolonged physical activity 3) Shortness of breath and SpO2 decrease to the 80's with activity) Physical Therapy Goals: 1) Evaluate the patient's balance with use of an objective balance scale. 2) The patient will ambulate distances of 100 feet and plus independently on 1L of O2 maintaining SpO2 level to 90 and above. 3) The patient will tolerate 30 minutes of physical activity with one to two rest periods. Prognosis: Good Physical Therapy Plan: PT 1-2 times a day M-F for LE strengthening and muscular endurance exercises, mild aerobic exercises and gait training distances.
--- NOTE | 2018-12-20 15:07 | Physical Therapy Tx Note ---
Physical Therapy Tx Note - Treatment Note Tolerated: Good Total Time Spent With Patient: 20 Physical Therapy Tx Note: Detail (Pt sitting in recliner upon arrival, states O2 was decreased from 3 L/min earlier to 2 L/min currently. Respiratory therapist to come later to see if it can be further decreased. Pt denies any new difficulty breathing or changes. Responsive to treatment for R shoulder. Passive stretching into flexion, abduction, and external rotation. Myofascial release techniques to R pectoralis major, proximal biceps; AC joint distraction, grade II inferior glides of glenohumeral joint to facilitate abduction; SC joint mobilization in flexion and horizontal abduction. Mobilized elevated R first rib. Trigger point technique to release R levator scapulae. Active assisted diagonal movements with R UE x 5 each. Pt stated she felt good after treatment. End ranges of flexion and abduction are tight.) Physical Therapy Problem List: Detail (1)Weakness in hip flexors, extensors and R hamstrings 2) Decreased ability to complete prolonged physical activity 3) Shortness of breath and SpO2 decrease to the 80's with activity) Physical Therapy Goals: 1) Evaluate the patient's balance with use of an objective balance scale. 2) The patient will ambulate distances of 100 feet and plus independently on 1L of O2 maintaining SpO2 level to 90 and above. 3) The patient will tolerate 30 minutes of physical activity with one to two rest periods. Prognosis: Good Physical Therapy Plan: PT 1-2 times a day M-F for LE strengthening and muscular endurance exercises, mild aerobic exercises and gait training distances.
[2018-12-20] MEDS: EZETIMIBE 10 MG TABLET PO SCH (21:40)
[2018-12-20] MEDS: SIMVASTATIN 20 MG TABLET PO SCH (21:41)
[2018-12-21] MEDS: VANCOMYCIN HCL 1 GM VIAL PO SCH ×4 (05:53→23:13)
[2018-12-21] MEDS: BREO (FLUTICASONE/VILANTEROL) 200MCG/25MCG INHALER INH SCH (09:41)
[2018-12-21] MEDS: UMECLIDINIUM BROMIDE (INCRUSE) 62.5MCG IH SCH (09:41)
[2018-12-21] MEDS: CARVEDILOL 3.125 MG TABLET PO SCH ×2 (09:57→21:39)
[2018-12-21] MEDS: ESCITALOPRAM 10 MG TABLET PO SCH (09:57)
[2018-12-21] MEDS: BIFIDOBACTERIUM INFANTIS 4 MG CAPSULE PO SCH (09:57)
[2018-12-21] MEDS: DALIRESP 500 MCG PO SCH (09:58)
[2018-12-21] MEDS: EVISTA 60 MG PO SCH (09:58)
[2018-12-21] MEDS: ASPIRIN 81 MG TABEC PO SCH (09:58)
--- NOTE | 2018-12-21 11:08 | Occupational Therapy Tx Note ---
Occupational Therapy Tx Note - Treatment Note Tolerated: Good Total Time Spent With Patient: 30 (ADL) Occupational Therapy Treatment Note: Detail (S: Pt up in chair, reports she is feeling better today and shoulder is moving much better. O: Pt using 1 liter of oxygen which was increase to 2 liters for activity. Sit to stand and amb to shower Indly. Doffed shirt, pants, slipper socks and underwear Indly in sitting and standing. Pt completed total body shower in sitting with supervision for standing. She was Ind with drying self. Donned shirt, underwear, pants and slipper socks Indly. Pt amb to chair Indly. Pt was short of breath during activity but was able to appropriately use pursed lip breathing and pace self during shower and dressing. Oxygen returned to 1 liter after activity. A: Pt is Ind with showering in sitting, Ind with total body dressing, Shortness of breath with activity, Ind with activity pacing and pursed lip breathing.) Occupational Therapy Problem List: Detail (1. Decreased endurance needed for safe and Ind self cares. 2. Decreased right UE ROM and strength due to pain/premorbid injury. 3. Decreased Ind with self care tasks.) Occupational Therapy Goals: 1. Pt will demonstrate improved endurance needed for safe and Ind ADLs. 2. Pt will demonstrate improved right UE strength and motion to allow functional use during ADLs/ADLs. 3. Pt will be safe and Ind with showering and total body dressing. Prognosis: Good Occupational Therapy Plan: OT 2-4 times per week to address self cares, UE function and overall activity tolerance to allow safe and Ind return home.
[2018-12-21] MEDS: DRONABINOL 2.5 MG CAPSULE PO SCH ×2 (12:05→16:55)
--- NOTE | 2018-12-21 14:46 | Physical Therapy Tx Note ---
Physical Therapy Tx Note - Treatment Note Tolerated: Good Total Time Spent With Patient: 40 Physical Therapy Tx Note: Detail (The patient was up in chair when PT arrived. The patient ambulated with front wheeled walker and 2 L of O2 a distance of 144 feet x 2 (4 minute rest inbetween) with SpO2 dropping to 83 and returning to 88/90 after 3 -4 minutes. The patient's bed was adjusted to height where she could complete pedal bike posteriorly with arms and completed x 20 seconds. PT completed gentle stretching on R pectoralis major and into R shoulder flexion and abduction preceded by MFR of R deltoid, pects, medial scapular border, axilla region. MET of R first rib was also completed. The patient's R shoulder AROM improved following Manual Therapy Techniques. The patient is to continue with LE and UE exercises to improve her endurance.) Physical Therapy Problem List: Detail (1)Weakness in hip flexors, extensors and R hamstrings 2) Decreased ability to complete prolonged physical activity 3) Shortness of breath and SpO2 decrease to the 80's with activity) Physical Therapy Goals: 1) Evaluate the patient's balance with use of an objective balance scale.(Goal Met). 2) The patient will ambulate distances of 100 feet and plus independently on 2L of O2 maintaining SpO2 level to 90 and above. 3) The patient will tolerate 30 minutes of physical activity with one to two rest periods. Physical Therapy Plan: PT 1-2 times a day M-F for LE strengthening and muscular endurance exercises, mild aerobic exercises and gait training distances.
[2018-12-21] MEDS: SIMVASTATIN 20 MG TABLET PO SCH (21:39)
[2018-12-21] MEDS: EZETIMIBE 10 MG TABLET PO SCH (21:39)
[2018-12-22] MEDS: VANCOMYCIN HCL 1 GM VIAL PO SCH ×4 (05:43→23:56)
[2018-12-22] MEDS: ESCITALOPRAM 10 MG TABLET PO SCH (09:33)
[2018-12-22] MEDS: BIFIDOBACTERIUM INFANTIS 4 MG CAPSULE PO SCH (09:33)
[2018-12-22] MEDS: CARVEDILOL 3.125 MG TABLET PO SCH ×2 (09:34→21:10)
[2018-12-22] MEDS: DALIRESP 500 MCG PO SCH (09:34)
[2018-12-22] MEDS: ASPIRIN 81 MG TABEC PO SCH (09:34)
[2018-12-22] MEDS: EVISTA 60 MG PO SCH (09:36)
[2018-12-22] MEDS: BREO (FLUTICASONE/VILANTEROL) 200MCG/25MCG INHALER INH SCH (09:57)
[2018-12-22] MEDS: UMECLIDINIUM BROMIDE (INCRUSE) 62.5MCG IH SCH (09:58)
[2018-12-22] MEDS: DRONABINOL 2.5 MG CAPSULE PO SCH ×2 (14:30→18:32)
[2018-12-22] MEDS: EZETIMIBE 10 MG TABLET PO SCH (21:10)
[2018-12-22] MEDS: SIMVASTATIN 20 MG TABLET PO SCH (21:11)
[2018-12-23] MEDS: VANCOMYCIN HCL 1 GM VIAL PO SCH ×4 (06:09→23:47)
[2018-12-23] MEDS: BIFIDOBACTERIUM INFANTIS 4 MG CAPSULE PO SCH (10:10)
[2018-12-23] MEDS: ASPIRIN 81 MG TABEC PO SCH (10:11)
[2018-12-23] MEDS: ESCITALOPRAM 10 MG TABLET PO SCH (10:11)
[2018-12-23] MEDS: CARVEDILOL 3.125 MG TABLET PO SCH ×2 (10:12→23:02)
[2018-12-23] MEDS: EVISTA 60 MG PO SCH (10:15)
[2018-12-23] MEDS: DALIRESP 500 MCG PO SCH (10:15)
[2018-12-23] MEDS: UMECLIDINIUM BROMIDE (INCRUSE) 62.5MCG IH SCH (10:27)
[2018-12-23] MEDS: BREO (FLUTICASONE/VILANTEROL) 200MCG/25MCG INHALER INH SCH (10:27)
[2018-12-23] MEDS: DRONABINOL 2.5 MG CAPSULE PO SCH ×2 (12:13→16:53)
[2018-12-23 18:38] LABS: ABSOLUTE NEUTROPHIL COUNT 1.91; HEMATOCRIT 39.3 % (35.0-47.0); HEMOGLOBIN 11.7 gm/dl (11.6-16.0); MEAN CELL VOLUME 80.5 fl (81-97); MEAN CORPUSCULAR HGB CONC 29.8 g/dl (32-36); MEAN PLATELET VOLUME 10.9 fl (7.4-10.4); PLATELET COUNT 314 K/uL (130-400); RED BLOOD COUNT 4.88 M/uL (3.80-5.40); RED CELL DISTRIBUTION WIDTH 18.1 % (11.5-14.5); WHITE BLOOD COUNT W/O DIFF 4.3 K/uL (4.2-12.2)
[2018-12-23] MEDS ORDERED: ALPRAZOLAM 0.25 MG TABLET PO ONE (18:41)
[2018-12-23 18:47] LABS: PLATELET ESTIMATE NORMAL (NORMAL)
[2018-12-23 18:51] LABS: BLOOD UREA NITROGEN 11 mg/dL (8-23); CREATININE 0.3 mg/dL (0.5-0.9); EST GLOMERULAR FILTRATION RATE > 60 mL/min
[2018-12-23 18:52] LABS: TOTAL PROTEIN 6.6 g/dL (6.6-8.7)
[2018-12-23 18:54] LABS: GLUCOSE,RANDOM 142 mg/dL (74-109)
[2018-12-23 18:56] LABS: ALBUMIN 3.3 g/dL (4.0-5.0); ALT/SGPT 34 U/L (<33)
[2018-12-23 18:57] LABS: ALKALINE PHOSPHATASE 116 U/L (35-104); AST/SGOT 36 U/L (10.0-35.0)
[2018-12-23] MEDS: SIMVASTATIN 20 MG TABLET PO SCH (23:02)
[2018-12-23] MEDS: EZETIMIBE 10 MG TABLET PO SCH (23:02)
[2018-12-24] MEDS: VANCOMYCIN HCL 1 GM VIAL PO SCH ×4 (06:15→23:31)
--- NOTE | 2018-12-24 07:47 | RADIOLOGY REPORT ---
EXAM: CHEST, SINGLE VIEW HISTORY: TACHYCARDIA. TECHNIQUE: A single portable AP view of the chest was performed. Comparison: 08/21/18. FINDINGS: Breathing motion artifact is present. The heart, mediastinum, and pulmonary vasculature are normal. The lungs are hyperinflated consistent with COPD. Stable parenchymal scarring is noted at the lung bases. There are no visible acute infiltrates or effusions. There is no pneumothorax. The bones appear intact. IMPRESSION: 1. SLIGHTLY LIMITED EXAMINATION DUE TO MOTION ARTIFACT. 2. STABLE COPD AND BIBASILAR SCARRING. 3. NO ACUTE CHEST PATHOLOGY. JOB NUMBER: [id number] [facility]
--- NOTE | 2018-12-24 09:56 | Physician Progress Note ---
Subjective - Date Date of Progress Note: 12/24/18 - Admitting Diagnosis Diagnosis: deconditioning due to c. difficile infection - Subjective Events since last encounter: Contacted by nursing approx 1830 for sudden onset bilat arm and lip tingling, racing heart. Patient denied chest pain or diaphorsis at that time. Her son had just visited but usually does not cause her anxiety. Just prior to onset of symptoms the air conditioning had an interruption in function and she had a more difficult time breathing. Work up at that time was normal, no evidence for ACS, negative CXR. Symptoms readily improved after air conditioning returned to [facility] and she had a PRN dose of Xanax. Nursing Care Plan Problem List Activity Intolerance (Swing Bed) Start: 12/16/18 13:32 Freq: Status: Active Protocol: Created 12/16/18 13:32 HMF (Rec: 12/16/18 13:32 HMF [email or web address]-1) Altered Thought Process (Fall Risk) Start: 12/16/18 20 :09 Freq: Status: Active Protocol: Created 12/16/18 20:09 MDD (Rec: 12/16/18 20:09 MDD [email or web address]-1) Impaired Mobility (Fall Risk) Start: 12/16/18 20:09 Freq: Status: Active Protocol: Created 12/16/18 20:09 MDD (Rec: 12/16/18 20:09 MDD [email or web address]-1) Knowledge Deficit (Swing Bed) Start: 12/16/18 13:32 Freq: Status: Active Protocol: Created 12/16/18 13:32 HMF (Rec: 12/16/18 13:32 HMF ASTS-1) Pain (Swing Bed) Start: 12/16/18 13:32 Freq: Status: Active Protocol: Created 12/16/18 13:32 HMF (Rec: 12/16/18 13:32 HMF [email or web address]-1) Risk for Injury (Fall Risk) Start: 12/16/18 20:09 Freq: Status: Active Protocol: Created 12/16/18 20:09 MDD (Rec: 12/16/18 20:09 MDD [email or web address]-1) General - Cognitive Patterns Speech: Normal Thought Process: Intact Thought Content: Normal - Communication Select best description of speech pattern: Clear Speech Ability to express ideas and wants: Understood Understanding verbal content: Understands - Mood and Behavior Patterns Appearance: Well Groomed Mood: Depressed Attitude: Cooperative Motor Activity: Calm Affect: Appropriate, Sad - Physical Functioning Activity Level: Up as tolerated Turning: Self ad eli ROM Ability: Within Normal Limits Assistive Devices: 4 Wheel Walker Ambulation Ability: Independent Bed Mobility: Independent Transfer Ability: Independent Bathing Ability: Independent Personal Hygiene: Independent Dressing Ability: Independent Eating (Feeding) Ability: Independent Toileting Ability: Independent Administer Own Medication: Independent - Continence Bowel Pattern: Normal for Patient Bladder Pattern: Normal Urinary Incontinence: Unconscious Meds/Allergies - Allergies Allergies Allergy/AdvReac Type Severity Reaction Status Date / Time No Known Drug Allergies Allergy Unverified 12/13/18 13:47 - Active Medications Current Medications Acetaminophen (Tylenol 500mg Tab) 1,000 mg PO Q6H PRN PRN Reason: HEADACHE Albuterol Sulfate (Albuterol Sulfate) 2.5 mg INH Q4H PRN PRN Reason: DIFFICULTY IN BREATHING Aspirin (Ecotrin (Ec)) 81 mg PO DAILY [facility] Last Admin: 12/23/18 10:11 Dose: 81 mg Documented by: Carvedilol (Coreg) 3.125 mg PO BID [facility] Last Admin: 12/23/18 23:02 Dose: 3.125 mg Documented by: Dronabinol (Dronabinol) 5 mg PO 1130,1700 [facility] Last Admin: 12/23/18 16:53 Dose: 5 mg Documented by: Ezetimibe (Zetia) 10 mg PO QHS [facility] Last Admin: 12/23/18 23:02 Dose: 10 mg Documented by: Escitalopram Oxalate (Lexapro) 20 mg PO DAILY [facility] Last Admin: 12/23/18 10:11 Dose: 20 mg Documented by: Patient Own Med: (Evista 60 Mg) 1 each PO DAILY [facility] Last Admin: 12/23/18 10:15 Dose: 1 each Documented by: Patient Own Med: (Daliresp 500 Mcg) 1 each PO DAILY [facility] Last Admin: 12/23/18 10:15 Dose: 1 each Documented by: Simvastatin (Zocor) 80 mg PO QHS [facility] Last Admin: 12/23/18 23:02 Dose: 80 mg Documented by: Vancomycin HCl (Vancomycin Hcl) 125 mg PO Q6HR [facility] Last Admin: 12/24/18 06:15 Dose: 125 mg Documented by: Objective - Vital Signs Vital Signs: Vital Signs - Last 24 Hrs Temp Pulse Pulse Resp BP BP Pulse Ox 12/24/18 09:23 98.5 F 138/65 12/24/18 08:00 98.5 F 113 H 18 138/65 88 L 12/23/18 20:00 97.9 F 110 H 18 129/75 88 L 12/23/18 10:28 106 H 18 90 L - General General Appearance: Alert, Oriented x3, Cooperative, No acute distress - ENT ENT exam: Normal exam - Respiratory Respiratory exam: Decreased breath sounds. negative: Respiratory distress - Cardiovascular Cardiovascular Exam: Regular rate, Normal rhythm - GI/Abdominal GI/Abdominal exam: Soft. negative: Tenderness - Neurological Neurological exam: Alert, CN II-XII intact, Oriented X3 - Psychiatric Psychiatric exam: Normal affect, Normal mood H&P Results - Labs Result Diagrams: 12/23/18 18:30 12/23/18 18:30 Labs Last 24 Hours: Laboratory Results - last 24 hr 12/23/18 12/23/18 12/23/18 18:30 18:30 18:30 WBC 4.3 RBC 4.88 Hgb 11.7 Hct 39.3 MCV 80.5 L MCH 24.0 L MCHC 29.8 L RDW 18.1 H Plt Count 314 MPV 10.9 H Neutrophils % 46.0 L Eosinophils % Not Reportable Basophils % Not Reportable Absolute Neutrophils 1.91 Lymphocytes 28.0 Monocytes 21.0 H Platelet Estimate Normal Eosinophil Count 5.0 Sodium 140 Potassium 3.9 Chloride 102 Carbon Dioxide 28.0 Anion Gap 10.0 BUN 11 Creatinine 0.3 L Estimated GFR > 60 Random Glucose 142 H Calcium 8.9 Total Bilirubin 0.20 AST 36 H ALT 34 H Alkaline Phosphatase 116 H Troponin T < 0.010 NT-Pro-B Natriuret Pep 985.20 H Total Protein 6.6 Albumin 3.3 L Globulin 3.3 Albumin/Globulin Ratio 1.0 L 12/23/18 12/24/18 21:30 03:25 WBC RBC Hgb Hct MCV MCH MCHC RDW Plt Count MPV Neutrophils % Eosinophils % Basophils % Absolute Neutrophils Lymphocytes Monocytes Platelet Estimate Eosinophil Count Sodium Potassium Chloride Carbon Dioxide Anion Gap BUN Creatinine Estimated GFR Random Glucose Calcium Total Bilirubin AST ALT Alkaline Phosphatase Troponin T < 0.010 < 0.010 NT-Pro-B Natriuret Pep Total Protein Albumin Globulin Albumin/Globulin Ratio Discharge Potential - Discharge Needs Community Services Used Prior to Admission: Oxygen Therapy Patient Discharge Plan Description: Return Home Community Services Needed at Discharge: Oxygen Therapy Plan - Swing Bed Certification Initial Certification Due: 12/16/18 14 Day Re-Cert Due: 12/30/18 44 Day Re-Cert Due: 01/29/19 74 Day Re-Cert Due: 02/28/19
[2018-12-24] MEDS: UMECLIDINIUM BROMIDE (INCRUSE) 62.5MCG IH SCH (10:06)
[2018-12-24] MEDS: BREO (FLUTICASONE/VILANTEROL) 200MCG/25MCG INHALER INH SCH (10:06)
[2018-12-24] MEDS: ASPIRIN 81 MG TABEC PO SCH (10:09)
[2018-12-24] MEDS: CARVEDILOL 3.125 MG TABLET PO SCH ×2 (10:09→22:40)
[2018-12-24] MEDS: BIFIDOBACTERIUM INFANTIS 4 MG CAPSULE PO SCH (10:09)
[2018-12-24] MEDS: EVISTA 60 MG PO SCH (10:10)
[2018-12-24] MEDS: DALIRESP 500 MCG PO SCH (10:10)
[2018-12-24] MEDS: ESCITALOPRAM 10 MG TABLET PO SCH (10:10)
--- NOTE | 2018-12-24 10:40 | Physical Therapy Tx Note ---
Physical Therapy Tx Note - Treatment Note Tolerated: Good Total Time Spent With Patient: 20 Physical Therapy Tx Note: Detail (The patient was in a recliner when PT arrived. The patient reports she didn't feel well over the weekend. The patient ambulated with 4 wheeled walker and 2 L of O2 a distance of 218 feet x 1 and 178 feet x 1 independently ( with assist to handle O2 only) . SpO2 level was 83 with recovery to 90 after 3 minutes. The patient declined further activity due to fatigue. Plan on completing stair climbing next session (tomorrow).) Physical Therapy Problem List: Detail (1)Weakness in hip flexors, extensors and R hamstrings 2) Decreased ability to complete prolonged physical activity 3) Shortness of breath and SpO2 decrease to the 80's with activity) Physical Therapy Goals: 1) Evaluate the patient's balance with use of an objective balance scale.(Goal Met). 2) The patient will ambulate distances of 100 feet and plus independently on 2L of O2 maintaining SpO2 level to 90 and above. 3) The patient will tolerate 30 minutes of physical activity with one to two rest periods. Physical Therapy Plan: PT 1-2 times a day M-F for LE strengthening and muscular endurance exercises, mild aerobic exercises and gait training distances.
[2018-12-24] MEDS: DRONABINOL 2.5 MG CAPSULE PO SCH ×2 (13:01→17:54)
--- NOTE | 2018-12-24 14:23 | Occupational Therapy Tx Note ---
Occupational Therapy Tx Note - Treatment Note Tolerated: Good Total Time Spent With Patient: 30 (MTT, ther ex) Occupational Therapy Treatment Note: Detail (S: Pt reports shoulder is feeling better and moving better. O: PROM to right shoulder flexion, abduction, ER and IR in semi reclined position with MTT to include pec and sub scap release as well as deltoid MFR. Pt educated and able to demonstrate learning of right shoulder isometrics to include 3 reps x 5 sec hold to right shoulder flexion, extension, abduction, adduction, IR and ER in sitting and standing. Pt required cues for breathing techniques during exercise. A: No pain with isometrics, strength slowly improving although pt continues with shortness of breath.) Occupational Therapy Problem List: Detail (1. Decreased endurance needed for safe and Ind self cares. 2. Decreased right UE ROM and strength due to pain/premorbid injury. 3. Decreased Ind with self care tasks.) Occupational Therapy Goals: 1. Pt will demonstrate improved endurance needed for safe and Ind ADLs. 2. Pt will demonstrate improved right UE strength and motion to allow functional use during ADLs/ADLs. 3. Pt will be safe and Ind with showering and total body dressing. Prognosis: Good Occupational Therapy Plan: OT 2-4 times per week to address self cares, UE function and overall activity tolerance to allow safe and Ind return home.
[2018-12-24] MEDS: SIMVASTATIN 20 MG TABLET PO SCH (22:40)
[2018-12-24] MEDS: EZETIMIBE 10 MG TABLET PO SCH (22:40)
[2018-12-25] MEDS: VANCOMYCIN HCL 1 GM VIAL PO SCH ×4 (06:13→23:04)
[2018-12-25] MEDS: BIFIDOBACTERIUM INFANTIS 4 MG CAPSULE PO SCH (09:56)
[2018-12-25] MEDS: CARVEDILOL 3.125 MG TABLET PO SCH ×2 (09:56→21:46)
[2018-12-25] MEDS: ESCITALOPRAM 10 MG TABLET PO SCH (09:56)
[2018-12-25] MEDS: ASPIRIN 81 MG TABEC PO SCH (09:56)
[2018-12-25] MEDS: DALIRESP 500 MCG PO SCH (09:57)
[2018-12-25] MEDS: EVISTA 60 MG PO SCH (09:57)
[2018-12-25] MEDS: BREO (FLUTICASONE/VILANTEROL) 200MCG/25MCG INHALER INH SCH (10:51)
[2018-12-25] MEDS: UMECLIDINIUM BROMIDE (INCRUSE) 62.5MCG IH SCH (10:52)
[2018-12-25] MEDS: DRONABINOL 2.5 MG CAPSULE PO SCH ×2 (11:30→17:43)
--- NOTE | 2018-12-25 11:45 | Physical Therapy Tx Note ---
Physical Therapy Tx Note - Treatment Note Tolerated: Fair Total Time Spent With Patient: 20 Physical Therapy Tx Note: Detail (The patient refused ambulation on stairs and LE exercises stating she did not feel well. PT did agree to completing UE exercises. Manual Therapy was completed to R pectoralis mjr and minor medial scapular border and deltoid. Stretching into shoulder flexion, abduction, IR and ER. The patient also completed shoulder isometrics in shldr flexors, extensors, abductors, adductors, internal and external rotators all x 5 reps with 5 second holds. Will check with patient this pm for gait training on stairs.) Physical Therapy Problem List: Detail (1)Weakness in hip flexors, extensors and R hamstrings 2) Decreased ability to complete prolonged physical activity 3) Shortness of breath and SpO2 decrease to the 80's with activity) Physical Therapy Goals: 1) Evaluate the patient's balance with use of an objective balance scale.(Goal Met). 2) The patient will ambulate distances of 100 feet and plus independently on 2L of O2 maintaining SpO2 level to 90 and above. 3) The patient will tolerate 30 minutes of physical activity with one to two rest periods. (Goal Met) Physical Therapy Plan: PT 1-2 times a day M-F for LE strengthening and muscular endurance exercises, mild aerobic exercises and gait training distances.
--- NOTE | 2018-12-25 16:43 | Physical Therapy Tx Note ---
Physical Therapy Tx Note - Treatment Note Tolerated: Good Total Time Spent With Patient: 15 Physical Therapy Tx Note: Detail (Patient states feeling a little better this afternoon. Patient declined stair climbing, but agreed to ambulation in jama. Patient transferred sit to and from stand x2 SBA x1. Patient ambulated 115 feet x2 with four wheeled walker SBA x1 with 2L portable oxygen. Patient declined further exercises, states she will do them later tonight. Patient required seated rest break with ambulation due to fatigue and shortness of breath. Patient was left seated in chair with call light within reach with 1L oxygen.) Physical Therapy Problem List: Detail (1)Weakness in hip flexors, extensors and R hamstrings 2) Decreased ability to complete prolonged physical activity 3) Shortness of breath and SpO2 decrease to the 80's with activity) Physical Therapy Goals: 1) Evaluate the patient's balance with use of an objective balance scale.(Goal Met). 2) The patient will ambulate distances of 100 feet and plus independently on 2L of O2 maintaining SpO2 level to 90 and above. 3) The patient will tolerate 30 minutes of physical activity with one to two rest periods. (Goal Met) Prognosis: Good Physical Therapy Plan: PT 1-2 times a day M-F for LE strengthening and muscular endurance exercises, mild aerobic exercises and gait training distances.
[2018-12-25] MEDS: EZETIMIBE 10 MG TABLET PO SCH (21:46)
[2018-12-25] MEDS: SIMVASTATIN 20 MG TABLET PO SCH (21:46)
[2018-12-26] MEDS: VANCOMYCIN HCL 1 GM VIAL PO SCH ×4 (06:00→23:09)
[2018-12-26] MEDS: ESCITALOPRAM 10 MG TABLET PO SCH (09:15)
[2018-12-26] MEDS: ASPIRIN 81 MG TABEC PO SCH (09:16)
[2018-12-26] MEDS: CARVEDILOL 3.125 MG TABLET PO SCH ×2 (09:16→21:20)
[2018-12-26] MEDS: BIFIDOBACTERIUM INFANTIS 4 MG CAPSULE PO SCH (09:16)
[2018-12-26] MEDS: DALIRESP 500 MCG PO SCH (09:17)
[2018-12-26] MEDS: EVISTA 60 MG PO SCH (09:18)
[2018-12-26] MEDS: UMECLIDINIUM BROMIDE (INCRUSE) 62.5MCG IH SCH (10:12)
[2018-12-26] MEDS: BREO (FLUTICASONE/VILANTEROL) 200MCG/25MCG INHALER INH SCH (10:13)
--- NOTE | 2018-12-26 11:09 | Occupational Therapy Tx Note ---
Occupational Therapy Tx Note - Treatment Note Tolerated: Good Total Time Spent With Patient: 30 (ther ex) Occupational Therapy Treatment Note: Detail (S: Pt resting in recliner, feeling like right shoulder is improving and she was able to put her shirt on normally. O: Provided pt with red theraband and written HEP to include shoulder flexion, shoulder extension, IR, ER, rowing, horiz abduction, biceps, triceps and wall stretching. Pt was able to complete 5 reps of each exercise with right UE in sitting and standing after instruction using proper breathing techniques and 1 liter of oxygen. PROM and stretching to right shoulder flexion and abduction in sitting. Pt reports she is using red putty and it is getting easier, will provide green putty for home use. A: No pain with exercises and motion is improving) Occupational Therapy Problem List: Detail (1. Decreased endurance needed for safe and Ind self cares. 2. Decreased right UE ROM and strength due to pain/premorbid injury. 3. Decreased Ind with self care tasks.) Occupational Therapy Goals: 1. Pt will demonstrate improved endurance needed for safe and Ind ADLs. 2. Pt will demonstrate improved right UE strength and motion to allow functional use during ADLs/ADLs. 3. Pt will be safe and Ind with showering and total body dressing. Prognosis: Good Occupational Therapy Plan: OT 2-4 times per week to address self cares, UE function and overall activity tolerance to allow safe and Ind return home.
[2018-12-26] MEDS: DRONABINOL 2.5 MG CAPSULE PO SCH ×2 (11:38→17:40)
--- NOTE | 2018-12-26 14:21 | Rehab Discharge Summary ---
Patient Information - Patient Information Diagnosis: Deconditioning secondary to C-Diff., failure to thrive/wgt Ordered Treatment: OT Evaluate and Treat Surgery: No Past Medical/Surgical Hx: PAST MEDICAL/SURGICAL HISTORY Past Surgical History Hysterectomy, , Carotid artery with stent, colon resection (d/t adhesions), heart cath 2018 PMH - Respiratory Hx Respiratory Disorders Yes Hx Bronchitis Yes Hx Chronic Obstructive Yes Pulmonary Disease (COPD) Hx Pneumonia Yes Hx of SOB Yes Comment: November 2015-GUI collapsed, intubated x 24hrs. PMH - Cardiovascular Hx Cardiovascular Disorders Yes Hx Abnormal EKG Yes Hx Irregular Heartbeat Yes Hx Coronary Artery Disease Yes Hx Heart Murmur Yes: no problems Comment: carotid artery stent, murmur PMH - Neuro Hx Neurological Disorders No Hx Seizures No Comment: Rt Sided carotid stent PMH - GI Hx Gastrointestinal Disorders Yes Hx Obstructive Bowel Yes: d/t adhesions PMH - Hx Genitourinary Disorders No Patient No PMH - Endocrine Hx Endocrine Disorders No Hx Diabetes N/A Hx Thyroid Disease Yes: overactive thyroid PMH - Musculoskeletal Hx Musculoskeletal Disorders Yes Hx Arthritis Yes Hx Gout Yes: x 1 Hx Osteoporosis Yes PMH - Psych Hx Psychiatric Problems Yes Hx Anxiety Yes Hx Depression Yes PMH - Hematology/Oncology Hx Hematology/Oncology No Disorders Premorbid Status: Detail (Prior to admission, the patient was independent with self care. The patient was ambulatory without a device household distances with 1 L of O2. The patient does have a 4WW available.) Social History: Detail (The patient lives with son in a one story house with basement. At the entrance there are 3 steps that take you up onto a deck and then 1 more step into kitchen with bilateral hand rails. Patient has a tub/shower combination with a shower seat and hand held shower head and an elevated toilet. There are no grab bars in the bathroom. Pt reports her son is responsible for the majority of meal prep and laundry and she washes dishes. She reports her daughter assists with home mgmt tasks.) Precautions: [place], Fall, Other (Isolation precautions) Objective Data - Pain Pain Present: No - Mental Status Patient Orientation: Oriented x3 - Visual Perception Appears within normal limits for therapeutic activities - ROM Not within normal limits (Wilbur UE AROM WNL with exception of right shoulder flexion which is limited to approx 120 degrees.) - Strength/Tone Not within normal limits (Wilbur UE strength 4/5 with exception of right shoulder flexion which is 4-/5 within AROM limitations) - Coordination Appears within normal limits for therapeutic activities - Transfers Independent - Balance Balance Sitting: Good Balance Standing: Good - Sensation Intact - Gait Detail (Pt ambulating in room Indly) - ADL's/IADL's Detail (Pt able to complete showering and total body dressing Indly with oxygen and rest breaks as needed. She was able to use modified breathing techniques appropriately.) Therapy Assessment - Therapy Assessment Detail (Pt is Ind with ADL tasks and has a HEP for right UE ROM and stregthening.) Problem List - Problem List Physical Therapy Problem List: Detail (1)Weakness in hip flexors, extensors and R hamstrings 2) Decreased ability to complete prolonged physical activity 3) Shortness of breath and SpO2 decrease to the 80's with activity) Occupational Therapy Problem List: Detail (1. Decreased endurance needed for safe and Ind self cares. 2. Decreased right UE ROM and strength due to pain/premorbid injury. 3. Decreased Ind with self care tasks.) Goals - Goals Physical Therapy Goals: 1) Evaluate the patient's balance with use of an objective balance scale.(Goal Met). 2) The patient will ambulate distances of 100 feet and plus independently on 2L of O2 maintaining SpO2 level to 90 and above. 3) The patient will tolerate 30 minutes of physical activity with one to two rest periods. (Goal Met) Occupational Therapy Goals: Goals Met: 1. Pt will demonstrate improved endurance needed for safe and Ind ADLs. 2. Pt will demonstrate improved right UE strength and motion to allow functional use during ADLs/ADLs. 3. Pt will be safe and Ind with showering and total body dressing. Prognosis - Prognosis Good Plan - Plan Physical Therapy Plan: PT 1-2 times a day M-F for LE strengthening and muscular endurance exercises, mild aerobic exercises and gait training distances. Occupational Therapy Plan: Pt discharging home on 12/27/18.
--- NOTE | 2018-12-26 15:40 | Rehab Discharge Summary ---
Patient Information - Patient Information Diagnosis: Deconditioning secondary to C-Diff., failure to thrive/wgt Ordered Treatment: PT Evaluate and Treat Surgery: No Past Medical/Surgical Hx: PAST MEDICAL/SURGICAL HISTORY Past Surgical History Hysterectomy, , Carotid artery with stent, colon resection (d/t adhesions), heart cath 2018 PMH - Respiratory Hx Respiratory Disorders Yes Hx Bronchitis Yes Hx Chronic Obstructive Yes Pulmonary Disease (COPD) Hx Pneumonia Yes Hx of SOB Yes Comment: November 2015-GUI collapsed, intubated x 24hrs. PMH - Cardiovascular Hx Cardiovascular Disorders Yes Hx Abnormal EKG Yes Hx Irregular Heartbeat Yes Hx Coronary Artery Disease Yes Hx Heart Murmur Yes: no problems Comment: carotid artery stent, murmur PMH - Neuro Hx Neurological Disorders No Hx Seizures No Comment: Rt Sided carotid stent PMH - GI Hx Gastrointestinal Disorders Yes Hx Obstructive Bowel Yes: d/t adhesions PMH - Hx Genitourinary Disorders No Patient No PMH - Endocrine Hx Endocrine Disorders No Hx Diabetes N/A Hx Thyroid Disease Yes: overactive thyroid PMH - Musculoskeletal Hx Musculoskeletal Disorders Yes Hx Arthritis Yes Hx Gout Yes: x 1 Hx Osteoporosis Yes PMH - Psych Hx Psychiatric Problems Yes Hx Anxiety Yes Hx Depression Yes PMH - Hematology/Oncology Hx Hematology/Oncology No Disorders Premorbid Status: Detail (Prior to admission, the patient was independent with self care. The patient was ambulatory without a device household distances with 1 L of O2. The patient does have a 4WW available.) Social History: Detail (The patient lives with son in a one story house with basement. At the entrance there are 3 steps that take you up onto a deck and then 1 more step into kitchen with bilateral hand rails. Patient has a tub/shower combination with a shower seat and hand held shower head and an elevated toilet. There are no grab bars in the bathroom. Pt reports her son is responsible for the majority of meal prep and laundry and she washes dishes. She reports her daughter assists with home mgmt tasks.) Precautions: [place], Fall, Other (Isolation precautions) - Time With Patient Total Time Spent With Patient (Min): 25 Treatment Procedures: Detail (ambulation emphasis on increasing distance and improving SpO2 recovery level, re-evaluation of LE strength.) Subjective Information - Subjective Information Per Patient (The patient had no pain complaints today.) Objective Data - Mental Status Patient Orientation: Oriented x3 - Visual Perception Appears within normal limits for therapeutic activities - ROM Within normal limits - Strength/Tone Not within normal limits (The patient's LE strength is generally 4+/5 except for R hip extensors 4-/5, L 4/5, hip flexors R 4/5, L 4+/5, R knee flexors 4/5, L 4+/5.) - Transfers Independent (The patient is independent with sit to and from stand transfer, toilet transfer.) - Balance Balance Sitting: Good Balance Standing: Good (The patient's balance is in the low risk for falls using the Tinetti Assessment Tool(49/56).) - Gait Detail (The patient ambulated with 4 wheeled walker a maximal distance of 561 feet with one rest period and 2 L of O2 independently. SpO2 level decreased to 83 and increased to 91 with 1 and 1/2 min. rest period. The patient ambulated independently without device household distances. The patient declined to ambulate on steps, stating she felt she could climb her stairs at home without difficulty.) Therapy Assessment - Therapy Assessment Detail (The patient exhibited improved ability to complete prolonged physical activity with less rest periods and increased ambulatory distance. The patient also required less of rest period to recover SpO2 level after exercise.) Patient Education - Patient Education Teaching Topic: Exercise/Activity (The patient was independent with LE muscular endurance and strengthening exercises, as well as chair aerobic exercises.) Response: Return Demonstration Teaching Method: Demonstration, Handout Teaching Recipient: Patient Barriers To Learning: Age Related Problem List - Problem List Physical Therapy Problem List: Detail (1)Weakness in hip flexors, extensors and R hamstrings 2) Decreased ability to complete prolonged physical activity 3) Shortness of breath and SpO2 decrease to the 80's with activity) Occupational Therapy Problem List: Detail (1. Decreased endurance needed for safe and Ind self cares. 2. Decreased right UE ROM and strength due to pain/premorbid injury. 3. Decreased Ind with self care tasks.) Goals - Goals Physical Therapy Goals: 1) Evaluate the patient's balance with use of an objective balance scale.(Goal Met). 2) The patient will ambulate distances of 100 feet and plus independently on 2L of O2 maintaining SpO2 level to 90 and above.( Partially Met -dropped to 83-84 SpO2 with 1 1/2 min. recovery period to reach 90.). 3) The patient will tolerate 30 minutes of physical activity with one to two rest periods. (Goal Met) Occupational Therapy Goals: Goals Met: 1. Pt will demonstrate improved endurance needed for safe and Ind ADLs. 2. Pt will demonstrate improved right UE strength and motion to allow functional use during ADLs/ADLs. 3. Pt will be safe and Ind with showering and total body dressing. Plan - Plan Physical Therapy Plan: The patient is discharging on 12/27/18. Occupational Therapy Plan: Pt discharging home on 12/27/18.
[2018-12-26] MEDS: EZETIMIBE 10 MG TABLET PO SCH (21:20)
[2018-12-26] MEDS: SIMVASTATIN 20 MG TABLET PO SCH (21:20)
[2018-12-27] MEDS: VANCOMYCIN HCL 1 GM VIAL PO SCH (06:12)
[2018-12-27] MEDS: BREO (FLUTICASONE/VILANTEROL) 200MCG/25MCG INHALER INH SCH (09:26)
[2018-12-27] MEDS: UMECLIDINIUM BROMIDE (INCRUSE) 62.5MCG IH SCH (09:26)
--- NOTE | 2018-12-27 09:44 | Discharge Summary ---
Providers Discharge Summary Date: 12/27/18 Date of admission: 12/16/18 13:14 Expected Date of Discharge: 12/27/18 Attending physician: INDIRA CHAMPION Primary care physician: INDIRA CHAMPION Physical Exam - Vital Signs Vital Signs: Vital Signs - Last 24 Hrs Temp Pulse Pulse Resp BP Pulse Ox 12/27/18 09:27 104 H 20 90 L 12/27/18 07:14 98.2 F 100 H 18 110/54 87 L 12/26/18 19:54 89.7 F L 99 H 18 114/53 91 L 12/26/18 10:13 96 H 18 - General General Appearance: Alert, Oriented x3, Cooperative, No acute distress Limitations: Other (malnourished appearance) - Head Head exam: Normal inspection - Eye Eye exam: Normal appearance, PERRL Pupils: Normal accommodation - ENT ENT exam: Normal exam Ear exam: Normal external inspection. negative: External canal tenderness Nasal Exam: Normal inspection. negative: Discharge, Sinus tenderness Mouth exam: Normal external inspection, Tongue normal Teeth exam: Normal inspection. negative: Dental caries Throat exam: Normal inspection. negative: Tonsillar erythema, Tonsillar exudate - Neck Neck exam: Normal inspection, Full ROM. negative: Tenderness - Respiratory Respiratory exam: Decreased breath sounds. negative: Respiratory distress - Cardiovascular Cardiovascular Exam: Regular rate, Normal rhythm Peripheral Pulses: 2+: Radial (R), Radial (L), Dorsalis Pedis (R), Dorsalis Pedis (L) - GI/Abdominal GI/Abdominal exam: Soft. negative: Tenderness - Rectal Rectal exam: Deferred - exam: Deferred - Extremities Extremities exam: Normal inspection, Full ROM, Normal capillary refill. negative: Tenderness - Back Back exam: Reports: Normal inspection, Full ROM. Denies: Muscle spasm, Rash noted, Tenderness - Neurological Neurological exam: Alert, Oriented X3 - Psychiatric Psychiatric exam: Normal affect, Normal mood - Skin Skin exam: Dry, Intact, Normal color, Warm Hospitalization - Hospitalization Admission Diagnosis: deconditioning due to c. difficile infection - Problem List (1) Physical deconditioning Status: Acute Base Code: R53.81 - OTHER MALAISE Comment: 12/27/18: -independent for ADLs using O2 and 4-wheeled walker -Increased strength, balance, and endurance noted with PT/OT (2) C. difficile diarrhea Status: Acute Base Code: A04.72 - ENTEROCOLITIS D/T CLOSTRIDIUM DIFFICILE, NOT SPCF RECUR Comment: 12/27/18: -c diff for 4mo, failed OP treatment -Has received PO Vanco QID x 14 days -GI consult 12/27/18: recommend long taper of PO Vanco, with TID dosing x 1 week, BID dosing x 1 week, daily dosing x 1 week, and every other day x 4 weeks -tolerating PO well (3) Failure to thrive in adult Status: Acute Base Code: R62.7 - ADULT FAILURE TO THRIVE Comment: 12/27/18: -30lb wt. loss since August 2018 secondary to c. diff -Dietary consult, patient started on supplements and high protein snacks throughout the day -Gelatein 20 prosource daily due to low iodine content, can transition to Ensure after thyroid uptake scan (4) Graves disease Status: Acute Base Code: E05.00 - THYROTOXICOSIS W DIFFUSE GOITER W/O THYROTOXIC CRISIS Comment: 12/27/18: -TSH <0.01, Free T4 2.67, total T3 316 -hx of Graves, no treatment for >10 years per pt, no hx of ablation -thyroid US done 12/14, sm nodule, recommend f/u US in 1 year -Thyroid uptake scan ordered to be done Monday 01/15-01/16 with referral to endocrinology scheduled outpatient (5) COPD (chronic obstructive pulmonary disease) Status: Chronic Discharge Diagnosis: COPD type: unspecified COPD Qualified Code(s): J44.9 - Chronic obstructive pulmonary disease, unspecified Base Code: J44.9 - CHRONIC OBSTRUCTIVE PULMONARY DISEASE, UNSPECIFIED Comment: 12/27/18: -Pt has home O2 -Continue home medication regimen of Incruse and Breo (6) Full code status Status: Acute Base Code: Z78.9 - OTHER SPECIFIED HEALTH STATUS Comment: 12/27/18: -patient is full code. - Hospitalization Course Disposition: Home, Self-Care Hospital Course: Pt. presented to her PCP appointment on 12/13 for a f/u of COPD and c/o persistent diarrhea with occasional abdominal pain/cramping due to a d-diff infection for 4 months. She had lost 4 pounds since 11/14/18, and 30 pounds since 09/06/18. Her history includes: ex-smoker, COPD emphysema, home oxygen dependent, mixed hyperlipidemia, and AZUCENA. She was directly admitted for c-diff, failed outpatient treatment, dehydration, weight loss, anorexia, and failure to thrive. Labs ordered, TSH low <0.01. Nutrition consult ordered, high calorie/high protein diet ordered. PT/OT eval ordered. Thyroid u/s demonstrated sm nodule, recommend f/u u/s in 1 year. CRP and ESR wnl- r/o thyroiditis as cause of low TSH. Thyroid uptake scan ordered, will be completed 01/15-01/16 with endocrinology referral placed as well. Patient was admitted to swing bed on 12/16 for continued PT/OT for failure to thrive and weakness associated with weight loss/anorexia. Patient has regained strength and has had a stable weight during admission. Dietary consult helped educate patient to help prevent further weight loss, including high protein snacks and gelatein supplements. PCP: MILANA Reza Procedures: Imaging and X-Rays 12/23/18 18:18 CHEST 1 VIEW [RAD] Stat Cardiology Procedures 12/23/18 18:18 EKG NOW Abnormal Labs: Abnormal Lab Results 12/23/18 12/23/18 12/23/18 Range/Units 18:30 18:30 18:30 MCV 80.5 L (81-97) fl MCH 24.0 L (27-33) pg MCHC 29.8 L (32-36) g/dl RDW 18.1 H (11.5-14.5) % MPV 10.9 H (7.4-10.4) fl Neutrophils % 46.0 L (47-80) % Monocytes 21.0 H (0-9) % Creatinine 0.3 L (0.5-0.9) mg/dL Random Glucose 142 H (74-109) mg/dL AST 36 H (10.0-35.0) U/L ALT 34 H (<33) U/L Alkaline Phosphatase 116 H (35-104) U/L NT-Pro-B Natriuret Pep 985.20 H (<125) pg/mL Albumin 3.3 L (4.0-5.0) g/dL Albumin/Globulin Ratio 1.0 L (1.1-1.8) Condition at Discharge: (2) Stable Discharge Medications - Discharge Medications Home Medications: Ambulatory Orders Albuterol Sulfate 0.083% [Neb] [Albuterol Sulfate] 3 ml NEB .EVERY 4-6 HOURS PRN #180 ml 08/24/17 [Last Taken 08/21/18] Aspirin Enteric-Coated [Ecotrin (EC)] 81 mg PO DAILY tabec 08/24/17 [Last Taken 08/21/18] Fluticasone/Vilanterol 200/25 [Breo Ellipta 200-25 Mcg INH] 1 puff INH DAILY 30 Days #1 inhaler 09/07/18 [Last Taken Unknown] Discharge Plan - Discharge Instructions Activity at Discharge: Increase Activity as Tolerated Diet at Discharge: Advance to Usual Diet Instructions: COPD (Chronic Obstructive Pulmonary Disease) (DC), Clostridium Difficile Infection (DC) Additional Instructions: Activity: Increase Activity as Tolerated Diet: Advance to Usual Diet Consults: [] Follow Up: [] Dressing/Wound Care: (Type) (Change) Additional: [] Appointments have been scheduled for you as follows: -Yvette Varela at [facility] on Monday, 01/09 at 4PM -Thyroid reuptake at [facility] on 01/15 and 01/16, both at 9AM Take the Vanco pills: -1 pill three times a day x 1 week -1 pill twice a day x 1 week -1 pill once a day x 1 week -1 pill every other day x 4 weeks Quality Measures - Quality Measures Quality Measures: Advance Directives, Documentation of Current Medications in Medical Record, Elder Maltreatment Screen and Follow-Up Plan, Screening for High Blood Pressure and F/U Documented - Current Medications Quality Measure: Measure #130: Documentation of Current Medications Documentation of Current Medications: <Current Medications Documented/Reviewed> [[id number]] - Blood Pressure Screening Quality Measure: Screening for High Blood Pressure and Follow-Up Documented Does Patient Have Any of the Following: Active Dx of HTN Blood Pressure Classification: Pre-Hypertensive BP Reading Systolic Measurement: 138 Diastolic Measurement: 65 Screening for High Blood Pressure: Patient Exclusion, Hx of HTN [[id number]] - Advance Directives Quality Measure: Measure #47: Care Plan Advance Directives Established: No Advance Directives Information Provided To Patient: Yes Advance Directives on File: No Living Will: Yes (TRUST) Power of Electronic Masking System Operator: Yes Power of Electronic Masking System Operator Name: MAN,MARYA Advance Care Planning: <Care Plan/Decision Maker Not Decided; Discussed & Documented> [[id number]] - Elder Abuse Suspicion Index Screening: Elder Abuse Suspicion Index Screening Rely on people for bathing, dressing, shopping, banking, etc: Yes Prevented from getting food, clothes, medication, etc: No Made to feel shamed or threatened by someone: No Forced to sign papers or use money against will: No Feel afraid, touched in ways not wanted or hurt physically: No Poor eye contact, withdrawn, malnourished, cuts or bruises: No Screening Result: Negative result EASI Reference Information: Willa GARCIA, Melinda C, Deuce D, Jennifer Rivas.Development and validation of a tool to assist physicians identification of elder abuse: The Elder Abuse Suspicion Index (EASI ). Journal of Elder Abuse and Neglect, 2008; 20 (3): 276-300. - Elder Maltreatment Screen Quality Measures: Elder Maltreatment Screen and Follow-Up Plan Elder Maltreatment Screen: <Negative, No Follow-Up Plan Required> [L1548]
[2018-12-27] MEDS: ASPIRIN 81 MG TABEC PO SCH (10:10)
[2018-12-27] MEDS: BIFIDOBACTERIUM INFANTIS 4 MG CAPSULE PO SCH (10:10)
[2018-12-27] MEDS: CARVEDILOL 3.125 MG TABLET PO SCH (10:10)
[2018-12-27] MEDS: ESCITALOPRAM 10 MG TABLET PO SCH (10:11)
[2018-12-27] MEDS: DALIRESP 500 MCG PO SCH (10:12)
[2018-12-27] MEDS: EVISTA 60 MG PO SCH (10:13)
== END 2018-12-27 15:00 | disposition home or self-care (01) | DRG 373 ==
LOC: MEDSURG 13:14
PROVIDERS: ADMIT Internal Medicine; ATTEND Internal Medicine
DX: A04.72 Enterocolitis due to Clostridium difficile, not specified as recurrent (principal); R19.7 Diarrhea, unspecified; R62.7 Adult failure to thrive; E05.00 Thyrotoxicosis with diffuse goiter without thyrotoxic crisis or storm; E86.0 Dehydration; R63.4 Abnormal weight loss; F50.89 Other specified eating disorder; J44.9 Chronic obstructive pulmonary disease, unspecified; J43.9 Emphysema, unspecified; E78.5 Hyperlipidemia, unspecified; Z99.81 Dependence on supplemental oxygen; Z87.891 Personal history of nicotine dependence; Z95.5 Presence of coronary angioplasty implant and graft; Z98.61 Coronary angioplasty status
CPT/HCPCS: 71045; 80053; 83880; 84484; 85027; 93005; 94760; 94761; 97110; 97140; 99304; 99310